=== PATIENT | male | born 1965 | race African-American/Black ===

== ENCOUNTER 2025-05-09 13:13 | Emergency (ER) | payer OTHER, SELFPAY ==
[2025-05-09 13:16] VITALS: BP 158/92; PULSE 58; RESP 17; TEMP 36.7; O2SAT 97
[2025-05-09 13:49] VITALS: BP 146/89; PULSE 60; RESP 17; O2SAT 96
[2025-05-09 13:52] LABS: Hematocrit 37.0 % (42.0-52.0); Hemoglobin 12.2 g/dL (14.0-18.0); Immature Granulocyte Percent A 0.4 % (0-0.5); Lymphocytes Absolute Auto 1.80 K/mm3 (0.9-3.2); Mean Corpuscular HGB Conc 33.0 g/dl (32-36); Mean Corpuscular Hemoglobin 31.8 pg (26-34); Mean Corpuscular Volume 96.4 fl (80-100); Nucleated Red Blood Cells Absolute Auto 0.000 K/mm3 (0.0-0.012); Nucleated Red Blood Cells Perc 0.0 % (0.0-0.2); Platelet Count Result 309 k/mm3 (150-375); Red Blood Count 3.84 M/mm3 (4.6-6.20); White Blood Count 5.0 K/mm3 (4.5-10.0)
[2025-05-09 14:04] LABS: Alanine Aminotransferase 20 U/L (6-50); Albumin Level 3.9 g/dL (3.5-5.1); Alkaline Phosphatase 78 U/L (38-126); Anion Gap 6 mmol/L (4-12); Aspartate Amino Transferase 28 U/L (17-59); Bilirubin,Total 0.2 mg/dL (0.2-1.3); Blood Urea Nitrogen 7 mg/dL (9-20); Calcium 9.0 mg/dL (8.4-10.2); Carbon Dioxide 27 mmol/L (22-30); Chloride 103 mmol/L (98-107); Estimated CRCL calculation 63 ml/min; Estimated Glomerular Filt Rate > 60; Glucose 101 mg/dL (65-110); Potassium 3.9 mmol/L (3.4-5.0); Sodium 136 mmol/L (137-145); Total Protein 6.8 g/dL (6.3-8.2)
--- OUTSIDE RECORDS SUMMARY | 2025-05-09 14:05 | XMS_ITS | Encounter Summary ---
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 Role Phone No, Physician Primary Care Provider [phone] Encounter Details Date Type Department Care Team (Late st Contact Info) Description 05/09/2025 [facility] Post Discharge Follow up phone call [facility] [address] [place] [phone] In[address] Reed Social History Tobacco Use Types Packs/Day Years Used Date Smoking Tobacco: Every Day Cigarettes 1.5 43 Smokeless Tobacco: Never Alcohol Use Standard Drinks/Week Comments Yes 0 (1 standard drink = 0.6 oz pur e alcohol) daily [facility] Utilities Answer Date Recorded In the past 12 months has [employer] electric, gas, oil, or water company threatened to shut off services in your home? No 04/27/2025 Social Connection and Isolat ion Panel [NHANES] Answer Date Recorded In a typical week, how many times do you talk on the phone with family, friends, or neighbors? More than three times a week 04/27/2025 How often do you get togethe r with friends or relatives? More than three times a week 04/27/2025 How often do you attend chur ch or mormonism services? 1 to 4 times per year 04/27/2025 Do you belong to any clubs o r organizations such as anabaptist groups, unions, fraternal or athletic groups, or school groups? No 04/27/2025 How often do you attend meet ings of the clubs or organizations you belong to? Never 04/27/2025 Are you , , di vorced, , never , or living with a partner? 04/27/2025 AUDIT-C Answer Date Recorded Q1: How often do you have a drink containing alcohol? 4 or more times a week 04/26/2025 Q2: How many drinks containi ng alcohol do you have on a typical day when you are drinking? 5 or 6 Q3: How often do you have si x or more drinks on one occasion? Weekly 04/26/2025 Overall Financial Resource Strain (CARDIA) Answe r Date Recorded How hard is it for you to pa y for the very basics like food, housing, medical care, and heating? Somewhat hard 04/27/2025 Hunger Vital Sign Answer Date Recorded Within the past 12 months, y ou worried that your food would run out before you got the money to buy more. Sometimes true Within the past 12 months, t he food you bought just didn't last and you didn't have money to get more. Never true PRAPARE - Transportation Answer Date Re corded In the past 12 months, has l ack of transportation kept you from medical appointments or from getting medications? No 04/10 In the past 12 months, has l ack of transportation kept you from meetings, work, or from getting things needed for daily living? No 04/27/2025 Housing Stability Vital Sign Answer Jean Claude e Recorded In the last 12 months, was t here a time when you were not able to pay the mortgage or rent on time? No 04/27/2025 In the past 12 months, how m any times have you moved where you were living? 0 04/27/2025 At any time in the past 12 m [facility], were you homeless or living in a fdc (including now)? No 04/27/2025 Personal Safety Answer Date Recorded Have you ever been in or are you currently in a harmful physical or emotional relationship or is someone making you feel afraid or unsafe? Denies 04/26/2025 Sex and Gender Information Value Date Recorded Sex Assigned at Not on file Legal Sex Male 10:44 AM WORK STUDY STUDENT Gender Identity Not on file Sexual Orientation Not on file documented as of this encounter Plan of Treatment Not on file documented as of this encounter Visit Diagnoses Not on filedocumented in this encounter Care Teams Aircraft Powerplant Repairer Relationship Specialty Start Date End Date No, Physician PCP - General 03/11/25 documented as of this encounter
--- OUTSIDE RECORDS SUMMARY | 2025-05-09 14:06 | XMS_ITS | Clinical Summary ---
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 Name Role Phone No, Physician Primary Care Provider [phone] Allergies Active Allergy Reactions Criticality Noted Date Comments Shrimp Other (See comments) Low 11/09/2017 sick Medications aspirin 81 mg enteric coated tabletIndication s:cerebral ischemia Take 1 tablet (81 mg total) by mouth daily 30 tablet 1 03/30/2025 05/29/20 25 Active atorvastatin (LIPITOR) 80 mg tablet Take 1 tablet (80 mg total) by mouth nightly 30 tablet 1 03/29/2025 05/28/20 25 Active dilTIAZem XR (CARDIZEM CD,DILACOR XR) 240 mg 24 hr capsule Take 1 capsule (240 mg total) by mouth daily 30 capsule 03/30/2025 05/29/20 25 Active lisinopriL (PRINIVIL,ZESTRI L) 40 mg tablet Take 1 tablet (40 mg total) by mouth daily 30 tablet 03/30/2025 03/30/[address] (PROTONIX) 40 mg EC tabletIndication s:Stress Ulcer Prophylaxis Take 1 tablet (40 mg total) by mouth daily 30 tablet 03/29/2025 Active Active Problems Problem Noted Date Diagnosed Date Alcohol withdrawal syndrome without complication 04/28/2025 Lightheadedness 04/27/2025 PAC (premature atrial contraction) 04/27/2025 Epigastric pain 04/18/2025 Substance use disorder 04/18/2025 Uncontrolled hypertension 04/18/2025 PAF (paroxysmal atrial fibrillation) 03/26/2025 Alcohol use disorder 03/24/2025 Hypertensive urgency 03/23/2025 Polysubstance abuse 03/23/2025 Abdominal pain 03/22/2025 Cerebrovascular accident (CVA) 03/22/2025 Quadriceps strain, left, initial encounter 11/18 Sprain of left knee 11/18/2024 Nausea and vomiting in adult 11/18/2024 Encounters Date Type Department Care Team Description 05/09/2025 [facility] Post Discharge Follow up phone call [address] [address] Ines Reed 05/01/2025 Results Follow-Up [facility] at [address] [phone] Ely Babin MD [facility] Mobile Cardiac Telemetry Event Monitor 04/27/2025 Documentation [facility] Warm Hand Off Program [address] [place], [place] [phone] Rahul Blanca Syeda 04/26/2025 1:10 PM CDT - 04/29/2025 11:41 AM CDT Hospital Encounter [address] [address] Torie Batista MD Kheirkhahan, Nazanin, MD Hypertensive urgency (Primary Dx); Alcohol withdrawal syndrome without complication (HCC); Cocaine abuse (HCC) Discharge Disposition: Discharge to home or self care 04/23/2025 [facility] Warm Hand Off Program [address] [place], [place] [phone] Sharmila Vargas 04/21/2025 Documentation [facility] Warm Hand Off Program [address] [place] [address] Rahul Blancashaheen Lanad 04/20/2025 Documentation [facility] Warm Hand Off Program [address] [place], [place] [phone] Sharmila Vargas 04/18/2025 2:58 PM CDT - 04/23/2025 3:27 PM CDT Hospital Encounter [address] [address] Mirella Rodríguez MD Kheirkhahan, Nazanin, MD Sargsyan, Narine, MD Epigastric pain (Primary Dx); Nausea and vomiting in adult; Alcohol use disorder; Substance use disorder; Uncontrolled hypertension Discharge Disposition: Left Against Medical Advice 04/09/2025 Telephone [facility] at [facility] [address] [facility] [address] [place] [address] Daniela Linares MA 04/02/2025 Telephone [facility] Medical Group Cardiology [address] [facility] [address] [place] [address] Daniela Linares MA 03/29/2025 11:48 AM CDT - 03/29/2025 11:59 PM CDT Hospital Encounter [facility] Cardiology 1 [place] [address] PAF (paroxysmal atrial fibrillation) (HCC) Discharge Disposition: Discharge to home or self care 03/26/2025 Documentation [facility] Warm Hand Off Program [address] [place] [phone] Butch Leggett 03/24/2025 Documentation [facility] Warm Hand Off Program [address] [place] [phone] Butch Leggett 03/22/2025 5:15 AM CDT - 03/29/2025 11:36 AM CDT Hospital Encounter [facility] Acute Medicine [address] [place] [id number] Akbar Bhagat MD Richards, Carlos Harper Jr., Jia Manley, Juliana Ch MD PAF (paroxysmal atrial fibrillation) (HCC) (Primary Dx); Abdominal pain; Cerebrovascular accident (CVA), unspecified mechanism (HCC); Alcohol use disorder Discharge Disposition: Discharge to home or self care from Last 3 Months Surgical History Surgery Date Site/Laterality Comments HERNIA REPAIR Medical History Medical History Date Comments Hypertension Social History Tobacco Use Types Packs/Day Years Used Date Smoking Tobacco: Every Day Cigarettes 1.5 43 Smokeless Tobacco: Never Tobacco Cessation:Ready to Q uit: Not Asked; Counseling Given: Not Answered Alcohol Use Standard Drinks/Week Comments Yes 0 (1 standard drink = 0.6 oz pur e alcohol) daily [facility] Utilities Answer Date Recorded In the past 12 months has th e electric, gas, oil, or water company threatened [...] often do you attend chur ch or mormon services? 1 to 4 times per year 04/27/2025 Do you belong to any clubs o r organizations such as worship groups, unions, fraternal or athletic groups, or [...] any time in the past 12 m [facility], were you homeless or living in a usp (including now)? No 04/27/2025 Personal Safety Answer Date Recorded Have you ever been in or are you currently in a harmful physical or emotional relationship or is someone making you feel afraid or unsafe? Denies 04/26/2025 Sex and Gender Information Value Date Recorded Sex Assigned at Not on file Legal Sex Male 10:44 AM [employer]PONDENCE [employer]PER[employer] Gender Identity Not on file Sexual Orientation Not on file Obstetrics History Last Filed Vital Signs Vital Sign Reading Time Taken Comments Blood Pressure 134/89 04/29/2025 10:52 AM CDT Pulse 69 04/29/2025 10:52 AM CDT Temperature 36.6 C (97.9 F) 04/29/2025 10:52 AM CDT Respiratory Rate 20 04/29/2025 10:5 2 AM CDT Oxygen Saturation 99% 04/29/2025 10: 52 AM CDT Inhaled Oxygen Concentration - - Weight 58.5 kg (128 lb 15.5 oz) 04/26/2025 8:28 PM CDT Height 167.6 cm (5' 6) 04/26/2025 8:28 PM CDT Body Mass Index 20.82 04/26/2025 8:28 PM CDT Plan of Treatment Health Maintenance Due Date Last Done Comments Colon Cancer Screening-Colonoscopy 1966 Depression Screening 1966 Hepatitis C Screening 1966 Prostate Cancer Screening-PSA 1966 Hepatitis B Screening 1984 Regular Well Visit/Exam 18-64 1984 Pneumococcal vaccine <65 (1 of 2 - PCV) 1985 Lung Cancer Screening 2016 Zoster Vaccine (1 of 2) 2016 Influenza Vaccine (#1) 2025 08/17/2018, 2017 DTaP/Tdap/Td Vaccine (3 - Td or Tdap) 06/14/203201/2022, 11/16/2017 Procedures Procedure Name Priority Date/Time Associated Diagnosis Comments EGFR Routine 04/29/2025 7:17 AM CDT DIFFERENTIAL AUTO Routine 04/29/2025 7:1 7 AM CDT PHOSPHORUS Routine 04/29/2025 7:17 AM CDT COMPREHENSIVE METABOLIC PANEL Routine 04/29/2025 7:17 AM CDT CBC WITH AUTO DIFFERENTIAL Routine 04/29/2025 7:17 AM CDT EGFR Routine 04/28/2025 4:59 AM CDT DIFFERENTIAL AUTO Routine 04/28/2025 4:5 9 AM CDT PHOSPHORUS Routine 04/28/2025 4:59 AM CDT MAGNESIUM Routine 04/28/2025 4:59 AM CDT COMPREHENSIVE METABOLIC PANEL Routine 04/28/2025 4:59 AM CDT CBC WITH AUTO DIFFERENTIAL Routine 04/28/2025 4:59 AM CDT EGFR Routine 04/27/2025 5:50 AM CDT DIFFERENTIAL AUTO Routine 04/27/2025 5:5 0 AM CDT MAGNESIUM Routine 04/27/2025 5:50 AM CDT COMPREHENSIVE METABOLIC PANEL Routine 04/27/2025 5:50 AM CDT CBC WITH AUTO DIFFERENTIAL Routine 04/27/2025 5:50 AM CDT TROPONIN T HIGH-SENSITIVITY 6-HOUR Timed 04/26/2025 7:34 PM CDT ETHANOL Add-On 04/26/2025 5:19 PM CDT TROPONIN T HIGH-SENSITIVITY 4-HR Timed 04/26/2025 5:19 PM CDT SEPSIS LACTATE WITH REFLEX Timed 04/26/2025 4:47 PM CDT TROPONIN T HIGH-SENSITIVITY 2-HOUR Timed 04/26/2025 4:[address] HEAD WO CONTRAST ED 04/26/2025 3 :42 PM CDT XR CHEST 1 VIEW ED 04/26/2025 1:41 PM CDT TROPONIN T HIGH-SENSITIVITY SERIES (BASELINE, 2HR, 4HR, 6HR) STAT 04/26/2025 1:41 PM CDT SEPSIS LACTATE WITH REFLEX STAT 04/26/2025 1:41 PM CDT URINALYSIS AND REFLEX TO MICROSCOPIC AND CULTURE STAT 04/26/2025 1:00 PM CDT PROTIME-INR STAT 04/26/2025 12:14 PM CDT LIPASE STAT 04/26/2025 12:14 PM CDT EGFR STAT 04/26/2025 12:14 PM CDT DIFFERENTIAL AUTO STAT 04/26/2025 12: 14 PM CDT COMPREHENSIVE METABOLIC PANEL STAT 04/26/2025 12:14 PM CDT CBC WITH AUTO DIFFERENTIAL STAT 04/26/2025 12:14 PM CDT ECG 12-LEAD STAT 04/26/2025 12:08 PM CDT CBC WITHOUT DIFFERENTIAL Routine 04/22/2025 11:11 AM CDT EGFR Routine 04/21/2025 9:00 AM CDT COMPREHENSIVE METABOLIC PANEL Routine 04/21/2025 9:00 AM CDT HEMOGLOBIN AND HEMATOCRIT Timed 04/20/2025 5:49 AM CDT EGFR Routine 04/20/2025 12:15 AM CDT MAGNESIUM Routine 04/20/2025 12:15 AM CDT COMPREHENSIVE METABOLIC PANEL Routine 04/20/2025 12:15 AM CDT HEMOGLOBIN AND HEMATOCRIT Timed 04/20/2025 12:15 AM CDT HEMOGLOBIN AND HEMATOCRIT Timed 04/19/2025 5:38 PM CDT HEMOGLOBIN AND HEMATOCRIT Timed 04/19/2025 11:35 AM CDT EGFR Routine 04/19/2025 6:43 AM CDT DIFFERENTIAL AUTO Routine 04/19/2025 6:4 3 AM CDT MAGNESIUM Routine 04/19/2025 6:43 AM CDT COMPREHENSIVE METABOLIC PANEL Routine 04/19/2025 6:43 AM CDT CBC WITH AUTO DIFFERENTIAL Routine 04/19/2025 6:43 AM CDT DRUGS OF ABUSE SCREEN, URINE WITHOUT CONFIRMATION STAT 04/18/2025 8:51 PM CDT URINALYSIS AND REFLEX TO MICROSCOPIC AND CULTURE STAT 04/18/2025 8:[address] ABDOMEN PELVIS W CONTRAST ED 04/18/2025 7:20 PM CDT ETHANOL STAT 04/18/2025 7:03 PM CDT TROPONIN T HIGH-SENSITIVITY 6-HOUR Timed 04/18/2025 7:03 PM CDT TROPONIN T HIGH-SENSITIVITY 4-HR Timed 04/18/2025 4:11 PM CDT XR CHEST 1 VIEW ED 04/18/2025 12:31 PM CDT LIPASE STAT 04/18/2025 12:17 PM CDT EGFR STAT 04/18/2025 12:17 PM CDT DIFFERENTIAL AUTO STAT 04/18/2025 12: 17 PM CDT TROPONIN T HIGH-SENSITIVITY SERIES (BASELINE, 2HR, 4HR, 6HR) STAT 04/18/2025 12:17 PM CDT COMPREHENSIVE METABOLIC PANEL STAT 04/18/2025 12:17 PM CDT CBC WITH AUTO DIFFERENTIAL STAT 04/18/2025 12:17 PM CDT ECG 12-LEAD STAT 04/18/2025 12:11 PM CDT MCT - MOBILE CARDIAC TELEMETRY EVENT MONITOR Routine 03/29/2025 11:56 AM CDT PAF (paroxysmal atrial fibrillation) (HCC) EGFR Routine 03/29/2025 4:03 AM CDT CBC WITHOUT DIFFERENTIAL Routine 03/29/2025 4:03 AM CDT BASIC METABOLIC PANEL Routine 03/29/2025 4:03 AM CDT MRI ABDOMEN KIDNEY W WO CONTRAST IP Routine 03/28/2025 3:25 PM CDT EGFR Routine 03/28/2025 6:42 AM CDT CBC WITHOUT DIFFERENTIAL Routine 03/28/2025 6:42 AM CDT BASIC METABOLIC PANEL Routine 03/28/2025 6:42 AM CDT US KIDNEY COMPLETE IP Routine 03/27/2025 3: 41 PM CDT EGFR Routine 03/27/2025 10:52 AM CDT CBC WITHOUT DIFFERENTIAL Routine 03/27/2025 10:52 AM CDT BASIC METABOLIC PANEL Routine 03/27/2025 10:52 AM CDT URINALYSIS AND REFLEX TO MICROSCOPIC Routine 03/27/2025 6:[address] ABDOMEN PELVIS WO CONTRAST IP Routine 03/26/2025 3:27 PM CDT XR KUB IP Routine 03/26/2025 12:15 PM CDT ECG 12-LEAD Routine 03/26/2025 11:02 AM CDT MAGNESIUM STAT 03/26/2025 6:40 AM CDT EGFR Routine 03/26/2025 6:40 AM CDT BASIC METABOLIC PANEL Routine 03/26/2025 6:40 AM CDT EGFR Routine 03/24/2025 5:56 AM CDT DIFFERENTIAL AUTO Routine 03/24/2025 5:5 6 AM CDT PHOSPHORUS Routine 03/24/2025 5:56 AM CDT MAGNESIUM Routine 03/24/2025 5:56 AM CDT COMPREHENSIVE METABOLIC PANEL Routine 03/24/2025 5:56 AM CDT CBC WITH AUTO DIFFERENTIAL Routine 03/24/2025 5:56 AM CDT EGFR Routine 03/23/2025 3:34 AM CDT DIFFERENTIAL AUTO Routine 03/23/2025 3:3 4 AM CDT COMPREHENSIVE METABOLIC PANEL Routine 03/23/2025 3:34 AM CDT CBC WITH AUTO DIFFERENTIAL Routine 03/23/2025 3:34 AM CDT LIPID PANEL Routine 03/23/2025 3:34 AM CDT HEMOGLOBIN A1C Routine 03/23/2025 3:34 AM CDT DRUGS OF ABUSE SCREEN, URINE WITHOUT CONFIRMATION STAT 03/22/2025 6:16 PM CDT URINALYSIS AND REFLEX TO MICROSCOPIC AND CULTURE STAT 03/22/2025 6:16 PM CDT US CAROTIDS DUPLEX BILATERAL IP Routine 03/22/2025 5:31 PM CDT MRI BRAIN WO CONTRAST ED 03/22/2025 1:56 PM CDT TRANSTHORACIC ECHO (TTE) COMPLETE W DOPPLER/CF WO CONTRAST W BUBBLE Routine 03/22/2025 10:53 AM CDT B ABO / RH CONFIRMATION TESTING STAT 03/22/2025 10:10 AM CDT ETHANOL Add-On 03/22/2025 10:[address] ABDOMEN PELVIS W CONTRAST ED 03/22/2025 7:09 AM CDT XR CHEST 1 VIEW ED 03/22/2025 6:28 AM CDT LIPASE Add-On 03/22/2025 5:59 AM CDT ANTIBODY SCREEN STAT 03/22/2025 5:59 AM CDT ABO/RH STAT 03/22/2025 5:59 AM CDT TYPE AND SCREEN STAT 03/22/2025 5:59 AM CDT APTT STAT 03/22/2025 5:59 AM CDT PROTIME-INR STAT 03/22/2025 5:59 AM CDT TROPONIN T HIGH-SENSITIVITY STAT 03/22/2025 5:59 AM CDT ECG 12-LEAD Routine 03/22/2025 5:[address] HEAD WO CONTRAST ED 03/22/2025 4 :45 AM CDT EGFR STAT 03/22/2025 2:24 AM CDT DIFFERENTIAL AUTO STAT 03/22/2025 2:2 4 AM CDT COMPREHENSIVE METABOLIC PANEL STAT 03/22/2025 2:24 AM CDT CBC WITH AUTO DIFFERENTIAL STAT 03/22/2025 2:24 AM CDT from Last 3 Months Results * eGFR (04/29/2025 7:17 AM CDT) [facility] eGFR 80 >=60 mL/min/1. 73 m2 Comment: Interpretive Data Reference Interval Normal >/= 90 mL/min/1.73m2 Mildly decreased* 60 - 89 mL/min/1.73m2 Mildly to moderately decreased 45 - 59 mL/min/1.73m2 Moderately to severely decreased 30 - 44 mL/min/1.73m2 Severely decreased 15 - 29 mL/min/1.73m2 Kidney Failure < 15 mL/min/1.73m2 *Relative to young adult level Estimated glomerular filtration rate is determined by the 2021 CKD-EPI equation recommended by the National Kidney Foundation (A Unifying Approach to GFR Estimation: Recommendations of the NKF-ASK Task Force on Reassessing the Inclusion of Race in Diagnosing Kidney Disease, JASN 2020). The CKD-EPI equation should not be used for patients with unstable renal function and has not been validated in children and those over 70. Current interpretive data was last reviewed 2021. Blood 04/29/2025 7:17 AM CDT 04/29/2025 7:23 AM CDT us Simon Pham MD LAB BLOOD ORDERABLES Final Resu lt [facility] ([place]) [address] [facility] [place] [address] * Differential, auto (04/29/2025 7:17 AM CDT) Neutrophil abs 2.34 1.50 - 6.50 K/cumm Imm gran abs 0.02 0.00 - 0.10 K/cumm [facility] ([facility]) Lymphocyte abs 1.62 0.80 - 3.30 K/cumm [facility] ([facility]) Monocyte abs 0.78 0.20 - 0.80 K/cumm [facility] ([facility]) Eosinophil abs 0.41 0.00 - 0.50 K/cumm [facility] ([facility]) Basophil abs 0.05 0.00 - 0.10 K/cumm [facility] ([facility]) Neutrophil pct 44.8 % [facility] ([facility]) Comment: Interpretive Data Percent cell count reference ranges are not reported, since discordance with absolute values may lead to misinterpretation of CBC data. Current Interpretive Data was last revised on 2018. Imm gran pct 0.4 % [facility] ([facility]) Comment: Interpretive Data Percent cell count reference ranges are not reported, since discordance with absolute values may lead to misinterpretation of CBC data. Current Interpretive Data was last revised on 2018. Lymphocyte pct 31.0 % [facility] ([facility]) Comment: Interpretive Data Percent cell count reference ranges are not reported, since discordance with absolute values may lead to misinterpretation of CBC data. Current Interpretive Data was last revised on 2018. Monocyte pct 14.9 % [facility] ([facility]) Comment: Interpretive Data Percent cell count reference ranges are not reported, since discordance with absolute values may lead to misinterpretation of CBC data. Current Interpretive Data was last revised on 2018. Eosinophil pct 7.9 % [facility] ([facility] Comment: Interpretive Data Percent cell count reference ranges are not reported, since discordance with absolute values may lead to misinterpretation of CBC data. Current Interpretive Data was last revised on 2018. Basophil pct 1.0 % [facility] ([facility]) Comment: Interpretive Data Percent cell count reference ranges are not reported, since discordance with absolute values may lead to misinterpretation of CBC data. Current Interpretive Data was last revised on 2018. Blood 04/29/2025 7:17 AM CDT 04/29/2025 7:23 AM CDT us Simon Pham MD LAB BLOOD ORDERABLES Final Resu lt [facility] ([facility]) [address] [facility] Department [place] [address] * (ABNORMAL) CBC with auto differential (04/29/2025 7:17 AM CDT) WBC 5.22 3.80 - 9.90 K/cumm Hgb 12.3(L) 13.0 - 17.5 g/dL [facility] ([facility]) Hct 36.8(L) 38.9 - 50.3 % [facility] ([facility]) Plt 277 150 - 400 K/cumm [facility] ([facility]) MPV 9.4 9.1 - 12.3 fL [facility]) RBC 3.82(L) 4.30 - 5.80 M/cumm [facility] ([facility]) MCV 96.3 81.3 - 96.4 fL [facility]) MCH 32.2 27.1 - 33.3 pg [facility]) MCHC 33.4 32.3 - 35.7 g/dL [facility]) RDW CV 12.3 11.1 - 14.9 % [facility]) RDW SD 43.5 35.7 - 48.1 fL [facility]) NRBC abs 0.00 0.00 - 0.01 K/cumm [facility] ([facility]) Blood 04/29/2025 7:17 AM CDT 04/29/2025 7:23 AM CDT Simon Pham MD LAB BLOOD ORDERABLES Final Resu lt [facility] ([facility]) 1 [facility] [employer] [place] [address] * Phosphorus (04/29/2025 7:17 AM CDT) Pathologist [facility] Phosphorus, pl 3.1 2.3 - 4.5 mg/dL [facility] Blood 04/29/2025 7:17 AM CDT 04/29/2025 7:23 AM CDT us Simon Pham MD LAB BLOOD ORDERABLES Final Resu lt [facility] ([facility]) [facility] [place] [employer] [place] [address] * (ABNORMAL) Comprehensive metabolic panel (04/29/2025 7:17 AM CDT) Sodium 141 135 - 145 mmol/L [facility] Potassium, pl 4.5 3.3 - 4.9 mmol/L [facility]) Chloride 107 97 - 110 mmol/L [facility]) CO2 28 22 - 32 mmol/L [facility]) Anion gap 6 2 - 15 mmol/L [facility] BUN 7 6 - 25 mg/dL [facility] Creatinine 1.07 0.80 - 1.30 mg/dL [facility]) Glucose 97 70 - 199 mg/dL [facility] Comment: Interpretive Data Fasting glucose >/= 126 mg/dl is diagnostic for diabetes. Fasting is defined as no caloric intake for at least 8 hours. Fasting glucose between 100 mg/dl to 125 mg/dl is diagnostic of prediabetes. In a patient with classic symptoms of hyperglycemia or hyperglycemic crisis, a random glucose >/= 200 mg/dl is diagnostic for diabetes. In the absence of unequivocal hyperglycemia, results should be confirmed by repeat testing. The classification and Diagnosis of Diabetes Diabetes Care 2021; 46: S19-S40. Current interpretive data was last revised 2022. Calcium 9.0 8.5 - 10.3 mg/dL [facility] ([facility]) Bilirubin, total 0.2 0.1 - 1.2 mg/dL [facility] ([facility]) Protein, pl 6.2(L) 6.5 - 8.5 g/dL [facility]) Albumin 3.7 3.5 - 5.0 g/dL [facility]) Alk phos 74 40 - 130 Units/L [facility] ALT 13 7 - 55 Units/L [facility] AST 13 10 - 50 Units/L [facility]) Blood 04/29/2025 7:17 AM CDT 04/29/2025 7:23 AM CDT us Simon Pham MD LAB BLOOD ORDERABLES Final Resu lt [facility] ([facility]) [address] [facility] Department [place] [address] * eGFR (04/28/2025 4:59 AM CDT) eGFR >90 >=60 mL/min/1. 73 m2 Comment: Interpretive Data Reference Interval Normal >/= 90 mL/min/1.73m2 Mildly decreased* 60 - 89 mL/min/1.73m2 Mildly to moderately decreased 45 - 59 mL/min/1.73m2 Moderately to severely decreased 30 - 44 mL/min/1.73m2 Severely decreased 15 - 29 mL/min/1.73m2 Kidney Failure < 15 mL/min/1.73m2 *Relative to young adult level Estimated glomerular filtration rate is determined by the 2020 CKD-EPI equation recommended by the National Kidney Foundation (A Unifying Approach to GFR Estimation: Recommendations of the NKF-ASK Task Force on Reassessing the Inclusion of Race in Diagnosing Kidney Disease, JASN 2020). The CKD-EPI equation should not be used for patients with unstable renal function and has not been validated in children and those over 70. Current interpretive data was last reviewed 2021. Blood 04/28/2025 4:59 AM CDT 04/28/2025 6:11 AM CDT us Simon Pham MD LAB BLOOD ORDERABLES Final Resu lt [facility] ([place] [address] [facility] Department [place] [address] * (ABNORMAL) Differential, auto (04/28/2025 4:59 AM CDT) Neutrophil abs 1.93 1.50 - 6.50 K/cumm Imm gran abs 0.02 0.00 - 0.10 K/cumm [facility] ([facility]) Lymphocyte abs 1.76 0.80 - 3.30 K/cumm [facility] ([facility]) Monocyte abs 0.81(H) 0.20 - 0.80 K/cumm [facility] ([facility]) Eosinophil abs 0.46 0.00 - 0.50 K/cumm [facility] ([facility]) Basophil abs 0.05 0.00 - 0.10 K/cumm [facility]) Neutrophil pct 38.4 % [facility]) Comment: Interpretive Data Percent cell count reference ranges are not reported, since discordance with absolute values may lead to misinterpretation of CBC data. Current Interpretive Data was last revised on 2018. Imm gran pct 0.4 % [facility] ([facility]) Comment: Interpretive Data Percent cell count reference ranges are not reported, since discordance with absolute values may lead to misinterpretation of CBC data. Current Interpretive Data was last revised on 2018. Lymphocyte pct 35.0 % [facility] ([facility] Comment: Interpretive Data Percent cell count reference ranges are not reported, since discordance with absolute values may lead to misinterpretation of CBC data. Current Interpretive Data was last revised on 2018. Monocyte pct 16.1 % [facility] Comment: Interpretive Data Percent cell count reference ranges are not reported, since discordance with absolute values may lead to misinterpretation of CBC data. Current Interpretive Data was last revised on 2018. Eosinophil pct 9.1 % [facility] ([facility]) Comment: Interpretive Data Percent cell count reference ranges are not reported, since discordance with absolute values may lead to misinterpretation of CBC data. Current Interpretive Data was last revised on 2018. Basophil pct 1.0 % [facility] ([facility]) Comment: Interpretive Data Percent cell count reference ranges are not reported, since discordance with absolute values may lead to misinterpretation of CBC data. Current Interpretive Data was last revised on 2018. Blood 04/28/2025 4:59 AM CDT 04/28/2025 6:11 AM CDT us Simon Pham MD LAB BLOOD ORDERABLES Final Resu lt [facility] ([facility]) [address] [facility] Department [place] [address] * (ABNORMAL) CBC with auto differential (04/28/2025 4:59 AM CDT) WBC 5.03 3.80 - 9.90 K/cumm Hgb 11.3(L) 13.0 - 17.5 g/dL [facility] ([facility]) Hct 34.0(L) 38.9 - 50.3 % [facility] Plt 257 150 - 400 K/cumm [facility]) MPV 10.2 9.1 - 12.3 fL [facility] RBC 3.54(L) 4.30 - 5.80 M/cumm [facility] ([facility]) MCV 96.0 81.3 - 96.4 fL [facility]) MCH 31.9 27.1 - 33.3 pg [facility]) MCHC 33.2 32.3 - 35.7 g/dL [facility]) RDW CV 12.3 11.1 - 14.9 % [facility]) RDW SD 43.8 35.7 - 48.1 fL [facility] ([facility]) NRBC abs 0.00 0.00 - 0.01 K/cumm [facility]) Blood 04/28/2025 4:59 AM CDT 04/28/2025 6:11 AM CDT Simon Pham MD LAB BLOOD ORDERABLES Final Resu lt Performing Organization Address [facility] Co de Phone Number [facility] ([facility] [address] [facility] [place] [address] * Phosphorus (04/28/2025 4:59 AM CDT) Phosphorus, pl 3.0 2.3 - 4.5 mg/dL [facility] ([facility] Blood 04/28/2025 4:59 AM CDT 04/28/2025 6:11 AM CDT Simon Pham MD LAB BLOOD ORDERABLES Final Resu lt Performing Organization Address City/[facility] Co de Phone Number [facility] ([facility] [address] [facility] [place] [address] * Magnesium (04/28/2025 4:59 AM CDT) Magnesium 2.0 1.4 - 2.5 mg/dL [facility] ([facility] Blood 04/28/2025 4:59 AM CDT 04/28/2025 6:11 AM CDT Simon Pham MD LAB BLOOD ORDERABLES Final Resu lt Performing Organization Address City/[facility]/ZIP Co de Phone Number [facility] ([facility]) [address] [facility] Department [place] [address] * (ABNORMAL) Comprehensive metabolic panel (04/28/2025 4:59 AM CDT) Sodium 140 135 - 145 mmol/L [facility] ([facility]) Potassium, pl 3.5 3.3 - 4.9 mmol/L [facility]) Chloride 108 97 - 110 mmol/L [facility]) CO2 21(L) 22 - 32 mmol/L [facility]) Anion gap 11 2 - 15 mmol/L [facility]) BUN 7 6 - 25 mg/dL [facility]) Creatinine 0.96 0.80 - 1.30 mg/dL [facility]) Glucose 157 70 - 199 mg/dL [facility] ([facility]) Comment: Interpretive Data Fasting glucose >/= 126 mg/dl is diagnostic for diabetes. Fasting is defined as no caloric intake for at least 8 hours. Fasting glucose between 100 mg/dl to 125 mg/dl is diagnostic of prediabetes. In a patient with classic symptoms of hyperglycemia or hyperglycemic crisis, a random glucose >/= 200 mg/dl is diagnostic for diabetes. In the absence of unequivocal hyperglycemia, results should be confirmed by repeat testing. The classification and Diagnosis of Diabetes Diabetes Care 2021; 46: S19-S40. Current interpretive data was last revised 2022. Calcium 8.6 8.5 - 10.3 mg/dL [facility] ([place]) Bilirubin, total 0.2 0.1 - 1.2 mg/dL [facility] ([place]) Protein, pl 5.7(L) 6.5 - 8.5 g/dL [facility] ([place]) Albumin 3.5 3.5 - 5.0 g/dL [facility] ([place]) Alk phos 66 40 - 130 Units/L [facility] ([place]) ALT 16 7 - 55 Units/L [facility] ([place]) AST 15 10 - 50 Units/L [facility] ([place]) Blood 04/28/2025 4:59 AM CDT 04/28/2025 6:11 AM CDT Simon Pham MD LAB BLOOD ORDERABLES Final Resu lt Performing Organization Address City/[facility]/ZIP Co de Phone Number [place] ([place]) 1 [facility] [employer] [place] [address] * eGFR (04/27/2025 5:50 AM CDT) eGFR 82 >=60 mL/min/1. 73 m2 Comment: Interpretive Data Reference Interval Normal >/= 90 mL/min/1.73m2 Mildly decreased* 60 - 89 mL/min/1.73m2 Mildly to moderately decreased 45 - 59 mL/min/1.73m2 Moderately to severely decreased 30 - 44 mL/min/1.73m2 Severely decreased 15 - 29 mL/min/1.73m2 Kidney Failure < 15 mL/min/1.73m2 *Relative to young adult level Estimated glomerular filtration rate is determined by the 2020 CKD-EPI equation recommended by the National Kidney Foundation (A Unifying Approach to GFR Estimation: Recommendations of the NKF-ASK Task Force on Reassessing the Inclusion of Race in Diagnosing Kidney Disease, JASN 2020). The CKD-EPI equation should not be used for patients with unstable renal function and has not been validated in children and those over 70. Current interpretive data was last reviewed 2021. Blood 04/27/2025 5:50 AM CDT 04/27/2025 6:13 AM CDT Simon Pham MD LAB BLOOD ORDERABLES Final Resu lt [place] ([place]) 1 [facility] [place] [address] * (ABNORMAL) Differential, auto (04/27/2025 5:50 AM CDT) Neutrophil abs 1.88 1.50 - 6.50 K/cumm Imm gran abs 0.02 0.00 - 0.10 K/cumm [place] ([place]) Lymphocyte abs 1.65 0.80 - 3.30 K/cumm [facility] ([place]) Monocyte abs 0.81(H) 0.20 - 0.80 K/cumm [facility] ([place]) Eosinophil abs 0.40 0.00 - 0.50 K/cumm [facility] ([place]) Basophil abs 0.04 0.00 - 0.10 K/cumm [facility] ([place]) Neutrophil pct 39.2 % [facility] ([place]) Comment: Interpretive Data Percent cell count reference ranges are not reported, since discordance with absolute values may lead to misinterpretation of CBC data. Current Interpretive Data was last revised on 2018. Imm gran pct 0.4 % [facility] ([place]) Comment: Interpretive Data Percent cell count reference ranges are not reported, since discordance with absolute values may lead to misinterpretation of CBC data. Current Interpretive Data was last revised on 2018. Lymphocyte pct 34.4 % [facility] ([place]) Comment: Interpretive Data Percent cell count reference ranges are not reported, since discordance with absolute values may lead to misinterpretation of CBC data. Current Interpretive Data was last revised on 2018. Monocyte pct 16.9 % [facility] ([place]) Comment: Interpretive Data Percent cell count reference ranges are not reported, since discordance with absolute values may lead to misinterpretation of CBC data. Current Interpretive Data was last revised on 2018. Eosinophil pct 8.3 % [facility] ([place]) Comment: Interpretive Data Percent cell count reference ranges are not reported, since discordance with absolute values may lead to misinterpretation of CBC data. Current Interpretive Data was last revised on 2018. Basophil pct 0.8 % [facility] ([place]) Comment: Interpretive Data Percent cell count reference ranges are not reported, since discordance with absolute values may lead to misinterpretation of CBC data. Current Interpretive Data was last revised on 2018. Blood 04/27/2025 5:50 AM CDT 04/27/2025 6:13 AM CDT us Simon Pham MD LAB BLOOD ORDERABLES Final Resu lt [facility] ([place]) 1 [facility] [place] [address] * (ABNORMAL) CBC with auto differential (04/27/2025 5:50 AM CDT) WBC 4.80 3.80 - 9.90 K/cumm Hgb 11.6(L) 13.0 - 17.5 g/dL [facility] ([place]) Hct 34.8(L) 38.9 - 50.3 % [facility] ([place]) Plt 254 150 - 400 K/cumm [facility] ([place]) MPV 10.1 9.1 - 12.3 fL [facility] ([place]) RBC 3.61(L) 4.30 - 5.80 M/cumm [facility] ([place]) MCV 96.4 81.3 - 96.4 fL [facility] ([place]) MCH 32.1 27.1 - 33.3 pg [facility] ([place]) MCHC 33.3 32.3 - 35.7 g/dL [facility] ([place]) RDW CV 12.6 11.1 - 14.9 % [facility] ([place]) RDW SD 44.7 35.7 - 48.1 fL [facility] ([place]) NRBC abs 0.00 0.00 - 0.01 K/cumm [facility] ([place]) Blood 04/27/2025 5:50 AM CDT 04/27/2025 6:13 AM CDT us Simon Pham MD LAB BLOOD ORDERABLES Final Resu lt [place] ([place]) 1 [facility] [place] [address] * Magnesium (04/27/2025 5:50 AM CDT) Pathologist [facility] Magnesium 1.8 1.4 - 2.5 mg/dL [facility] ([place]) Blood 04/27/2025 5:50 AM CDT 04/27/2025 6:13 AM CDT us Simon Pham MD LAB BLOOD ORDERABLES Final Resu lt [facility] ([place]) 1 [facility] [place] [address] * (ABNORMAL) Comprehensive metabolic panel (04/27/2025 5:50 AM CDT) Sodium 140 135 - 145 mmol/L [facility] ([place]) Potassium, pl 4.0 3.3 - 4.9 mmol/L [facility] ([place]) Chloride 108 97 - 110 mmol/L [facility] ([place]) CO2 23 22 - 32 mmol/L [facility] ([place]) Anion gap 9 2 - 15 mmol/L [facility] ([place]) BUN 10 6 - 25 mg/dL [facility] ([place]) Creatinine 1.05 0.80 - 1.30 mg/dL [facility] ([place]) Glucose 92 70 - 199 mg/dL [facility] ([place]) Comment: Interpretive Data Fasting glucose >/= 126 mg/dl is diagnostic for diabetes. Fasting is defined as no caloric intake for at least 8 hours. Fasting glucose between 100 mg/dl to 125 mg/dl is diagnostic of prediabetes. In a patient with classic symptoms of hyperglycemia or hyperglycemic crisis, a random glucose >/= 200 mg/dl is diagnostic for diabetes. In the absence of unequivocal hyperglycemia, results should be confirmed by repeat testing. The classification and Diagnosis of Diabetes Diabetes Care 2021; 46: S19-S40. Current interpretive data was last revised 2022. Calcium 8.7 8.5 - 10.3 mg/dL [facility] ([place]) Bilirubin, total 0.2 0.1 - 1.2 mg/dL [facility] ([place]) Protein, pl 5.6(L) 6.5 - 8.5 g/dL [facility] ([place]) Albumin 3.3(L) 3.5 - 5.0 g/dL [facility] ([place]) Alk phos 69 40 - 130 Units/L [facility] ([place]) ALT 15 7 - 55 Units/L [facility] ([place]) AST 25 10 - 50 Units/L [facility] ([place]) Blood 04/27/2025 5:50 AM CDT 04/27/2025 6:13 AM CDT us Simon Pham MD LAB BLOOD ORDERABLES Final Resu lt Performing Organization Address [facility] Co de Phone Number [place] ([place]) 1 [facility] [employer] [place] [place] [address] * Troponin T high-sensitivity 6-hour (04/26/2025 7:34 PM CDT) Trop T hs 15 <=22 ng/L [facility] ([place]) Comment: Interpretive Data For further hscTnT resources including the diagnostic algorithm and an aid in interpretation, copy and paste this link: [email or web address].H.[email or web address]/show/hsTrop Current Interpretive Data last revised 2020. Trop T hs delta 1 ng/L [facility] ([place]) Trop T hs interp Insignificant [facility] ([place]) Blood 04/26/2025 7:34 PM CDT 04/26/2025 7:39 PM CDT us Torie Batista MD LAB BLOOD ORDERABLES Ellen l Result Performing Organization Address City/[facility] Co de Phone Number [place] ([place]) 1 [facility] [employer] [place] [place] [address] * Troponin T high-sensitivity 4-hour (04/26/2025 5:19 PM CDT) Trop T hs 15 <=22 ng/L [facility] ([place]) Comment: Interpretive Data For further hscTnT resources including the diagnostic algorithm and an aid in interpretation, copy and paste this link: [email or web address].H.[email or web address]/show/hsTrop Current Interpretive Data last revised 2020. Trop T hs delta 1 ng/L [facility] ([place]) Trop T hs interp Insignificant [facility] ([place]) Blood 04/26/2025 5:19 PM CDT 04/26/2025 5:51 PM CDT Torie Batista MD LAB BLOOD ORDERABLES Ellen l Result Performing Organization Address [facility]/ZIP Co de Phone Number [place] ([place]) 1 [facility] [place] [address] * Ethanol (04/26/2025 5:19 PM CDT) Ethanol <10 <=10 mg/dL [facility] ([place]) Comment: Interpretive Data Legal limit of intoxication > or = 80 mg/dL Levels > or = 400 mg/dL are potentially TOXIC. Current interpretive data was last revised on 2018. Blood 04/26/2025 5:19 PM CDT 04/26/2025 5:21 PM CDT Torie Batista MD LAB BLOOD ORDERABLES Ellen l Result Performing Organization Address [facility] Co de Phone Number [place] ([place]) 1 [place] [address] * Troponin T high-sensitivity 2-hour (04/26/2025 4:47 PM CDT) Trop T hs 13 <=22 ng/L [place] [facility] ([place]) Comment: Interpretive Data For further hscTnT resources including the diagnostic algorithm and an aid in interpretation, copy and paste this link: https://nrl.testcatalog.org/show/hsTrop Current Interpretive Data last revised 2020. Trop T hs delta See Comment ng/L CE [facility] ([place]) Comment: Inappropriate collection time to report a delta. Testing performed by: [place], [address] Trop T hs pct delta See Comment % [place] ([place]) Comment: Inappropriate collection time to report a delta. Testing performed by: [place], [address] Trop T hs interp See Comment C [place] ([place]) Comment: Inappropriate collection time to report a delta. Testing performed by: [facility], [facility], [place], [address] Blood 04/26/2025 4:47 PM CDT 04/26/2025 4:49 PM CDT Torie Batista MD LAB BLOOD ORDERABLES Ellen l Result [place] ([place]) 1 [facility] Department [place] [address] * Sepsis Lactate w/ Reflex (04/26/2025 4:47 PM CDT) Sepsis Lactate 1.4 0.7 - 2.0 mmol/L Blood 04/26/2025 4:47 PM CDT 04/26/2025 4:49 PM CDT Torie Batista MD LAB BLOOD ORDERABLES Ellen l Result Performing Organization Address [facility] Co de Phone Number [place] ([place]) 1 [place] [address] * CT Head WO Contrast (04/26/2025 3:42 PM CDT) Anatomical Region Laterality Modality Head and Neck N/A Computed Tomogra phy 04/26/2025 4:13 PM CDT Narrative 04/26/2025 4:25 PM CDT EXAM DESCRIPTION: CT HEAD WO CONTRAST REASON FOR STUDY: Dizziness Weakness and feeling faint x 2 hours. Hx of hypertension. TECHNIQUE: Axial images acquired through the brain without intravenous contrast. Images stored on PACS. Automated exposure control was used as a dose optimization technique for this examination. COMPARISON: Comparison head CT 03/22/2025. FINDINGS: BRAIN: Exam compromised by significant patient motion artifact. Within limitation, no acute hemorrhage, edema or mass effect. No recent infarct. 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 No cortical infarct. No mass effect or midline shift. Patchy low density of white matter in periventricular and subcortical regions in keeping with microvascular change.. EXTRA-AXIAL SPACES: No fluid collections. No masses. CALVARIUM: No fracture. SINUSES/MASTOIDS: No fluid or mucosal thickening. ORBITS: No significant abnormality. OTHER: No other significant abnormality. IMPRESSION: Exam compromised by significant patient motion artifact. Within limitation, no acute intracranial findings. MRI may be beneficial for further evaluation. THIS IS AN ELECTRONICALLY VERIFIED FINAL REPORT 04/26/2025 4:25 PM - Electronically signed by Scott TIDWELL: DIANN Report ID: [id number] Reading Location: [id number] Procedure Note Viridiana Arce MD - 04/26/2025 EXAM DESCRIPTION: CT HEAD WO CONTRAST REASON FOR STUDY: Dizziness Weakness and feeling faint x 2 hours. Hx of hypertension. TECHNIQUE: Axial images acquired through the brain without intravenous contrast. Images stored on PACS. Automated exposure control was used asa dose optimization technique for this examination. COMPARISON: Comparison head CT 03/22/2025. FINDINGS: BRAIN: Exam compromised by significant patient motion artifact. Within limitation, no acute hemorrhage, edema or mass effect. No recent infarct. 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 Nocortical infarct. No mass effect or midline shift. Patchy low density of whitematter in periventricular and subcortical regions in keeping with microvascular change.. EXTRA-AXIAL SPACES: No fluid collections. No masses. CALVARIUM: No fracture. SINUSES/MASTOIDS: No fluid or mucosal thickening. ORBITS: No significant abnormality. OTHER: No other significant abnormality. IMPRESSION: Exam compromised by significant patient motion artifact. Withinlimitation, no acute intracranial findings. MRI may be beneficial for furtherevaluation. THIS IS AN ELECTRONICALLY VERIFIED FINAL REPORT 04/26/2025 4:25 PM - Electronically signed by Scott Arce M.D. LC: DIANN Report ID: [id number] Reading Location: [id number] Torie Batista MD IMG CT PROCEDURES Final R esult * XR Chest 1 Vw Portable (04/26/2025 1:41 PM CDT) Anatomical Region Laterality Modality Body, Chest N/A Computed Radiogr aphy 04/26/2025 1:50 PM CDT Narrative 04/26/2025 1:51 PM CDT EXAM DESCRIPTION: XR CHEST 1 VIEW REASON FOR STUDY: weakness Pt arrives with c/o weakness and feeling faint x 2 hours. Hx HTN TECHNIQUE: Single frontal radiographic view(s) of the chest. COMPARISON: 04/18/2025 FINDINGS: The heart, mediastinum, and pulmonary vasculature are grossly stable. There is no definite evidence of a pneumothorax. There is no definite evidence effusion. There are mild patchy right basilar airspace opacities. The osseous structures are acutely grossly stable. IMPRESSION: 1. Mild patchy right basilar airspace opacities, which is likely related to subsegmental atelectasis/scarring and less likely developing airspace disease. THIS IS AN ELECTRONICALLY VERIFIED FINAL REPORT 04/26/2025 1:51 PM - Electronically signed by Jewels Becerra D.O. PS: PS Report ID: [id number] Reading Location: [id number] Procedure Note Jewels Becerra, DO - 04/26/2025 EXAM DESCRIPTION: XR CHEST 1 VIEW REASON FOR STUDY: weakness Pt arrives with c/o weakness and feeling faint x 2 hours. Hx HTN TECHNIQUE: Single frontal radiographic view(s) of the chest. COMPARISON: 04/18/2025 FINDINGS: The heart, mediastinum, and pulmonary vasculature are grossly stable.There is no definite evidence of a pneumothorax. There is no definite evidence effusion. There are mild patchy right basilar airspace opacities. The osseous structures are acutely grossly stable. IMPRESSION: 1. Mild patchy right basilar airspace opacities, which is likely relatedto subsegmental atelectasis/scarring and less likely developing airspacedisease. THIS IS AN ELECTRONICALLY VERIFIED FINAL REPORT 04/26/2025 1:51 PM - Electronically signed by Jewels Becerra D.O. PS: PS Report ID: [id number] Reading Location: [place] [id number] us Torie Batista MD IMG XR PROCEDURES Final R esult * Troponin T high-sensitivity series (baseline, 2hr, 4hr, 6hr) (04/26/2025 1:41 PM CDT) Pathologist [facility] Trop T hs 14 <=22 ng/L [place] ([place]) Comment: Interpretive Data For further hscTnT resources including the diagnostic algorithm and an aid in interpretation, copy and paste this link: https://nrl.testcatalog.org/show/hsTrop Current Interpretive Data last revised 2020. Blood 04/26/2025 1:41 PM CDT 04/26/2025 1:43 PM CDT Torie Batista MD LAB BLOOD ORDERABLES Ellen l Result [place] ([place]) 1 [facility] [place] [address] * (ABNORMAL) Sepsis Lactate w/ Reflex (04/26/2025 1:41 PM CDT) [facility] Sepsis Lactate 2.5(H) 0.7 - 2.0 mmol/L Blood 04/26/2025 1:41 PM CDT 04/26/2025 1:43 PM CDT Torie Batista MD LAB BLOOD ORDERABLES Ellen l Result [place] ([place]) 1 [facility] [employer] [place] [address] * Urinalysis reflex to microscopic and culture Urine (04/26/2025 1:00 PM CDT) Color, ur Straw Yellow Clarity, ur Clear Clear [facility] ([place]) Specific gravity, ur 1.009 1.003 - 1.030 [facility] ([place]) pH, urine 5.5 [facility] ([place]) Comment: Interpretive Data U rine pH is affected by diet, medications, systemic acid-base disturbances, and renal tubular function. pH may affect urinary stone formation. For example, urine pH below 6.0 may help reduce the tendency for calcium phosphate stones and pH greater than 6.0 may reduce the tendency for uric acid stone formation. Source: [facility] [employer] Current Interpretive Data was last revised on 2017 Protein, ur ql Negative Negative [facility] ([place]) Glucose, ur ql Negative Negative [facility] ([place]) Ketones, ur Negative Negative [facility] ([place]) Bilirubin, ur Negative Negative [facility] ([place]) Blood, ur Negative Negative [facility] ([place]) Urobilinogen, ur <2.0 <2.0 mg/dL [facility] ([place]) Nitrite, ur Negative Negative [facility] ([place]) Leukocyte esterase, ur Negative Negative [facility] ([place]) UA reflex comment Reflex conditions for microscopic UA and culture not met. [facility] Urine 04/26/2025 1:00 PM CDT 04/26/2025 1:06 PM CDT us Torie Batista MD LAB MICROBIOLOGY - GENERA L ORDERABLES Final Result [facility] ([place]) 1 [facility] Department [place] [address] * eGFR (04/26/2025 12:14 PM CDT) eGFR 83 >=60 mL/min/1. 73 m2 Comment: Interpretive Data Reference Interval Normal >/= 90 mL/min/1.73m2 Mildly decreased* 60 - 89 mL/min/1.73m2 Mildly to moderately decreased 45 - 59 mL/min/1.73m2 Moderately to severely decreased 30 - 44 mL/min/1.73m2 Severely decreased 15 - 29 mL/min/1.73m2 Kidney Failure < 15 mL/min/1.73m2 *Relative to young adult level Estimated glomerular filtration rate is determined by the 2020 CKD-EPI equation recommended by the National Kidney Foundation (A Unifying Approach to GFR Estimation: Recommendations of the NKF-ASK Task Force on Reassessing the Inclusion of Race in Diagnosing Kidney Disease, JASN 2020). The CKD-EPI equation should not be used for patients with unstable renal function and has not been validated in children and those over 70. Current interpretive data was last reviewed 2021. Blood 04/26/2025 12:1 4 PM CDT 04/26/2025 12:27 PM CDT us Torie Batista MD LAB BLOOD ORDERABLES Ellen lane Result [facility] ([place]) 1 [facility] Department [place] [address] * Differential, auto (04/26/2025 12:14 PM CDT) Neutrophil abs 2.16 1.50 - 6.50 K/cumm Imm gran abs 0.01 0.00 - 0.10 K/cumm [facility] ([place]) Lymphocyte abs 1.46 0.80 - 3.30 K/cumm [facility] ([place]) Monocyte abs 0.57 0.20 - 0.80 K/cumm [facility] ([place]) Eosinophil abs 0.38 0.00 - 0.50 K/cumm [facility] ([place]) Basophil abs 0.05 0.00 - 0.10 K/cumm [facility] ([place]) Neutrophil pct 46.7 % [facility] ([place]) Comment: Interpretive Data Percent cell count reference ranges are not reported, since discordance with absolute values may lead to misinterpretation of CBC data. Current Interpretive Data was last revised on 2018. Imm gran pct 0.2 % [facility] ([place]) Comment: Interpretive Data Percent cell count reference ranges are not reported, since discordance with absolute values may lead to misinterpretation of CBC data. Current Interpretive Data was last revised on 2018. Lymphocyte pct 31.5 % [facility] ([place]) Comment: Interpretive Data Percent cell count reference ranges are not reported, since discordance with absolute values may lead to misinterpretation of CBC data. Current Interpretive Data was last revised on 2018. Monocyte pct 12.3 % [facility] ([place]) Comment: Interpretive Data Percent cell count reference ranges are not reported, since discordance with absolute values may lead to misinterpretation of CBC data. Current Interpretive Data was last revised on 2018. Eosinophil pct 8.2 % [facility] ([place]) Comment: Interpretive Data Percent cell count reference ranges are not reported, since discordance with absolute values may lead to misinterpretation of CBC data. Current Interpretive Data was last revised on 2018. Basophil pct 1.1 % [facility] ([place]) Comment: Interpretive Data Percent cell count reference ranges are not reported, since discordance with absolute values may lead to misinterpretation of CBC data. Current Interpretive Data was last revised on 2018. Blood 04/26/2025 12:1 4 PM CDT 04/26/2025 12:27 PM CDT us Torie Batista MD LAB BLOOD ORDERABLES [place] [address] Result [facility] ([place]) 1 [facility] Department [place] [address] * (ABNORMAL) CBC with auto differential (04/26/2025 12:14 PM CDT) WBC 4.63 3.80 - 9.90 K/cumm Hgb 12.2(L) 13.0 - 17.5 g/dL [facility] ([place]) Hct 36.2(L) 38.9 - 50.3 % [facility] ([place]) Plt 263 150 - 400 K/cumm [facility] ([place]) MPV 9.9 9.1 - 12.3 fL [facility] ([place]) RBC 3.79(L) 4.30 - 5.80 M/cumm [facility] ([place]) MCV 95.5 81.3 - 96.4 fL [facility] ([place]) MCH 32.2 27.1 - 33.3 pg [facility] [facility] ([place]) MCHC 33.7 32.3 - 35.7 g/dL [facility] [facility] ([place]) RDW CV 12.5 11.1 - 14.9 % [facility] [facility] ([place]) RDW SD 43.5 35.7 - 48.1 fL [place] ([place]) NRBC abs 0.00 0.00 - 0.01 K/cumm [facility] [facility] ([place]) Blood 04/26/2025 12:1 4 PM CDT 04/26/2025 12:27 PM CDT Torie Batista MD LAB BLOOD ORDERABLES Ellen l Result Performing Organization Address [facility] Co de Phone Number [place] ([place]) [address] [place] [address] [place] [address] * Protime-INR (04/26/2025 12:14 PM CDT) PT 11.3 9.7 - 13.0 sec [facility] [facility] ([place]) INR 1.05 0.90 - 1.20 [facility] ([place]) Comment: Interpretive data Oral anticoagulant therapeutic ranges: Venous thromboembolism prophylaxis or treatment: 2.0-3.0 CARDIOLOGY Standard range: 2.0-3.0 High-intensity range: 2.5-3.5 Refer to indication-specific guidelines for appropriate target ranges for prosthetic heart valve replacement. Current interpretive data was last revised on 2019. Blood 04/26/2025 12:1 4 PM CDT 04/26/2025 1:17 PM CDT Torie Batista MD LAB BLOOD ORDERABLES Ellen l Result Performing Organization Address City/[facility] Co de Phone Number [place] ([place]) 1 [facility] [place] [employer] [address] * Lipase (04/26/2025 12:14 PM CDT) Lipase 91 10 - 99 Units/L [facility] ([place]) Blood 04/26/2025 12:1 4 PM CDT 04/26/2025 1:18 PM CDT us Torei Batsita MD LAB BLOOD ORDERABLES [address] Result [facility] ([place]) 1 [facility] [place] [address] * Comprehensive metabolic panel (04/26/2025 12:14 PM CDT) Sodium 141 135 - 145 mmol/L [facility] ([place]) Potassium, pl 3.7 3.3 - 4.9 mmol/L [facility] ([place]) Chloride 106 97 - 110 mmol/L [facility] ([place]) CO2 22 22 - 32 mmol/L [facility] ([place]) Anion gap 13 2 - 15 mmol/L [facility] ([place]) BUN 14 6 - 25 mg/dL [facility] ([place]) Creatinine 1.04 0.80 - 1.30 mg/dL [facility] ([place]) Glucose 138 70 - 199 mg/dL [facility] ([place]) Comment: Interpretive Data Fasting glucose >/= 126 mg/dl is diagnostic for diabetes. Fasting is defined as no caloric intake for at least 8 hours. Fasting glucose between 100 mg/dl to 125 mg/dl is diagnostic of prediabetes. In a patient with classic symptoms of hyperglycemia or hyperglycemic crisis, a random glucose >/= 200 mg/dl is diagnostic for diabetes. In the absence of unequivocal hyperglycemia, results should be confirmed by repeat testing. The classification and Diagnosis of Diabetes Diabetes Care 202; 46: S19-S40. Current interpretive data was last revised 2022. Calcium 9.0 8.5 - 10.3 mg/dL [facility] ([place]) Bilirubin, total <0.2 0.1 - 1.2 mg/dL [facility] ([place]) Protein, pl 6.5 6.5 - 8.5 g/dL [facility] ([facility]) Albumin 3.8 3.5 - 5.0 g/dL [facility] ([place]) Alk phos 82 40 - 130 Units/L [facility] ([place]) ALT 20 7 - 55 Units/L [facility] ([place]) AST 24 10 - 50 Units/L [facility] ([place]) Blood 04/26/2025 12:1 4 PM CDT 04/26/2025 12:27 PM CDT Torie Batista MD LAB BLOOD ORDERABLES Ellen l Result Performing Organization Address City/[facility] Co de Phone Number [facility] ([place]) 1 [facility] [place] [address] * ECG 12 lead (04/26/2025 12:08 PM CDT) 04/26/2025 12:0 8 PM CDT Narrative [facility] - 04/26/2025 1:32 PM CDT Vent Rate: 79 bpm RR Interval: 759 msec AL Interval: 125 msec QRS Duration: 102 msec QT Interval: 362 msec QTC Interval: 396 msec P-R-T Ucon: 69 - 16 - 36 degrees IMPRESSION: SINUS RHYTHM WITH OCCASIONAL SUPRAVENTRICULAR PREMATURE COMPLEXES ANTEROSEPTAL MYOCARDIAL INFARCTION , OF INDETERMINATE AGE [40+ ms Q WAVE IN V1- V4] ABNORMAL ECG Prior EKG, heart rate has increased T-wave abnormality is new PACs are new Electronically Signed By: Nicholas Mott MD Torie Batista MD ECG ORDERABLES Final Res ult Performing Organization Address [facility] Co de Phone Number [facility] * (ABNORMAL) CBC without differential (04/22/2025 11:11 AM CDT) WBC 5.78 3.80 - 9.90 K/cumm Hgb 12.9(L) 13.0 - 17.5 g/dL [facility] ([place]) Hct 38.7(L) 38.9 - 50.3 % [facility] ([place]) Plt 267 150 - 400 K/cumm [facility] ([place]) MPV 9.6 9.1 - 12.3 fL [facility] ([place]) RBC 4.01(L) 4.30 - 5.80 M/cumm [facility] ([place]) MCV 96.5(H) 81.3 - 96.4 fL [facility] ([place]) MCH 32.2 27.1 - 33.3 pg [facility] ([place]) MCHC 33.3 32.3 - 35.7 g/dL [facility] ([place]) RDW CV 12.2 11.1 - 14.9 % [facility] ([place]) RDW SD 43.4 35.7 - 48.1 fL [facility] ([place]) NRBC abs 0.00 0.00 - 0.01 K/cumm [facility] ([place]) Blood 04/22/2025 11:1 1 AM CDT 04/22/2025 11:19 AM CDT us Lore Guadarrama MD LAB BLOOD ORDERABLES Final Re sult [facility] ([place]) 1 [facility] Department [place] [address] * eGFR (04/21/2025 9:00 AM CDT) eGFR >90 >=60 mL/min/1. 73 m2 Comment: Interpretive Data Reference Interval Normal >/= 90 mL/min/1.73m2 Mildly decreased* 60 - 89 mL/min/1.73m2 Mildly to moderately decreased 45 - 59 mL/min/1.73m2 Moderately to severely decreased 30 - 44 mL/min/1.73m2 Severely decreased 15 - 29 mL/min/1.73m2 Kidney Failure < 15 mL/min/1.73m2 *Relative to young adult level Estimated glomerular filtration rate is determined by the 2020 CKD-EPI equation recommended by the National Kidney Foundation (A Unifying Approach to GFR Estimation: Recommendations of the NKF-ASK Task Force on Reassessing the Inclusion of Race in Diagnosing Kidney Disease, JASN 2020). The CKD-EPI equation should not be used for patients with unstable renal function and has not been validated in children and those over 70. Current interpretive data was last reviewed 2021. Blood 04/21/2025 9:00 AM CDT 04/21/2025 9:22 AM CDT us Mirella Rodríguez MD LAB BLOOD ORDERABLES nal Result [facility] 1 [facility] Department [place] [address] * (ABNORMAL) Comprehensive metabolic panel (04/21/2025 9:00 AM CDT) Sodium 139 135 - 145 mmol/L Potassium, pl 4.2 3.3 - 4.9 mmol/L [facility] ([place]) Chloride 102 97 - 110 mmol/L [facility] ([place]) CO2 24 22 - 32 mmol/L [facility] ([place]) Anion gap 13 2 - 15 mmol/L [facility] ([place]) BUN 8 6 - 25 mg/dL [facility] ([place]) Creatinine 0.90 0.80 - 1.30 mg/dL [facility] ([place]) Glucose 136 70 - 199 mg/dL [facility] ([place]) Comment: Interpretive Data Fasting glucose >/= 126 mg/dl is diagnostic for diabetes. Fasting is defined as no caloric intake for at least 8 hours. Fasting glucose between 100 mg/dl to 125 mg/dl is diagnostic of prediabetes. In a patient with classic symptoms of hyperglycemia or hyperglycemic crisis, a random glucose >/= 200 mg/dl is diagnostic for diabetes. In the absence of unequivocal hyperglycemia, results should be confirmed by repeat testing. The classification and Diagnosis of Diabetes Diabetes Care 2021; 46: S19-S40. Current interpretive data was last revised 2022. Calcium 8.9 8.5 - 10.3 mg/dL [facility] ([place]) Bilirubin, total 0.3 0.1 - 1.2 mg/dL [facility] ([place]) Protein, pl 6.0(L) 6.5 - 8.5 g/dL [facility] ([place]) Albumin 3.7 3.5 - 5.0 g/dL [facility] ([place]) Alk phos 71 40 - 130 Units/L [facility] ([place]) ALT 13 7 - 55 Units/L [facility] ([place]) AST 18 10 - 50 Units/L [facility] ([place]) Comment: Hemolysis present. Results may be affected. Slightly Hemolyzed Specimen Blood 04/21/2025 9:00 AM CDT 04/21/2025 9:22 AM CDT Narrative [facility] ([place]) - 04/21/2025 9:48 AM CDT patient has a sign on door to draw blood [id number]. RN asked phleb to draw blood at 0700, and not to wake patient at this time. Mirella Rodríguez MD LAB BLOOD ORDERABLES Fi nal Result [facility] ([place]) 1 [facility] [place] [address] * (ABNORMAL) Hemoglobin and hematocrit (04/20/2025 5:49 AM CDT) Hgb 12.9(L) 13.0 - 17.5 g/dL Hct 38.1(L) 38.9 - 50.3 % [facility] ([place]) Blood 04/20/2025 5:49 AM CDT 04/20/2025 5:51 AM CDT Mirella Rodríguez MD LAB BLOOD ORDERABLES Fi nal Result [facility] ([place]) 1 [facility] [place] [address] * eGFR (04/20/2025 12:15 AM CDT) eGFR >90 >=60 mL/min/1. 73 m2 Comment: Interpretive Data Reference Interval Normal >/= 90 mL/min/1.73m2 Mildly decreased* 60 - 89 mL/min/1.73m2 Mildly to moderately decreased 45 - 59 mL/min/1.73m2 Moderately to severely decreased 30 - 44 mL/min/1.73m2 Severely decreased 15 - 29 mL/min/1.73m2 Kidney Failure < 15 mL/min/1.73m2 *Relative to young adult level Estimated glomerular filtration rate is determined by the 2020 CKD-EPI equation recommended by the National Kidney Foundation (A Unifying Approach to GFR Estimation: Recommendations of the NKF-ASK Task Force on Reassessing the Inclusion of Race in Diagnosing Kidney Disease, JASN 2020). The CKD-EPI equation should not be used for patients with unstable renal function and has not been validated in children and those over 70. Current interpretive data was last reviewed 2021. Blood 04/20/2025 12:1 5 AM CDT 04/20/2025 12:57 AM CDT Mirella Rodríguez MD LAB BLOOD ORDERABLES Fi nal Result Performing Organization Address City/[facility] Co de Phone Number [facility] ([place]) [address] [place] [address] [place] [address] * (ABNORMAL) Hemoglobin and hematocrit (04/20/2025 12:15 AM CDT) Hgb 12.6(L) 13.0 - 17.5 g/dL Hct 37.7(L) 38.9 - 50.3 % [facility] ([place]) Blood 04/20/2025 12:1 5 AM CDT 04/20/2025 12:57 AM CDT Mirella Rodríguez MD LAB BLOOD ORDERABLES Fi nal Result [facility] ([place]) [address] [place] [address] [place] [address] * Magnesium (04/20/2025 12:15 AM CDT) Magnesium 2.1 1.4 - 2.5 mg/dL Blood 04/20/2025 12:1 5 AM CDT 04/20/2025 12:57 AM CDT Mirella Rodríguez MD LAB BLOOD ORDERABLES Fi nal Result [facility] ([place]) 1 [facility] Department [place] [address] * (ABNORMAL) Comprehensive metabolic panel (04/20/2025 12:15 AM CDT) Sodium 139 135 - 145 mmol/L Potassium, pl 3.6 3.3 - 4.9 mmol/L [facility] ([place]) Chloride 101 97 - 110 mmol/L [facility] ([place]) CO2 22 22 - 32 mmol/L [facility] ([place]) Anion gap 16(H) 2 - 15 mmol/L [facility] ([place]) BUN 8 6 - 25 mg/dL [facility] ([place]) Creatinine 0.91 0.80 - 1.30 mg/dL [facility] ([place]) Glucose 119 70 - 199 mg/dL [facility] ([place]) Comment: Interpretive Data Fasting glucose >/= 126 mg/dl is diagnostic for diabetes. Fasting is defined as no caloric intake for at least 8 hours. Fasting glucose between 100 mg/dl to 125 mg/dl is diagnostic of prediabetes. In a patient with classic symptoms of hyperglycemia or hyperglycemic crisis, a random glucose >/= 200 mg/dl is diagnostic for diabetes. In the absence of unequivocal hyperglycemia, results should be confirmed by repeat testing. The classification and Diagnosis of Diabetes Diabetes Care 2021; 46: S19-S40. Current interpretive data was last revised 2022. Calcium 8.9 8.5 - 10.3 mg/dL [facility] ([place]) Bilirubin, total 0.4 0.1 - 1.2 mg/dL [facility] ([place]) Protein, pl 5.7(L) 6.5 - 8.5 g/dL [facility] ([place]) Albumin 3.7 3.5 - 5.0 g/dL [facility] ([place]) Alk phos 69 40 - 130 Units/L [facility] ([place]) ALT 11 7 - 55 Units/L [facility] ([place]) AST 14 10 - 50 Units/L [facility] ([place]) Blood 04/20/2025 12:1 5 AM CDT 04/20/2025 12:57 AM CDT Mirella Rodríguez MD LAB BLOOD ORDERABLES Fi nal Result [facility]) 1 [facility] [employer] [place] [address] * Hemoglobin and hematocrit (04/19/2025 5:38 PM CDT) Hgb 13.8 13.0 - 17.5 g/dL Hct 41.4 38.9 - 50.3 % [facility] ([place]) Blood 04/19/2025 5:38 PM CDT 04/19/2025 6:00 PM CDT Mirella Rodríguez MD LAB BLOOD ORDERABLES Fi nal Result Performing Organization Address [facility] Co de Phone Number [facility] ([place]) 1 [facility] [employer] [place] [address] * Hemoglobin and hematocrit (04/19/2025 11:35 AM CDT) Pathologist [facility] Hgb 13.1 13.0 - 17.5 g/dL Hct 39.9 38.9 - 50.3 % [facility] ([place]) Blood 04/19/2025 11:3 5 AM CDT 04/19/2025 12:01 PM CDT Mirella Rodríguez MD LAB BLOOD ORDERABLES Fi nal Result [facility] ([place]) 1 [facility] [employer] [place] [place] [address] * eGFR (04/19/2025 6:43 AM CDT) Pathologist [facility] eGFR >90 >=60 mL/min/1. 73 m2 Comment: Interpretive Data Reference Interval Normal >/= 90 mL/min/1.73m2 Mildly decreased* 60 - 89 mL/min/1.73m2 Mildly to moderately decreased 45 - 59 mL/min/1.73m2 Moderately to severely decreased 30 - 44 mL/min/1.73m2 Severely decreased 15 - 29 mL/min/1.73m2 Kidney Failure < 15 mL/min/1.73m2 *Relative to young adult level Estimated glomerular filtration rate is determined by the 2020 CKD-EPI equation recommended by the National Kidney Foundation (A Unifying Approach to GFR Estimation: Recommendations of the NKF-ASK Task Force on Reassessing the Inclusion of Race in Diagnosing Kidney Disease, JASN 2020). The CKD-EPI equation should not be used for patients with unstable renal function and has not been validated in children and those over 70. Current interpretive data was last reviewed 2021. Blood 04/19/2025 6:43 AM CDT 04/19/2025 9:18 AM CDT us Mirella Rodríguez MD LAB BLOOD ORDERABLES Fi nal Result [facility] ([place]) 1 [facility] Department [place] [address] * (ABNORMAL) Differential, auto (04/19/2025 6:43 AM CDT) Neutrophil abs 5.81 1.50 - 6.50 K/cumm Imm gran abs 0.02 0.00 - 0.10 K/cumm [facility] ([place]) Lymphocyte abs 0.45(L) 0.80 - 3.30 K/cumm [facility] ([place]) Monocyte abs 0.22 0.20 - 0.80 K/cumm [facility] ([place]) Eosinophil abs 0.00 0.00 - 0.50 K/cumm [facility] ([place]) Basophil abs 0.01 0.00 - 0.10 K/cumm [facility] ([place]) Neutrophil pct 89.2 % [facility] ([place]) Comment: Interpretive Data Percent cell count reference ranges are not reported, since discordance with absolute values may lead to misinterpretation of CBC data. Current Interpretive Data was last revised on 2018. Imm gran pct 0.3 % [facility] ([place]) Comment: Interpretive Data Percent cell count reference ranges are not reported, since discordance with absolute values may lead to misinterpretation of CBC data. Current Interpretive Data was last revised on 2018. Lymphocyte pct 6.9 % [facility] ([place]) Comment: Interpretive Data Percent cell count reference ranges are not reported, since discordance with absolute values may lead to misinterpretation of CBC data. Current Interpretive Data was last revised on 2018. Monocyte pct 3.4 % [facility] ([place]) Comment: Interpretive Data Percent cell count reference ranges are not reported, since discordance with absolute values may lead to misinterpretation of CBC data. Current Interpretive Data was last revised on 2018. Eosinophil pct 0.0 % [facility] ([place]) Comment: Interpretive Data Percent cell count reference ranges are not reported, since discordance with absolute values may lead to misinterpretation of CBC data. Current Interpretive Data was last revised on 2018. Basophil pct 0.2 % [facility] ([place]) Comment: Interpretive Data Percent cell count reference ranges are not reported, since discordance with absolute values may lead to misinterpretation of CBC data. Current Interpretive Data was last revised on 2018. Blood 04/19/2025 6:43 AM CDT 04/19/2025 9:18 AM CDT us Herman WHEATLEY LAB BLOOD ORDERABLES Final R esult [facility] ([place]) 1 [facility] Department [place] [address] * (ABNORMAL) CBC with auto differential (04/19/2025 6:43 AM CDT) WBC 6.51 3.80 - 9.90 K/cumm Hgb 12.7(L) 13.0 - 17.5 g/dL [facility] ([place]) Hct 38.1(L) 38.9 - 50.3 % [facility] ([place]) Plt 299 150 - 400 K/cumm [facility] ([place]) MPV 9.9 9.1 - 12.3 fL [facility] ([place]) RBC 3.97(L) 4.30 - 5.80 M/cumm [facility] ([place]) MCV 96.0 81.3 - 96.4 fL [facility] ([place]) MCH 32.0 27.1 - 33.3 pg [facility] ([place]) MCHC 33.3 32.3 - 35.7 g/dL [facility] ([place]) RDW CV 12.8 11.1 - 14.9 % [facility] ([place]) RDW SD 45.2 35.7 - 48.1 fL [facility] ([place]) NRBC abs 0.00 0.00 - 0.01 K/cumm [facility] ([place]) Blood 04/19/2025 6:43 AM CDT 04/19/2025 9:18 AM CDT Herman WHEATLEY LAB BLOOD ORDERABLES Final R esult Performing Organization Address City/[facility]/ZIP Co de Phone Number [facility] ([place]) 1 [facility] [employer] [place] [address] * Magnesium (04/19/2025 6:43 AM CDT) Pathologist [facility] Magnesium 1.8 1.4 - 2.5 mg/dL Blood 04/19/2025 6:43 AM CDT 04/19/2025 9:18 AM CDT Mirella Rodríguez MD LAB BLOOD ORDERABLES Fi nal Result Performing Organization Address City/[facility] Co de Phone Number [facility] ([place]) 1 [facility] [employer] [place] [address] * (ABNORMAL) Comprehensive metabolic panel (04/19/2025 6:43 AM CDT) Sodium 139 135 - 145 mmol/L Potassium, pl 3.9 3.3 - 4.9 mmol/L [facility] ([place]) Chloride 102 97 - 110 mmol/L [facility] ([place]) CO2 24 22 - 32 mmol/L [facility] ([place]) Anion gap 13 2 - 15 mmol/L [facility] ([place]) BUN 5(L) 6 - 25 mg/dL [facility] ([place]) Creatinine 0.86 0.80 - 1.30 mg/dL [facility] ([place]) Glucose 120 70 - 199 mg/dL [facility] ([place]) Comment: Interpretive Data Fasting glucose >/= 126 mg/dl is diagnostic for diabetes. Fasting is defined as no caloric intake for at least 8 hours. Fasting glucose between 100 mg/dl to 125 mg/dl is diagnostic of prediabetes. In a patient with classic symptoms of hyperglycemia or hyperglycemic crisis, a random glucose >/= 200 mg/dl is diagnostic for diabetes. In the absence of unequivocal hyperglycemia, results should be confirmed by repeat testing. The classification and Diagnosis of Diabetes Diabetes Care 202; 46: S19-S40. Current interpretive data was last revised 2022. Calcium 9.0 8.5 - 10.3 mg/dL [facility] ([place]) Bilirubin, total 0.3 0.1 - 1.2 mg/dL [facility] ([place]) Protein, pl 6.8 6.5 - 8.5 g/dL [facility] ([place]) Albumin 4.2 3.5 - 5.0 g/dL [facility] ([place]) Alk phos 84 40 - 130 Units/L [facility] ([place]) ALT 13 7 - 55 Units/L [facility] ([place]) AST 17 10 - 50 Units/L [facility] ([place]) Blood 04/19/2025 6:43 AM CDT 04/19/2025 9:18 AM CDT us Mirella Rodríguez MD LAB BLOOD ORDERABLES Fi nal Result [facility] ([place]) 1 [facility] Department of Laboratories [place], [place] [id number] * (ABNORMAL) Urinalysis reflex to microscopic and culture Urine (04/18/2025 8:51 PM CDT) Color, ur Straw Yellow Clarity, ur Clear Clear [facility] ([place]) Specific gravity, ur 1.036(H) 1.003 - 1.030 [facility] ([place]) pH, urine 7.0 [facility] ([place]) Comment: Interpretive Data U rine pH is affected by diet, medications, systemic acid-base disturbances, and renal tubular function. pH may affect urinary stone formation. For example, urine pH below 6.0 may help reduce the tendency for calcium phosphate stones and pH greater than 6.0 may reduce the tendency for uric acid stone formation. Source: [facility] Current Interpretive Data was last revised on 2017 Protein, ur ql Negative Negative [facility] ([place]) Glucose, ur ql Negative Negative [facility] ([place]) Ketones, ur Negative Negative [facility] ([place]) Bilirubin, ur Negative Negative [facility] ([place]) Blood, ur Negative Negative [facility] ([place]) Urobilinogen, ur <2.0 <2.0 mg/dL [facility] ([place]) Nitrite, ur Negative Negative [facility] ([place]) Leukocyte esterase, ur Negative Negative [facility] ([place]) UA reflex comment Reflex conditions for microscopic UA and culture not met. [facility] ([place]) Urine 04/18/2025 8:51 PM CDT 04/18/2025 8:55 PM CDT Herman WHEATLEY LAB MICROBIOLOGY - GENERAL O RDERABLES Final Result [facility] ([place]) 1 [facility] Department [place] [address] * (ABNORMAL) Drugs of Abuse Screen, Urine without Confirmation (04/18/2025 8:51 PM CDT) Amphetamine, ur Not Detected CutOff 500ng/mL Comment: Interpretive Data - Amphetamines: Samples containing greater than 500 ng/mL d-methamphetamine or other cross-reacting amphetamine compounds are reported as positive. Amphetamine immunoassays are subject to significant false positive rates due to cross-reactivity of non-amphetamine drugs. Confirmatory testing required for definitive results. Current Interpretive Data was last reviewed 2023. Barbiturates, ur Not Detected CutOff 200ng/mL [facility] ([place]) Comment: Interpretive Data - Barbiturates: Samples containing greater than 200 ng/mL secobarbital or other cross-reacting barbiturate compounds are reported as positive. False positive and false negative results are possible. Confirmatory testing required for definitive results. Current Interpretive Data was last reviewed 2023. Benzodiazepines, ur Not Detected CutOff 100ng/mL [facility] ([place]) Comment: Interpretive Data - Benzodiazepines: Samples containing greater than 100 ng/mL nordiazepam or other cross-reacting compounds are reported as positive. False positive and false negative results are possible. Confirmatory testing required for definitive results. Current Interpretive Data was last reviewed 2023. Cannabinoids, ur Screen Positive, presumptive (A) CutOff 50 ng/mL [facility] ([place]) Comment: Interpretive Data - Cannabinoids: Samples containing greater than 50 ng/mL delta-9 THC -COOH or other cross- reacting compounds are reported as positive. False positive and false negative results are possible. Confirmatory testing required for definitive results. Current Interpretive Data was last reviewed 2023. Cocaine, ur Screen Positive, presumptive (A) CutOff 150ng/mL [facility] ([place]) Comment: Interpretive Data - Cocaine: Samples containing greater than 150 ng/mL benzoylecgonine or other cross- reacting compounds are reported as positive. False positive and false negative results are possible. Confirmatory testing required for definitive results. Current Interpretive Data was last reviewed 2023. Fentanyl, Ur Not Detected CutOff 5 ng/mL [facility] ([place]) Comment: Interpretive Data - Fentanyl: Samples containing greater than 5 ng/mL norfentanyl, fentanyl, or other cross-reacting fentanyl compounds are reported as positive. False positive and false negative results are possible. Confirmatory testing required for definitive results. Current Interpretive Data was last reviewed 2023. Methadone, ur Not Detected CutOff 300ng/mL [facility] ([place]) Comment: Interpretive Data - Methadone: Samples containing greater than 300 ng/mL d,l-methadone or other cross-reacting compounds are reported as positive. False positive and false negative results are possible. Confirmatory testing required for definitive results. Current Interpretive Data was last reviewed 2023. Opiates, ur Not Detected CutOff 300ng/mL [facility] ([place]) Comment: Interpretive Data - Opiates: Samples containing greater than 300 ng/mL morphine or other cross-reacting compounds are reported as positive. False positive and false negative results are possible. Confirmatory testing required for definitive results. Current Interpretive Data was last reviewed 2023. Oxycodone, ur Not Detected CutOff 100ng/mL [facility] ([place]) Comment: Interpretive Data - Oxycodone: Samples containing greater than 100 ng/mL oxycodone or other cross-reacting compounds are reported as positive. False positive and false negative results are possible. Confirmatory testing required for definitive results. Current Interpretive Data was last reviewed 2023. Phencyclidine, ur Not Detected CutOff 25 ng/mL [facility] ([place]) Comment: Interpretive Data - Phencyclidine: Samples containing greater than 25 ng/mL phencyclidine or other cross-reacting compounds are reported as positive. False positive and false negative results are possible. Confirmatory testing required for definitive results. Current Interpretive Data was last reviewed 2023. Urine Creatinine 57 mg/dL [facility] ([place]) Comment: Interpretive Data Urine Creatinine: < 10 mg/dL is extremely dilute = or > 10 but < 20 mg/dL is dilute = or > 20 mg/dL is normal Current Interpretive Data was last revised on 2017. Urine 04/18/2025 8:51 PM CDT 04/18/2025 8:55 PM CDT Narrative [facility] ([place]) - 04/18/2025 9:24 PM CDT Drug of Abuse screening is performed by immunoassay for medical purposes only. This is not to be used for Pain Management purposes. Herman WHEATLEY LAB URINE ORDERABLES Final R esult [facility] ([place]) 1 [facility] Department of Laboratories [place], [place] [id number] * CT Abdomen Pelvis W Contrast (04/18/2025 7:20 PM CDT) Anatomical Region Laterality Modality Body N/A Computed Tomogra phy 04/18/2025 7:38 PM CDT Narrative 04/18/2025 7:42 PM CDT EXAM DESCRIPTION: CT ABDOMEN PELVIS W CONTRAST REASON FOR STUDY: Epigastric pain. Intractable nausea and vomiting Patient complains of abdominal discomfort and nausea onset this morning. TECHNIQUE: CT scan of the abdomen and pelvis performed with intravenous and without oral contrast using helical scanning technique with dynamic intravenous contrast injection. Reconstructed coronal and sagittal MPR images reviewed. All images stored on PACS. Automated exposure control was used as a dose optimization technique for this examination. CONTRAST TYPE/DOSE: 75mL of IOVERSOL 350 MG IODINE/ML INTRAVENOUS SYRINGE injected via intravenous COMPARISON: 03/26/2025 FINDINGS: LOWER CHEST: No significant pulmonary abnormalities. No effusion. There are fibrotic and/or atelectatic changes along the medial aspect of the lower lobes bilaterally. LIVER: Normal size. No identified cystic or solid masses. GALLBLADDER: No stones identified. No wall thickening or inflammatory changes. BILE DUCTS: No intrahepatic or extrahepatic ductal dilatation. SPLEEN: Normal size. No focal lesions. PANCREAS: No identified cystic or solid masses. No significant calcifications. No adjacent inflammation or peripancreatic fluid collections. Pancreatic duct not dilated. ADRENALS: Normal. KIDNEYS/URINARY TRACT: No identified significant cystic or solid masses. No visualized stones. No hydronephrosis or hydroureter. Symmetric enhancement. Urinary bladder is unremarkable. GI: No dilated bowel loops. No obvious wall thickening. Normal appendix. No significant diverticular disease. PERITONEUM: Trace free fluid within the pelvis. No evidence of free air. RETROPERITONEUM: No mass or adenopathy. REPRODUCTIVE: No significant abnormality. VASCULATURE: No abdominal aortic aneurysm. MUSCULOSKELETAL: No significant abnormality. OTHER: No other abnormality. IMPRESSION: No acute finding. THIS IS AN ELECTRONICALLY VERIFIED FINAL REPORT 04/18/2025 7:42 PM - Electronically signed by Adam Wong M.D. KT: ЮЛИЯ Report ID: [id number] Reading Location: [id number] Procedure Note Adam Wong MD - 04/18/2025 EXAM DESCRIPTION: CT ABDOMEN PELVIS W CONTRAST REASON FOR STUDY: Epigastric pain. Intractable nausea and vomiting Patient complains of abdominal discomfort and nausea onset this morning. TECHNIQUE: CT scan of the abdomen and pelvis performed with intravenousand without oral contrast using helical scanning technique with dynamic intravenous contrast injection. Reconstructed coronal and sagittal MPRimages reviewed. All images stored on PACS. Automated exposure control was usedas a dose optimization technique for this examination. CONTRAST TYPE/DOSE: 75mL of IOVERSOL 350 MG IODINE/ML INTRAVENOUSSYRINGE injected via intravenous COMPARISON: 03/26/2025 FINDINGS: LOWER CHEST: No significant pulmonary abnormalities. No effusion.There are fibrotic and/or atelectatic changes along the medial aspect of thelower lobes bilaterally. LIVER: Normal size. No identified cystic or solid masses. GALLBLADDER: No stones identified. No wall thickening or inflammatory changes. BILE DUCTS: No intrahepatic or extrahepatic ductal dilatation. SPLEEN: Normal size. No focal lesions. PANCREAS: No identified cystic or solid masses. No significant calcifications. No adjacent inflammation or peripancreatic fluidcollections. Pancreatic duct not dilated. ADRENALS: Normal. KIDNEYS/URINARY TRACT: No identified significant cystic or solid masses.No visualized stones. No hydronephrosis or hydroureter. Symmetricenhancement. Urinary bladder is unremarkable. GI: No dilated bowel loops. No obvious wall thickening. Normalappendix. No significant diverticular disease. PERITONEUM: Trace free fluid within the pelvis. No evidence of freeair. RETROPERITONEUM: No mass or adenopathy. REPRODUCTIVE: No significant abnormality. VASCULATURE: No abdominal aortic aneurysm. MUSCULOSKELETAL: No significant abnormality. OTHER: No other abnormality. IMPRESSION: No acute finding. THIS IS AN ELECTRONICALLY VERIFIED FINAL REPORT 04/18/2025 7:42 PM - Electronically signed by Adam Wong M.D. KT: KT Report ID: [id number] Reading Location: [place] [address] PROCEDURES Final Resu lt * Troponin T high-sensitivity 6-hour (04/18/2025 7:03 PM CDT) Trop T hs 9 <=22 ng/L Comment: Interpretive Data For further hscTnT resources including the diagnostic algorithm and an aid in interpretation, copy and paste this link: https://nrl.testcatalog.org/show/hsTrop Current Interpretive Data last revised 2020. Trop T hs delta -1 ng/L [facility] ([facility]) Trop T hs interp Insignificant [facility] ([place]) Blood 04/18/2025 7:03 PM CDT 04/18/2025 7:05 PM CDT Marvin Laws MD LAB BLOOD ORDERABLES Final R esult [facility] ([place]) 1 [facility] [place] [employer] [place] [address] * Ethanol (04/18/2025 7:03 PM CDT) Ethanol <10 <=10 mg/dL Comment: Interpretive Data Legal limit of intoxication > or = 80 mg/dL Levels > or = 400 mg/dL are potentially TOXIC. Current interpretive data was last revised on 2018. Blood 04/18/2025 7:03 PM CDT 04/18/2025 7:05 PM CDT Herman WHEATLEY LAB BLOOD ORDERABLES Final R esult [facility] ([place]) [address] [place] [address] of [employer] [place] [place] [address] * Troponin T high-sensitivity 4-hour (04/18/2025 4:11 PM CDT) Trop T hs 12 <=22 ng/L Comment: Interpretive Data For further hscTnT resources including the diagnostic algorithm and an aid in interpretation, copy and paste this link: https://nrl.testcatalog.org/show/hsTrop Current Interpretive Data last revised 2020. Trop T hs delta 2 ng/L [facility]) Trop T hs interp Insignificant [facility] ([place]) Blood 04/18/2025 4:11 PM CDT 04/18/2025 4:14 PM CDT Marvin Laws MD LAB BLOOD ORDERABLES Final R esult [facility] 1 [facility] Department [place] [address] * XR Chest 1 Vw Portable (If patient hemodynamically UNstable or UNable to ambulate) (04/18/2025 12:31 PM CDT) Anatomical Region Laterality Modality Body, Chest N/A Computed Radiogr aphy 04/18/2025 12:4 7 PM CDT Narrative 04/18/2025 12:53 PM CDT EXAM DESCRIPTION: XR CHEST 1 VIEW REASON FOR STUDY: chest pain Cp for over 1 hr TECHNIQUE: Single frontal radiographic view(s) of the chest. COMPARISON: 03/22/2025 FINDINGS: The heart, mediastinum, and pulmonary vasculature are grossly unremarkable. There is no definite evidence of a pneumothorax. There is no definite evidence of focal consolidation or pleural effusion. There are degenerative changes of the spine. IMPRESSION: 1. No acute cardiopulmonary abnormality. THIS IS AN ELECTRONICALLY VERIFIED FINAL REPORT 04/18/2025 12:53 PM - Electronically signed by Jewels Becerra D.O. PS: PS Report ID: [id number] Reading Location: [place] [address] Procedure Note Jewels Becerra, - 04/18/2025 EXAM DESCRIPTION: XR CHEST 1 VIEW REASON FOR STUDY: chest pain Cp for over 1 hr TECHNIQUE: Single frontal radiographic view(s) of the chest. COMPARISON: 03/22/2025 FINDINGS: The heart, mediastinum, and pulmonary vasculature are grosslyunremarkable. There is no definite evidence of a pneumothorax. There is no definite evidence of focal consolidation or pleural effusion. There are degenerative changes of the spine. IMPRESSION: 1. No acute cardiopulmonary abnormality. THIS IS AN ELECTRONICALLY VERIFIED FINAL REPORT 04/18/2025 12:53 PM - Electronically signed by Jewels Becerra D.O. PS: PS Report ID: [id number] Reading Location: [id number] Mirella Rodríguez MD IMG XR PROCEDURES Final Result * Troponin T high-sensitivity series (baseline, 2hr, 4hr, 6hr) (04/18/2025 12:17 PM CDT) Trop T hs 10 <=22 ng/L Comment: Interpretive Data For further hscTnT resources including the diagnostic algorithm and an aid in interpretation, copy and paste this link: https://nrl.testcatalog.org/show/hsTrop Current Interpretive Data last revised 2020. Blood 04/18/2025 12:1 7 PM CDT 04/18/2025 12:20 PM CDT us Mirella Rodríguez MD LAB BLOOD ORDERABLES Fi nal Result [facility] [address] Department [place] [address] * eGFR (04/18/2025 12:17 PM CDT) eGFR 85 >=60 mL/min/1. 73 m2 Comment: Interpretive Data Reference Interval Normal >/= 90 mL/min/1.73m2 Mildly decreased* 60 - 89 mL/min/1.73m2 Mildly to moderately decreased 45 - 59 mL/min/1.73m2 Moderately to severely decreased 30 - 44 mL/min/1.73m2 Severely decreased 15 - 29 mL/min/1.73m2 Kidney Failure < 15 mL/min/1.73m2 *Relative to young adult level Estimated glomerular filtration rate is determined by the 2020 CKD-EPI equation recommended by the National Kidney Foundation (A Unifying Approach to GFR Estimation: Recommendations of the NKF-ASK Task Force on Reassessing the Inclusion of Race in Diagnosing Kidney Disease, JASN 2020). The CKD-EPI equation should not be used for patients with unstable renal function and has not been validated in children and those over 70. Current interpretive data was last reviewed 2021. Blood 04/18/2025 12:1 7 PM CDT 04/18/2025 12:20 PM CDT us Mirella Rodríguez MD LAB BLOOD ORDERABLES Fi nal Result [facility] ([place]) 1 [facility] Department [place] [address] * Differential, auto (04/18/2025 12:17 PM CDT) Neutrophil abs 1.62 1.50 - 6.50 K/cumm Imm gran abs 0.01 0.00 - 0.10 K/cumm [facility] ([place]) Lymphocyte abs 1.40 0.80 - 3.30 K/cumm [facility] ([place]) Monocyte abs 0.44 0.20 - 0.80 K/cumm [facility] ([place]) Eosinophil abs 0.31 0.00 - 0.50 K/cumm [facility] ([place]) Basophil abs 0.03 0.00 - 0.10 K/cumm [facility] ([place]) Neutrophil pct 42.6 % [facility] ([place]) Comment: Interpretive Data Percent cell count reference ranges are not reported, since discordance with absolute values may lead to misinterpretation of CBC data. Current Interpretive Data was last revised on 2018. Imm gran pct 0.3 % [facility] ([place]) Comment: Interpretive Data Percent cell count reference ranges are not reported, since discordance with absolute values may lead to misinterpretation of CBC data. Current Interpretive Data was last revised on 2018. Lymphocyte pct 36.7 % [facility] ([place]) Comment: Interpretive Data Percent cell count reference ranges are not reported, since discordance with absolute values may lead to misinterpretation of CBC data. Current Interpretive Data was last revised on 2018. Monocyte pct 11.5 % [facility] ([place]) Comment: Interpretive Data Percent cell count reference ranges are not reported, since discordance with absolute values may lead to misinterpretation of CBC data. Current Interpretive Data was last revised on 2018. Eosinophil pct 8.1 % [facility] ([place]) Comment: Interpretive Data Percent cell count reference ranges are not reported, since discordance with absolute values may lead to misinterpretation of CBC data. Current Interpretive Data was last revised on 2018. Basophil pct 0.8 % [facility] ([place]) Comment: Interpretive Data Percent cell count reference ranges are not reported, since discordance with absolute values may lead to misinterpretation of CBC data. Current Interpretive Data was last revised on 2018. Blood 04/18/2025 12:1 7 PM CDT 04/18/2025 12:20 PM CDT us Mirella Rodríguez MD LAB BLOOD ORDERABLES Fi nal Result [facility] ([place]) 1 [facility] Department [place] [address] * (ABNORMAL) CBC with auto differential (04/18/2025 12:17 PM CDT) WBC 3.81 3.80 - 9.90 K/cumm Hgb 12.8(L) 13.0 - 17.5 g/dL [facility] ([place]) Hct 38.6(L) 38.9 - 50.3 % [facility] ([place]) Plt 303 150 - 400 K/cumm [facility] ([place]) MPV 9.3 9.1 - 12.3 fL [facility] ([place]) RBC 3.97(L) 4.30 - 5.80 M/cumm [facility] ([place]) MCV 97.2(H) 81.3 - 96.4 fL [facility] ([place]) MCH 32.2 27.1 - 33.3 pg [facility] ([place]) MCHC 33.2 32.3 - 35.7 g/dL [facility] ([place]) RDW CV 12.9 11.1 - 14.9 % [facility]) RDW SD 45.9 35.7 - 48.1 fL [facility] ([place]) NRBC abs 0.00 0.00 - 0.01 K/cumm [facility] ([place]) Blood Venous blood specimen / Unknown 04/18/2025 12:17 PM CDT 04/18/2025 12:20 PM CDT Mirella Rodríguez MD LAB BLOOD ORDERABLES Fi nal Result Performing Organization Address City/[facility]/ZIP Co de Phone Number [facility] ([place]) 1 [facility] [place] [address] * Lipase (04/18/2025 12:17 PM CDT) Lipase 43 10 - 99 Units/L Blood 04/18/2025 12:1 7 PM CDT 04/18/2025 3:40 PM CDT Herman WHEATLEY LAB BLOOD ORDERABLES Final R esult Performing Organization Address City/[facility] Co de Phone Number [facility] ([place]) 1 [facility] [employer] [place] [address] * Comprehensive metabolic panel (04/18/2025 12:17 PM CDT) Sodium 139 135 - 145 mmol/L Potassium, pl 4.2 3.3 - 4.9 mmol/L [facility] ([place]) Chloride 104 97 - 110 mmol/L [facility] ([place]) CO2 22 22 - 32 mmol/L [facility] ([place]) Anion gap 13 2 - 15 mmol/L [facility] ([place]) BUN 9 6 - 25 mg/dL [facility] ([place]) Creatinine 1.02 0.80 - 1.30 mg/dL [facility] ([place]) Glucose 130 70 - 199 mg/dL [facility] ([place]) Comment: Interpretive Data Fasting glucose >/= 126 mg/dl is diagnostic for diabetes. Fasting is defined as no caloric intake for at least 8 hours. Fasting glucose between 100 mg/dl to 125 mg/dl is diagnostic of prediabetes. In a patient with classic symptoms of hyperglycemia or hyperglycemic crisis, a random glucose >/= 200 mg/dl is diagnostic for diabetes. In the absence of unequivocal hyperglycemia, results should be confirmed by repeat testing. The classification and Diagnosis of Diabetes Diabetes Care 2021; 46: S19-S40. Current interpretive data was last revised 2022. Calcium 9.0 8.5 - 10.3 mg/dL [facility] ([place]) Bilirubin, total 0.2 0.1 - 1.2 mg/dL [facility] ([place]) Protein, pl 6.5 6.5 - 8.5 g/dL [facility] ([place]) Albumin 3.9 3.5 - 5.0 g/dL [facility] ([place]) Alk phos 84 40 - 130 Units/L [facility] ([place]) ALT 13 7 - 55 Units/L [facility] ([place]) AST 16 10 - 50 Units/L [facility] ([place]) Blood 04/18/2025 12:1 7 PM CDT 04/18/2025 12:20 PM CDT Mirella Rodríguez MD LAB BLOOD ORDERABLES Fi nal Result Performing Organization Address [facility] de Phone Number [facility] ([place]) 1 [facility] Department of Laboratories [place] [phone] * ECG 12 lead (04/18/2025 12:11 PM CDT) 04/18/2025 12:1 1 PM CDT Narrative [facility] - 04/19/2025 12:29 PM CDT Vent Rate: 52 bpm RR Interval: 1149 msec AL Interval: 120 msec QRS Duration: 97 msec QT Interval: 391 msec QTC Interval: 370 msec P-R-T Ucon: 63 - 34 - 59 degrees IMPRESSION: SINUS BRADYCARDIA POSSIBLE RIGHT VENTRICULAR CONDUCTION DELAY [RSR (QR) IN V1/V2] ANTEROSEPTAL MYOCARDIAL INFARCTION , OF INDETERMINATE AGE [40+ ms Q WAVE IN V1- V4] ABNORMAL ECG Compared to prior EKG, heart rate has decreased Anterolateral T-wave inversions are no longer present Electronically Signed By: Nicholas Mott MD Mirella Rodríguez MD ECG ORDERABLES Final R esult [facility] * MCT Mobile Cardiac Telemetry Event Monitor (03/29/2025 11:56 AM CDT) Anatomical Region Laterality Modality Electrocardiogra phy 04/27/2025 11:5 9 PM CDT Narrative 04/30/2025 10:32 AM CDT [address] [place] [address] EVENT MONITOR Patient Name: AMADOU NIEVES : 1965 Study Date: 04/27/2025 11:59:00 PM Gender: M Tech: Ref Provider: ELY BABIN Height(Cm): BSA: Weight(Kg): Order Provider: ELY BABIN PROCEDURES: Event Report: Event Monitor Report. INDICATIONS: I48.0 Paroxysmal atrial fibrillation. FINDINGS: CONCLUSIONS: 1. Predominant rhythm is normal sinus rhythm with a minimum heart rate of 54 beats per minute in sinus and a maximum heart rate of 153 beats per minute also in sinus. Average heart rate of 100 beats per minute. Heart rate was controlled 57% of the time, slow 3% of the time and fast 40% of the time. Total monitoring time of 1 day 5 hours 42 minutes. 2. Heart rate and rate variability is appropriate. 3. No prolonged pauses. 4. Occasional PACs with 1,659 PACs corresponding to 1% of total beats. 5. Rare PVCs with 206 PVCs amounting to less than 1% of total beats. 6. There was only 1 patient activated event with no symptom and it was in sinus tachycardia at 107 beats per minute with rare isolated PACs. 7. There was only 1 auto triggered event and it was in sinus tachycardia at 106 beats per minute with no significant findings. Electronically Signed By: Dr Ely Babin 04/30/2025 10:32:03 AM CDT Procedure Note Ely Babin MD - 04/30/[address] [place] [address] EVENT MONITOR Patient Name: AMADOU NIEVES : 1965 Study Date: 04/27/2025 11:59:00 PM Gender: M Tech: Ref Provider: ELY BABIN Height(Cm): BSA: Weight(Kg): Order Provider: ELY BABIN PROCEDURES: Event Report: Event Monitor Report. INDICATIONS: I48.0 Paroxysmal atrial fibrillation. FINDINGS: CONCLUSIONS: 1. Predominant rhythm is normal sinus rhythm with a minimum heart rate of54 beats per minute in sinus and a maximum heart rate of 153 beats per minute also insinus. Average heart rate of 100 beats per minute. Heart rate was controlled 57% of the time, slow 3% of the time and fast40% of the time. Total monitoring time of 1 day 5 hours 42 minutes. 2. Heart rate and rate variability is appropriate. 3. No prolonged pauses. 4. Occasional PACs with 1,659 PACs corresponding to 1% of total beats. 5. Rare PVCs with 206 PVCs amounting to less than 1% of total beats. 6. There was only 1 patient activated event with no symptom and it was insinus tachycardia at 107 beats per minute with rare isolated PACs. 7. There was only 1 auto triggered event and it was in sinus tachycardiaat 106 beats per minute with no significant findings. Electronically Signed By: Dr Ely Babin 04/30/2025 10:32:03 AM CDT Ely Babin MD [facility] PROCEDURE S Final Result * eGFR (03/29/2025 4:03 AM CDT) eGFR >90 >=60 mL/min/1. 73 m2 Comment: Interpretive Data Reference Interval Normal >/= 90 mL/min/1.73m2 Mildly decreased* 60 - 89 mL/min/1.73m2 Mildly to moderately decreased 45 - 59 mL/min/1.73m2 Moderately to severely decreased 30 - 44 mL/min/1.73m2 Severely decreased 15 - 29 mL/min/1.73m2 Kidney Failure < 15 mL/min/1.73m2 *Relative to young adult level Estimated glomerular filtration rate is determined by the 2020 CKD-EPI equation recommended by the National Kidney Foundation (A Unifying Approach to GFR Estimation: Recommendations of the NKF-ASK Task Force on Reassessing the Inclusion of Race in Diagnosing Kidney Disease, JASN 2020). The CKD-EPI equation should not be used for patients with unstable renal function and has not been validated in children and those over 70. Current interpretive data was last reviewed 2021. Blood 03/29/2025 4:03 AM CDT 03/29/2025 5:11 AM CDT us Juliana Peterson MD LAB BLOOD ORDERABLES [address] Result [facility] ([place] 1 [facility] Department [place] [address] * (ABNORMAL) CBC without differential (03/29/2025 4:03 AM CDT) WBC 4.77 3.80 - 9.90 K/cumm Hgb 13.0 13.0 - 17.5 g/dL [facility] ([place]) Hct 39.1 38.9 - 50.3 % [facility] ([place]) Plt 260 150 - 400 K/cumm [facility] MPV 10.3 9.1 - 12.3 fL [facility] ([place]) RBC 4.09(L) 4.30 - 5.80 M/cumm [facility]) MCV 95.6 81.3 - 96.4 fL [facility] ([place]) MCH 31.8 27.1 - 33.3 pg [facility] ([place]) MCHC 33.2 32.3 - 35.7 g/dL [facility] ([place]) RDW CV 11.9 11.1 - 14.9 % [facility]) RDW SD 41.7 35.7 - 48.1 fL [facility] ([place]) NRBC abs 0.00 0.00 - 0.01 K/cumm [facility] ([place]) Blood 03/29/2025 4:03 AM CDT 03/29/2025 5:11 AM CDT Juliana Peterson MD LAB BLOOD ORDERABLES [address] Result [facility] ([place]) 1 [facility] Department [place] [address] * (ABNORMAL) Basic metabolic panel (03/29/2025 4:03 AM CDT) Sodium 137 135 - 145 mmol/L Potassium, pl 3.7 3.3 - 4.9 mmol/L [facility] Chloride 100 97 - 110 mmol/L [facility]) CO2 25 22 - 32 mmol/L [facility]) Anion gap 12 2 - 15 mmol/L [facility] BUN 13 6 - 25 mg/dL [facility] ([place]) Creatinine 0.91 0.80 - 1.30 mg/dL [facility]) Glucose 127 70 - 199 mg/dL [facility] Comment: Interpretive Data Fasting glucose >/= 126 mg/dl is diagnostic for diabetes. Fasting is defined as no caloric intake for at least 8 hours. Fasting glucose between 100 mg/dl to 125 mg/dl is diagnostic of prediabetes. In a patient with classic symptoms of hyperglycemia or hyperglycemic crisis, a random glucose >/= 200 mg/dl is diagnostic for diabetes. In the absence of unequivocal hyperglycemia, results should be confirmed by repeat testing. The classification and Diagnosis of Diabetes Diabetes Care 2021; 46: S19-S40. Current interpretive data was last revised 2022. Calcium 8.3(L) 8.5 - 10.3 mg/dL [facility] ([place]) Blood 03/29/2025 4:03 AM CDT 03/29/2025 5:11 AM CDT us Juliana Peterson MD LAB BLOOD ORDERABLES Ellen l Result [facility] ([place]) 1 [facility] Department [place] [address] * MRI Abdomen Kidney W WO Contrast (03/28/2025 3:25 PM CDT) Anatomical Region Laterality Modality Body N/A Magnetic Resonan ce 03/28/2025 5:06 PM CDT Narrative 03/28/2025 5:19 PM CDT EXAM DESCRIPTION: MRI ABDOMEN KIDNEY W WO CONTRAST REASON FOR STUDY: Renal cyst left lower abdominal pain / nausea/vomiting. Left kidney lesion seen on US TECHNIQUE: MR images of the abdomen were acquired without and with intravenous contrast according to the renal mass abdominal protocol. All images stored on PACS. CONTRAST TYPE/DOSE: 11mL of GADOTERATE MEGLUMINE 0.5 MMOL/ML INTRAVENOUS SOLUTION (SO) injected via intravenous COMPARISON: CT abdomen and pelvis 03/22/2025; renal ultrasound 03/27/2025 FINDINGS: KIDNEYS: No suspicious renal lesion identified, specifically, no left renal interpolar lesion is seen to correspond to findings on prior ultrasound and CT. Symmetric renal enhancement. No hydronephrosis. LOWER CHEST: No effusion. LIVER: Partially visualized. No suspicious liver lesion. No evidence of steatosis. GALLBLADDER: No stones, wall thickening or pericholecystic fluid BILE DUCTS: No intrahepatic or extrahepatic ductal dilatation. SPLEEN: Normal size. No focal lesions. PANCREAS: No masses. No significant calcifications. No adjacent inflammation or peripancreatic fluid collections. Pancreatic duct not dilated. ADRENALS: Normal. GI: No visualized abnormality. PERITONEUM: No ascites. RETROPERITONEUM: No mass or adenopathy. VASCULATURE: No abdominal aortic aneurysm. MUSCULOSKELETAL: No acute findings. OTHER: No other abnormality. IMPRESSION: No suspicious renal lesion. Specifically, no left renal interpolar lesion to correspond to findings on prior imaging. THIS IS AN ELECTRONICALLY VERIFIED FINAL REPORT 03/28/2025 5:19 PM - Electronically signed by Adam CORREA: MADELINE Report ID: [id number] Reading Location: [place] [address] Procedure Note Adam Pitts MD - 03/28/2025 EXAM DESCRIPTION: MRI ABDOMEN KIDNEY W WO CONTRAST REASON FOR STUDY: Renal cyst left lower abdominal pain / nausea/vomiting. Left kidney lesion seen on US TECHNIQUE: MR images of the abdomen were acquired without and with intravenous contrast according to the renal mass abdominal protocol. All images stored on PACS. CONTRAST TYPE/DOSE: 11mL of GADOTERATE MEGLUMINE 0.5 MMOL/ML INTRAVENOUS SOLUTION (SO) injected via intravenous COMPARISON: CT abdomen and pelvis 03/22/2025; renal pkmbqpnzua02/17/2025 FINDINGS: KIDNEYS: No suspicious renal lesion identified, specifically, no leftrenal interpolar lesion is seen to correspond to findings on prior ultrasoundand CT. Symmetric renal enhancement. No hydronephrosis. LOWER CHEST: No effusion. LIVER: Partially visualized. No suspicious liver lesion. No evidenceof steatosis. GALLBLADDER: No stones, wall thickening or pericholecystic fluid BILE DUCTS: No intrahepatic or extrahepatic ductal dilatation. SPLEEN: Normal size. No focal lesions. PANCREAS: No masses. No significant calcifications. No adjacentinflammation or peripancreatic fluid collections. Pancreatic duct not dilated. ADRENALS: Normal. GI: No visualized abnormality. PERITONEUM: No ascites. RETROPERITONEUM: No mass or adenopathy. VASCULATURE: No abdominal aortic aneurysm. MUSCULOSKELETAL: No acute findings. OTHER: No other abnormality. IMPRESSION: No suspicious renal lesion. Specifically, no left renal interpolar lesionto correspond to findings on prior imaging. THIS IS AN ELECTRONICALLY VERIFIED FINAL REPORT 03/28/2025 5:19 PM - Electronically signed by Adam Pitts M.D. KR: MADELINE Report ID: [id number] Reading Location: [id number] us Juliana Peterson MD IMG MRI PROCEDURES Final Result * eGFR (03/28/2025 6:42 AM CDT) eGFR 88 >=60 mL/min/1. 73 m2 Comment: Interpretive Data Reference Interval Normal >/= 90 mL/min/1.73m2 Mildly decreased* 60 - 89 mL/min/1.73m2 Mildly to moderately decreased 45 - 59 mL/min/1.73m2 Moderately to severely decreased 30 - 44 mL/min/1.73m2 Severely decreased 15 - 29 mL/min/1.73m2 Kidney Failure < 15 mL/min/1.73m2 *Relative to young adult level Estimated glomerular filtration rate is determined by the 2020 CKD-EPI equation recommended by the National Kidney Foundation (A Unifying Approach to GFR Estimation: Recommendations of the NKF-ASK Task Force on Reassessing the Inclusion of Race in Diagnosing Kidney Disease, JASN 2020). The CKD-EPI equation should not be used for patients with unstable renal function and has not been validated in children and those over 70. Current interpretive data was last reviewed 2021. Blood 03/28/2025 6:42 AM CDT 03/28/2025 7:15 AM CDT Juliana Peterson MD LAB BLOOD ORDERABLES Ellen l Result [id number] [facility] 1 [facility] [place] [address] * (ABNORMAL) CBC without differential (03/28/2025 6:42 AM CDT) WBC 5.33 3.80 - 9.90 K/cumm Hgb 13.6 13.0 - 17.5 g/dL [facility] ([place]) Hct 41.3 38.9 - 50.3 % [facility] ([place]) Plt 248 150 - 400 K/cumm [facility] ([place]) MPV 9.7 9.1 - 12.3 fL [facility] ([place]) RBC 4.21(L) 4.30 - 5.80 M/cumm [facility] ([place] MCV 98.1(H) 81.3 - 96.4 fL [facility] ([place] MCH 32.3 27.1 - 33.3 pg [facility] ([place] MCHC 32.9 32.3 - 35.7 g/dL [facility] ([place] RDW CV 12.0 11.1 - 14.9 % [facility] RDW SD 43.3 35.7 - 48.1 fL [facility] NRBC abs 0.00 0.00 - 0.01 K/cumm [facility] Blood 03/28/2025 6:42 AM CDT 03/28/2025 7:15 AM CDT us Juliana Peterson MD LAB BLOOD ORDERABLES Ellen l Result [facility] ([place]) 1 [facility] Department [place] [address] * Basic metabolic panel (03/28/2025 6:42 AM CDT) Sodium 139 135 - 145 mmol/L Potassium, pl 4.2 3.3 - 4.9 mmol/L [facility] ([place] Chloride 102 97 - 110 mmol/L [facility] ([place] CO2 27 22 - 32 mmol/L [facility] ([place]) Anion gap 10 2 - 15 mmol/L [facility] ([place]) BUN 15 6 - 25 mg/dL [facility] ([place]) Creatinine 0.99 0.80 - 1.30 mg/dL [facility] Glucose 95 70 - 199 mg/dL [facility] ([place] Comment: Interpretive Data Fasting glucose >/= 126 mg/dl is diagnostic for diabetes. Fasting is defined as no caloric intake for at least 8 hours. Fasting glucose between 100 mg/dl to 125 mg/dl is diagnostic of prediabetes. In a patient with classic symptoms of hyperglycemia or hyperglycemic crisis, a random glucose >/= 200 mg/dl is diagnostic for diabetes. In the absence of unequivocal hyperglycemia, results should be confirmed by repeat testing. The classification and Diagnosis of Diabetes Diabetes Care 2021; 46: S19-S40. Current interpretive data was last revised 2022. Calcium 8.6 8.5 - 10.3 mg/dL [facility] ([place]) Blood 03/28/2025 6:42 AM CDT 03/28/2025 7:15 AM CDT us Juliana Peterson MD LAB BLOOD ORDERABLES Ellen ariana Result [facility] ([place]) 1 [facility] Department [place] [address] * US Kidney Complete (03/27/2025 3:41 PM CDT) Anatomical Region Laterality Modality Kidney N/A Ultrasound 03/27/2025 7:55 PM CDT Narrative 03/27/2025 8:01 PM CDT EXAM DESCRIPTION: US KIDNEY COMPLETE REASON FOR STUDY: on ct there is equivocal low density lesion of the left kidney TECHNIQUE: Ultrasound of the kidneys and urinary bladder was performed with grayscale imaging. COMPARISON: 03/26/2025 FINDINGS: RIGHT KIDNEY: The right kidney measures 10.0 cm in length. No hydronephrosis. Uniform color Doppler flow. Subtle cortical lobulation upper pole right kidney demonstrates no suspicious abnormality on recent CT of 03/30/2025. LEFT KIDNEY: The left kidney measures 10.2 cm in length. No hydronephrosis. Uniform color Doppler flow. 1.2 cm subtle focus midpole left kidney may indicate poorly demonstrated cyst though exact nature uncertain. This appears to correlate with CT abnormality from 03/30/2025 and remains nonspecific. URINARY BLADDER: Urinary bladder normally distended. Right-sided ureteral jet is visualized, left-sided jet is not visualized during the course of this exam. OTHER: No other additional findings. IMPRESSION: 1. No hydronephrosis. 2. 1.2 cm subtle focus midpole left kidney may indicate poorly demonstrated cyst though exact nature uncertain. This appears to correlate with CT abnormality from 03/30/2025 and remains nonspecific. 3. Consider MR imaging to better characterize if concerns are high THIS IS AN ELECTRONICALLY VERIFIED FINAL REPORT 03/27/2025 8:01 PM - Electronically signed by Ely Lieberman M.D. RB: AMANDA Report ID: [id number] Reading Location: [id number] Procedure Note Ely Lieberman MD - 03/27/2025 EXAM DESCRIPTION: US KIDNEY COMPLETE REASON FOR STUDY: on ct there is equivocal low density lesion of the left kidney TECHNIQUE: Ultrasound of the kidneys and urinary bladder was performedwith grayscale imaging. COMPARISON: 03/26/2025 FINDINGS: RIGHT KIDNEY: The right kidney measures 10.0 cm in length. No hydronephrosis. Uniform color Doppler flow. Subtle cortical lobulation upper pole right kidney demonstrates nosuspicious abnormality on recent CT of 03/30/2025. LEFT KIDNEY: The left kidney measures 10.2 cm in length. Nohydronephrosis. Uniform color Doppler flow. 1.2 cm subtle focus midpole left kidney may indicate poorly demonstratedcyst though exact nature uncertain. This appears to correlate with CTabnormality from 03/30/2025 and remains nonspecific. URINARY BLADDER: Urinary bladder normally distended. Right-sidedureteral jet is visualized, left-sided jet is not visualized during the course ofthis exam. OTHER: No other additional findings. IMPRESSION: 1. No hydronephrosis. 2. 1.2 cm subtle focus midpole left kidney may indicate poorlydemonstrated cyst though exact nature uncertain. This appears to correlate with CT abnormality from 03/30/2025 and remains nonspecific. 3. Consider MR imaging to better characterize if concerns are high THIS IS AN ELECTRONICALLY VERIFIED FINAL REPORT 03/27/2025 8:01 PM - Electronically signed by Ely Lieberman M.D. RB: AMANDA Report ID: [id number] Reading Location: [id number] Juliana Peterson MD IM US PROCEDURES Final R esult * eGFR (03/27/2025 10:52 AM CDT) eGFR 87 >=60 mL/min/1. 73 m2 Comment: Interpretive Data Reference Interval Normal >/= 90 mL/min/1.73m2 Mildly decreased* 60 - 89 mL/min/1.73m2 Mildly to moderately decreased 45 - 59 mL/min/1.73m2 Moderately to severely decreased 30 - 44 mL/min/1.73m2 Severely decreased 15 - 29 mL/min/1.73m2 Kidney Failure < 15 mL/min/1.73m2 *Relative to young adult level Estimated glomerular filtration rate is determined by the 2020 CKD-EPI equation recommended by the National Kidney Foundation (A Unifying Approach to GFR Estimation: Recommendations of the NKF-ASK Task Force on Reassessing the Inclusion of Race in Diagnosing Kidney Disease, JASN 2020). The CKD-EPI equation should not be used for patients with unstable renal function and has not been validated in children and those over 70. Current interpretive data was last reviewed 2021. Blood 03/27/2025 10:5 2 AM CDT 03/27/2025 10:58 AM CDT us Juliana Peterson MD LAB BLOOD ORDERABLES Ellen lane Result [facility] ([place]) 1 [facility] Department of Laboratories [place], [place] [id number] * (ABNORMAL) CBC without differential (03/27/2025 10:52 AM CDT) WBC 5.86 3.80 - 9.90 K/cumm Hgb 14.1 13.0 - 17.5 g/dL [facility] Hct 42.0 38.9 - 50.3 % [facility] ([place]) Plt 242 150 - 400 K/cumm [facility] ([place] MPV 9.3 9.1 - 12.3 fL [facility] RBC 4.31 4.30 - 5.80 M/cumm [facility] ([place] MCV 97.4(H) 81.3 - 96.4 fL [facility] ([place]) MCH 32.7 27.1 - 33.3 pg [facility] ([place]) MCHC 33.6 32.3 - 35.7 g/dL [facility] ([place]) RDW CV 12.2 11.1 - 14.9 % [facility] ([place]) RDW SD 44.1 35.7 - 48.1 fL [facility] ([place]) NRBC abs 0.00 0.00 - 0.01 K/cumm [facility] ([place]) Blood 03/27/2025 10:5 2 AM CDT 03/27/2025 10:58 AM CDT us Juliana Peterson MD LAB BLOOD ORDERABLES Ellen lane Result [facility] ([place]) 1 [facility] Department [place] [address] * Basic metabolic panel (03/27/2025 10:52 AM CDT) Sodium 137 135 - 145 mmol/L Potassium, pl 3.8 3.3 - 4.9 mmol/L [facility] ([place] Chloride 99 97 - 110 mmol/L [facility]) CO2 25 22 - 32 mmol/L [facility] ([place] Anion gap 12 2 - 15 mmol/L [facility] ([place]) BUN 18 6 - 25 mg/dL [facility] ([place]) Creatinine 1.00 0.80 - 1.30 mg/dL [facility] Glucose 115 70 - 199 mg/dL [facility] ([place] Comment: Interpretive Data Fasting glucose >/= 126 mg/dl is diagnostic for diabetes. Fasting is defined as no caloric intake for at least 8 hours. Fasting glucose between 100 mg/dl to 125 mg/dl is diagnostic of prediabetes. In a patient with classic symptoms of hyperglycemia or hyperglycemic crisis, a random glucose >/= 200 mg/dl is diagnostic for diabetes. In the absence of unequivocal hyperglycemia, results should be confirmed by repeat testing. The classification and Diagnosis of Diabetes Diabetes Care 2021; 46: S19-S40. Current interpretive data was last revised 2022. Calcium 8.5 8.5 - 10.3 mg/dL [facility] ([place]) Blood 03/27/2025 10:5 2 AM CDT 03/27/2025 10:58 AM CDT Juliana Peterson MD LAB BLOOD ORDERABLES Ellen l Result [facility] ([place]) 1 [facility] Department [place] [address] * Urinalysis reflex to microscopic (03/27/2025 6:05 AM CDT) Color, ur Yellow Yellow Clarity, ur Clear Clear [facility] ([place]) Specific gravity, ur 1.029 1.003 - 1.030 [facility] ([place]) pH, urine 6.0 [facility] ([place]) Comment: Interpretive Data U rine pH is affected by diet, medications, systemic acid-base disturbances, and renal tubular function. pH may affect urinary stone formation. For example, urine pH below 6.0 may help reduce the tendency for calcium phosphate stones and pH greater than 6.0 may reduce the tendency for uric acid stone formation. Source: [facility] Current Interpretive Data was last revised on 2017 Protein, ur ql Trace Negative [facility] ([place]) Glucose, ur ql Negative Negative [facility] ([place]) Ketones, ur Negative Negative [facility] ([place]) Bilirubin, ur Negative Negative [facility] ([place]) Blood, ur Negative Negative [facility] ([place]) Urobilinogen, ur <2.0 <2.0 mg/dL [facility] ([place]) Nitrite, ur Negative Negative [facility] ([place]) Leukocyte esterase, ur Negative Negative [facility] ([place]) UA reflex comment Reflex conditions for microscopic UA not met. [facility] ([place]) Urine 03/27/2025 6:05 AM CDT 03/27/2025 6:10 AM CDT us Juliana Peterson MD LAB URINE ORDERABLES Ellen lane Result [facility] [place]) 1 [facility] Department of Laboratories [place], [place] [id number] * CT Abdomen Pelvis WO Contrast (03/26/2025 3:27 PM CDT) Anatomical Region Laterality Modality Body N/A Computed Tomogra phy 03/26/2025 3:48 PM CDT Narrative 03/26/2025 3:56 PM CDT EXAM DESCRIPTION: CT ABDOMEN PELVIS WO CONTRAST REASON FOR STUDY: Abdominal pain, acute, nonlocalized Patient points to left lower abdominal pain / nausea/vomiting Hx of hernia repair TECHNIQUE: CT scan of the abdomen and pelvis performed without intravenous and without oral contrast using helical scanning technique. Reconstructed coronal and sagittal MPR images reviewed. All images stored on PACS. Automated exposure control was used as a dose optimization technique for this examination. COMPARISON: Prior KUB earlier today and prior CT abdomen pelvis 03/22/2025. FINDINGS: The sensitivity for detection of visceral lesions is diminished without the use of intravenous contrast. LOWER CHEST: Limited views through the lung base demonstrates linear opacities favoring atelectasis. No confluent infiltrate or effusion. LIVER: The liver demonstrates a normal appearance given limitations without IV contrast. GALLBLADDER: No stones or inflammatory change. BILE DUCTS: No intrahepatic or extrahepatic ductal dilatation. SPLEEN: Normal size. No focal lesions. PANCREAS: No identified cystic or solid masses. No significant calcifications. No adjacent inflammation or peripancreatic fluid collections. Pancreatic duct not dilated. ADRENALS: Normal. KIDNEYS/URINARY TRACT: No identified significant cystic or solid masses. No stones. No hydronephrosis or hydroureter. Urinary bladder is unremarkable. No evidence of abnormality given limitations without IV contrast. There was a an equivocal low-density lesion of the left kidney on the prior CT with contrast. This is not well seen on this current exam. Routine follow-up ultrasound can be obtained non emergently. No definite abnormality on this noncontrast exam. GI: There is moderate stool of the ascending, transverse and descending colon tapering distally. No acute inflammatory change or obstruction. Appendix appears normal. Stomach and loops of small bowel demonstrate no obstruction or inflammatory change. PERITONEUM: No ascites or free air. RETROPERITONEUM: No mass or adenopathy. REPRODUCTIVE: No significant abnormality. VASCULATURE: Mild atherosclerotic change abdominal aorta. No aneurysmal dilatation. MUSCULOSKELETAL: No suspicious lytic or blastic lesion. 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 Moderate spondylosis lower thoracic spine and mild of the lumbar spine. IMPRESSION: 1. No acute inflammatory change of the abdomen or pelvis. No bowel obstruction or inflammatory change of bowel. 2. Moderate stool of the ascending, transverse and descending colon tapering distally. No obstruction. 3. No evidence of nephrolithiasis or hydronephrosis. 4. There was a equivocal low-density lesion of the left kidney on the prior CT with contrast. This is not well seen on this current exam. Routine follow-up ultrasound can be obtained non emergently. THIS IS AN ELECTRONICALLY VERIFIED FINAL REPORT 03/26/2025 3:56 PM - Electronically signed by Peter Monterroso M.D. MJ: JARVIS Report ID: [id number] Reading Location: [id number] Procedure Note Peter Monterroso MD - 03/26/2025 EXAM DESCRIPTION: CT ABDOMEN PELVIS WO CONTRAST REASON FOR STUDY: Abdominal pain, acute, nonlocalized Patient points to left lower abdominal pain / nausea/vomiting Hx ofhernia repair TECHNIQUE: CT scan of the abdomen and pelvis performed without intravenousand without oral contrast using helical scanning technique. Reconstructed coronal and sagittal MPR images reviewed. All images stored on PACS.Automated exposure control was used as a dose optimization technique for this examination. COMPARISON: Prior KUB earlier today and prior CT abdomen [id number]/22/2025. FINDINGS: The sensitivity for detection of visceral lesions is diminished withoutthe use of intravenous contrast. LOWER CHEST: Limited views through the lung base demonstrates linear opacities favoring atelectasis. No confluent infiltrate or effusion. LIVER: The liver demonstrates a normal appearance given limitationswithout IV contrast. GALLBLADDER: No stones or inflammatory change. BILE DUCTS: No intrahepatic or extrahepatic ductal dilatation. SPLEEN: Normal size. No focal lesions. PANCREAS: No identified cystic or solid masses. No significant calcifications. No adjacent inflammation or peripancreatic fluidcollections. Pancreatic duct not dilated. ADRENALS: Normal. KIDNEYS/URINARY TRACT: No identified significant cystic or solid masses.No stones. No hydronephrosis or hydroureter. Urinary bladder isunremarkable. No evidence of abnormality given limitations without IV contrast. Therewas a an equivocal low-density lesion of the left kidney on the prior CT with contrast. This is not well seen on this current exam. Routine follow-up ultrasound can be obtained non emergently. No definite abnormality onthis noncontrast exam. GI: There is moderate stool of the ascending, transverse and descending colon tapering distally. No acute inflammatory change or obstruction. Appendix appears normal. Stomach and loops of small bowel demonstrate no obstruction or inflammatory change. PERITONEUM: No ascites or free air. RETROPERITONEUM: No mass or adenopathy. REPRODUCTIVE: No significant abnormality. VASCULATURE: Mild atherosclerotic change abdominal aorta. No aneurysmal dilatation. MUSCULOSKELETAL: No suspicious lytic or blastic lesion. Ankylosis ofthe right sacroiliac joint with smaller focus of ankylosis on the left.Moderate spondylosis lower thoracic spine and mild of the lumbar spine. IMPRESSION: 1. No acute inflammatory change of the abdomen or pelvis. No bowel obstruction or inflammatory change of bowel. 2. Moderate stool of the ascending, transverse and descending colontapering distally. No obstruction. 3. No evidence of nephrolithiasis or hydronephrosis. 4. There was a equivocal low-density lesion of the left kidney on theprior CT with contrast. This is not well seen on this current exam. Routine follow-up ultrasound can be obtained non emergently. THIS IS AN ELECTRONICALLY VERIFIED FINAL REPORT 03/26/2025 3:56 PM - Electronically signed by Peter CONLEY: JARVIS Report ID: [id number] Reading Location: [id number] us Juliana Peterson MD IMG CT PROCEDURES Final R esult * XR Kub (03/26/2025 12:15 PM CDT) Anatomical Region Laterality Modality Body, Abdomen N/A Computed Radiogr aphy 03/26/2025 3:46 PM CDT Narrative 03/26/2025 3:48 PM CDT EXAM DESCRIPTION: XR KUB REASON FOR STUDY: abd pain Abdominal pain TECHNIQUE: Single radiographic view of the abdomen. COMPARISON: Prior CT 03/22/2025 FINDINGS: Lung base demonstrates no infiltrate. Nonobstructive bowel gas pattern with moderate stool of the colon. No definite nephrolithiasis. No acute osseous findings. Moderate spondylosis of the visualized lower thoracic spine with mild change of the lumbar spine. IMPRESSION: Nonobstructive bowel gas pattern with moderate stool of the colon. THIS IS AN ELECTRONICALLY VERIFIED FINAL REPORT 03/26/2025 3:48 PM - Electronically signed by Peter CONLEY Report ID: [id number] Reading Location: [id number] Procedure Note Peter Monterroso MD - 03/26/2025 EXAM DESCRIPTION: XR KUB REASON FOR STUDY: abd pain Abdominal pain TECHNIQUE: Single radiographic view of the abdomen. COMPARISON: Prior CT 03/22/2025 FINDINGS: Lung base demonstrates no infiltrate. Nonobstructive bowel gas patternwith moderate stool of the colon. No definite nephrolithiasis. No acuteosseous findings. Moderate spondylosis of the visualized lower thoracic spinewith mild change of the lumbar spine. IMPRESSION: Nonobstructive bowel gas pattern with moderate stool of the colon. THIS IS AN ELECTRONICALLY VERIFIED FINAL REPORT 03/26/2025 3:48 PM - Electronically signed by Peter CONLEY: JARVIS Report ID: [id number] Reading Location: [id number] us Juliana Peterson MD IMG XR PROCEDURES Final R esult * ECG 12 lead (03/26/2025 11:02 AM CDT) 03/26/2025 11:0 2 AM CDT Narrative [facility] - 03/26/2025 12:30 PM CDT Vent Rate: 87 bpm RR Interval: 685 msec AL Interval: 116 msec QRS Duration: 98 msec QT Interval: 338 msec QTC Interval: 383 msec P-R-T Ucon: 85 - -22 - 60 degrees IMPRESSION: SINUS RHYTHM WITH SHORT AL INTERVAL WITH OCCASIONAL SUPRAVENTRICULAR PREMATURE COMPLEXES POSSIBLE LEFT ATRIAL ENLARGEMENT [-0.1mV P-WAVE IN V1/V2] SEPTAL MYOCARDIAL INFARCTION , OF INDETERMINATE AGE [40+ ms Q WAVE IN V1/V2] MODERATE T-WAVE ABNORMALITY, CONSIDER LATERAL ISCHEMIA [-0.1+ mV T-WAVE IN I/aVL/V5/V6] ABNORMAL ECG Compared to prior EKG, PACs are new Electronically Signed By: Nicholas Mott MD us Juliana Peterson MD ECG ORDERABLES Final Res ult [facility] * eGFR (03/26/2025 6:40 AM CDT) eGFR >90 >=60 mL/min/1. 73 m2 Comment: Interpretive Data Reference Interval Normal >/= 90 mL/min/1.73m2 Mildly decreased* 60 - 89 mL/min/1.73m2 Mildly to moderately decreased 45 - 59 mL/min/1.73m2 Moderately to severely decreased 30 - 44 mL/min/1.73m2 Severely decreased 15 - 29 mL/min/1.73m2 Kidney Failure < 15 mL/min/1.73m2 *Relative to young adult level Estimated glomerular filtration rate is determined by the 2020 CKD-EPI equation recommended by the National Kidney Foundation (A Unifying Approach to GFR Estimation: Recommendations of the NKF-ASK Task Force on Reassessing the Inclusion of Race in Diagnosing Kidney Disease, JASN 202). The CKD-EPI equation should not be used for patients with unstable renal function and has not been validated in children and those over 70. Current interpretive data was last reviewed 2021. Blood 03/26/2025 6:40 AM CDT 03/26/2025 6:56 AM CDT us Juliana Peterson MD LAB BLOOD ORDERABLES Ellen l Result [facility] ([place]) 1 [facility] [employer] [place] [place] [address] * Magnesium (03/26/2025 6:40 AM CDT) Pathologist [facility] Magnesium 2.2 1.4 - 2.5 mg/dL Blood 03/26/2025 6:40 AM CDT 03/26/2025 11:22 AM CDT Juliana Peterson MD LAB BLOOD ORDERABLES Ellen l Result Performing Organization Address City/[facility]/ZIP Co de Phone Number [facility] ([place]) 1 [facility] [place] [employer] [place] [place] [address] * Basic metabolic panel (03/26/2025 6:40 AM CDT) Sodium 135 135 - 145 mmol/L Potassium, pl 4.0 3.3 - 4.9 mmol/L [facility] Chloride 98 97 - 110 mmol/L [facility]) CO2 23 22 - 32 mmol/L [facility]) Anion gap 15 2 - 15 mmol/L [facility] ([place]) BUN 17 6 - 25 mg/dL [facility] ([place]) Creatinine 0.92 0.80 - 1.30 mg/dL [facility] Glucose 118 70 - 199 mg/dL [facility] ([place]) Comment: Interpretive Data Fasting glucose >/= 126 mg/dl is diagnostic for diabetes. Fasting is defined as no caloric intake for at least 8 hours. Fasting glucose between 100 mg/dl to 125 mg/dl is diagnostic of prediabetes. In a patient with classic symptoms of hyperglycemia or hyperglycemic crisis, a random glucose >/= 200 mg/dl is diagnostic for diabetes. In the absence of unequivocal hyperglycemia, results should be confirmed by repeat testing. The classification and Diagnosis of Diabetes Diabetes Care 2021; 46: S19-S40. Current interpretive data was last revised 2022. Calcium 9.2 8.5 - 10.3 mg/dL [facility] ([place]) Blood 03/26/2025 6:40 AM CDT 03/26/2025 6:56 AM CDT us Juliana Peterson MD LAB BLOOD ORDERABLES Ellen l Result Performing Organization Address City/[facility]/ZIP Co de Phone Number [facility] ([place]) 1 [facility] [employer] [place] [place] [address] * eGFR (03/24/2025 5:56 AM CDT) eGFR >90 >=60 mL/min/1. 73 m2 Comment: Interpretive Data Reference Interval Normal >/= 90 mL/min/1.73m2 Mildly decreased* 60 - 89 mL/min/1.73m2 Mildly to moderately decreased 45 - 59 mL/min/1.73m2 Moderately to severely decreased 30 - 44 mL/min/1.73m2 Severely decreased 15 - 29 mL/min/1.73m2 Kidney Failure < 15 mL/min/1.73m2 *Relative to young adult level Estimated glomerular filtration rate is determined by the 2020 CKD-EPI equation recommended by the National Kidney Foundation (A Unifying Approach to GFR Estimation: Recommendations of the NKF-ASK Task Force on Reassessing the Inclusion of Race in Diagnosing Kidney Disease, JASN 2020). The CKD-EPI equation should not be used for patients with unstable renal function and has not been validated in children and those over 70. Current interpretive data was last reviewed 2021. Blood 03/24/2025 5:56 AM CDT 03/24/2025 6:25 AM CDT us Jia Paul DO LAB BLOOD ORDERABLES Fin al Result [facility] ([place]) 1 [facility] Department [place] [employer] [place] [place] [address] * Differential, auto (03/24/2025 5:56 AM CDT) Neutrophil abs 6.00 1.50 - 6.50 K/cumm Imm gran abs 0.02 0.00 - 0.10 K/cumm [facility] ([place]) Lymphocyte abs 0.90 0.80 - 3.30 K/cumm [facility] ([place]) Monocyte abs 0.75 0.20 - 0.80 K/cumm [facility] ([place]) Eosinophil abs 0.00 0.00 - 0.50 K/cumm [facility] ([place]) Basophil abs 0.03 0.00 - 0.10 K/cumm [facility] ([place]) Neutrophil pct 77.9 % [facility] ([place]) Comment: Interpretive Data Percent cell count reference ranges are not reported, since discordance with absolute values may lead to misinterpretation of CBC data. Current Interpretive Data was last revised on 2018. Imm gran pct 0.3 % [facility] (ASHA) Comment: Interpretive Data Percent cell count reference ranges are not reported, since discordance with absolute values may lead to misinterpretation of CBC data. Current Interpretive Data was last revised on 2018. Lymphocyte pct 11.7 % [facility] (ASHA) Comment: Interpretive Data Percent cell count reference ranges are not reported, since discordance with absolute values may lead to misinterpretation of CBC data. Current Interpretive Data was last revised on 2018. Monocyte pct 9.7 % [facility] (ASHA) Comment: Interpretive Data Percent cell count reference ranges are not reported, since discordance with absolute values may lead to misinterpretation of CBC data. Current Interpretive Data was last revised on 2018. Eosinophil pct 0.0 % [facility] (ASHA) Comment: Interpretive Data Percent cell count reference ranges are not reported, since discordance with absolute values may lead to misinterpretation of CBC data. Current Interpretive Data was last revised on 2018. Basophil pct 0.4 % [facility] (ASHA) Comment: Interpretive Data Percent cell count reference ranges are not reported, since discordance with absolute values may lead to misinterpretation of CBC data. Current Interpretive Data was last revised on 2018. Blood 03/24/2025 5:56 AM CDT 03/24/2025 6:25 AM CDT Jia Paul DO LAB BLOOD ORDERABLES Fin al Result [facility] (ASHA) 1 [facility] [place] [address] * CBC with auto differential (03/24/2025 5:56 AM CDT) WBC 7.70 3.80 - 9.90 K/cumm Hgb 15.8 13.0 - 17.5 g/dL [facility] (ASHA) Hct 46.2 38.9 - 50.3 % [facility] (ASHA) Plt 271 150 - 400 K/cumm [facility] (ASHA) MPV 9.9 9.1 - 12.3 fL [facility] (ASHA) RBC 4.92 4.30 - 5.80 M/cumm [facility] (ASHA) MCV 93.9 81.3 - 96.4 fL [facility] (ASHA) MCH 32.1 27.1 - 33.3 pg [facility] (ASHA) MCHC 34.2 32.3 - 35.7 g/dL [facility] (ASHA) RDW CV 12.4 11.1 - 14.9 % [facility] (ASHA) RDW SD 42.8 35.7 - 48.1 fL [facility] (ASHA) NRBC abs 0.00 0.00 - 0.01 K/cumm [facility] (ASHA) Blood 03/24/2025 5:56 AM CDT 03/24/2025 6:25 AM CDT Jia Paul DO LAB BLOOD ORDERABLES Fin al Result [facility] (ASHA) 1 [facility] [place] [address] * Phosphorus (03/24/2025 5:56 AM CDT) Phosphorus, pl 2.8 2.3 - 4.5 mg/dL Blood 03/24/2025 5:56 AM CDT 03/24/2025 6:25 AM CDT Jia Paul DO LAB BLOOD ORDERABLES Fin al Result [facility] (ASHA) 1 [facility] [place] [address] * Magnesium (03/24/2025 5:56 AM CDT) Pathologist [facility] Magnesium 2.0 1.4 - 2.5 mg/dL Blood 03/24/2025 5:56 AM CDT 03/24/2025 6:25 AM CDT Jia Paul DO LAB BLOOD ORDERABLES Fin al Result Performing Organization Address [facility] de Phone Number [facility] (ASHA) 1 [place] [address] * (ABNORMAL) Comprehensive metabolic panel (03/24/2025 5:56 AM CDT) Sodium 137 135 - 145 mmol/L Potassium, pl 3.5 3.3 - 4.9 mmol/L [facility] (ASHA) Chloride 99 97 - 110 mmol/L [facility] (ASHA) CO2 22 22 - 32 mmol/L [facility] (ASHA) Anion gap 16(H) 2 - 15 mmol/L [facility] ([facility] BUN 8 6 - 25 mg/dL [facility] ([facility]) Creatinine 0.87 0.80 - 1.30 mg/dL [facility] (ASHA) Glucose 139 70 - 199 mg/dL [facility] (ASHA) Comment: Interpretive Data Fasting glucose >/= 126 mg/dl is diagnostic for diabetes. Fasting is defined as no caloric intake for at least 8 hours. Fasting glucose between 100 mg/dl to 125 mg/dl is diagnostic of prediabetes. In a patient with classic symptoms of hyperglycemia or hyperglycemic crisis, a random glucose >/= 200 mg/dl is diagnostic for diabetes. In the absence of unequivocal hyperglycemia, results should be confirmed by repeat testing. The classification and Diagnosis of Diabetes Diabetes Care 2021; 46: S19-S40. Current interpretive data was last revised 2022. Calcium 9.4 8.5 - 10.3 mg/dL [facility] (ASHA) Bilirubin, total 0.3 0.1 - 1.2 mg/dL [facility] (ASHA) Protein, pl 7.9 6.5 - 8.5 g/dL [facility] (ASHA) Albumin 4.3 3.5 - 5.0 g/dL [facility] (ASHA) Alk phos 93 40 - 130 Units/L [facility] (ASHA) ALT 18 7 - 55 Units/L [facility] (ASHA) AST 20 10 - 50 Units/L [facility] (ASHA) Blood 03/24/2025 5:56 AM CDT 03/24/2025 6:25 AM CDT Jia Paul DO LAB BLOOD ORDERABLES Fin al Result [facility] 1 [facility] Department [place] [address] * eGFR (03/23/2025 3:34 AM CDT) eGFR 80 >=60 mL/min/1. 73 m2 Comment: Interpretive Data Reference Interval Normal >/= 90 mL/min/1.73m2 Mildly decreased* 60 - 89 mL/min/1.73m2 Mildly to moderately decreased 45 - 59 mL/min/1.73m2 Moderately to severely decreased 30 - 44 mL/min/1.73m2 Severely decreased 15 - 29 mL/min/1.73m2 Kidney Failure < 15 mL/min/1.73m2 *Relative to young adult level Estimated glomerular filtration rate is determined by the 2020 CKD-EPI equation recommended by the National Kidney Foundation (A Unifying Approach to GFR Estimation: Recommendations of the NKF-ASK Task Force on Reassessing the Inclusion of Race in Diagnosing Kidney Disease, JASN 2020). The CKD-EPI equation should not be used for patients with unstable renal function and has not been validated in children and those over 70. Current interpretive data was last reviewed 2021. Blood 03/23/2025 3:34 AM CDT 03/23/2025 5:17 AM CDT us Simon Pham MD LAB BLOOD ORDERABLES Final Resu lt [facility] ([place]) 1 [facility] Department [place] [address] * Differential, auto (03/23/2025 3:34 AM CDT) Neutrophil abs 4.35 1.50 - 6.50 K/cumm Imm gran abs 0.02 0.00 - 0.10 K/cumm [facility] ([place]) Lymphocyte abs 2.33 0.80 - 3.30 K/cumm [facility] ([place]) Monocyte abs 0.79 0.20 - 0.80 K/cumm [facility] ([place]) Eosinophil abs 0.05 0.00 - 0.50 K/cumm [facility] ([place]) Basophil abs 0.05 0.00 - 0.10 K/cumm [facility] ([place]) Neutrophil pct 57.2 % [facility] ([place]) Comment: Interpretive Data Percent cell count reference ranges are not reported, since discordance with absolute values may lead to misinterpretation of CBC data. Current Interpretive Data was last revised on 2018. Imm gran pct 0.3 % [facility] ([place]) Comment: Interpretive Data Percent cell count reference ranges are not reported, since discordance with absolute values may lead to misinterpretation of CBC data. Current Interpretive Data was last revised on 2018. Lymphocyte pct 30.7 % [facility] (ASHA) Comment: Interpretive Data Percent cell count reference ranges are not reported, since discordance with absolute values may lead to misinterpretation of CBC data. Current Interpretive Data was last revised on 2018. Monocyte pct 10.4 % [facility] ([place]) Comment: Interpretive Data Percent cell count reference ranges are not reported, since discordance with absolute values may lead to misinterpretation of CBC data. Current Interpretive Data was last revised on 2018. Eosinophil pct 0.7 % [facility] ([place]) Comment: Interpretive Data Percent cell count reference ranges are not reported, since discordance with absolute values may lead to misinterpretation of CBC data. Current Interpretive Data was last revised on 2018. Basophil pct 0.7 % [facility] (ASHA) Comment: Interpretive Data Percent cell count reference ranges are not reported, since discordance with absolute values may lead to misinterpretation of CBC data. Current Interpretive Data was last revised on 2018. Blood 03/23/2025 3:34 AM CDT 03/23/2025 5:17 AM CDT us Simon Pham MD LAB BLOOD ORDERABLES Final Resu lt [facility] (ASHA) 1 [facility] Department [place] [address] * (ABNORMAL) CBC with auto differential (03/23/2025 3:34 AM CDT) WBC 7.59 3.80 - 9.90 K/cumm Hgb 14.2 13.0 - 17.5 g/dL [facility] (ASHA) Hct 42.8 38.9 - 50.3 % [facility] (ASHA) Plt 275 150 - 400 K/cumm [facility] (ASHA) MPV 10.3 9.1 - 12.3 fL [facility] (ASHA) RBC 4.41 4.30 - 5.80 M/cumm [facility] (ASHA) MCV 97.1(H) 81.3 - 96.4 fL [facility] (ASHA) MCH 32.2 27.1 - 33.3 pg [facility] (ASHA) MCHC 33.2 32.3 - 35.7 g/dL [facility] (ASHA) RDW CV 12.7 11.1 - 14.9 % [facility] (ASHA) RDW SD 45.9 35.7 - 48.1 fL [facility] (ASHA) NRBC abs 0.00 0.00 - 0.01 K/cumm [facility] (ASHA) Blood 03/23/2025 3:34 AM CDT 03/23/2025 5:17 AM CDT Simon Pham MD LAB BLOOD ORDERABLES Final Resu lt Performing Organization Address City/[facility]/ZIP Co de Phone Number [facility]) 1 [facility] [place] [address] * (ABNORMAL) Hemoglobin A1c (03/23/2025 3:34 AM CDT) Hgb A1C 5.7(H) 4.0 - 5.6 % Estimated Average Glucose 117 mg/dL [facility] (ASHA) Comment: The ADA recommends reporting an estimated Average Glucose (eAG) with all Hemoglobin A1c results using the equation derived from a study of 507 normal and diabetic adults. Minority populations were underrepresented and children were not included. (Diabetes Care 31:0535-7198, 2008). The eAG is not equivalent to a fasting glucose. Blood 03/23/2025 3:34 AM CDT 03/23/2025 5:17 AM CDT us Simon Pham MD LAB BLOOD ORDERABLES Final Resu lt Performing Organization Address City/[facility] Co de Phone Number [facility] ([place]) 1 [place] [address] * Lipid panel (03/23/2025 3:34 AM CDT) Cholesterol 163 30 - 199 mg/dL Comment: Interpretive Data Ages < or = 19 years Acceptable: <170 mg/dL Borderline high: 170-199 mg/dL High: >or= 200 mg/dL Ages > or = 20 years Desirable: <200 mg/dL Borderline high: 200-239 mg/dL High: >or= 240 mg/dL Literature References: 1. Expert Panel on Integrated Guidelines for Cardiovascular Health and Risk Reduction in Children and Adolescents. Pediatrics 2011;128:S213 2. NCEP Expert Panel. Circulation 2004;110:227 Current Interpretive Data was last revised on 2018. Triglycerides 49 <=149 mg/dL [facility] (ASHA) Comment: Interpretive Data Ages < or = 9 years Acceptable: <75 mg/dL Borderline high: 75-99 mg/dL High: >or= 100 mg/dL Ages 10 to 20 years Acceptable: <90 mg/dL Borderline high: 90-129 mg/dL High: >or= 130 mg/dL Ages > or = 20 years Desirable: <150 mg/dL Borderline high: 150-199 mg/dL High: 200-499 mg/dL Very high: >or= 499 mg/dL Literature References: 1. Expert Panel on Integrated Guidelines for Cardiovascular Health and Risk Reduction in Children and Adolescents. Pediatrics 2011;128:S213 2. NCEP Expert Panel. Circulation 2004;110:227 Current Interpretive Data was last revised on 2018. HDL 58 >=40 mg/dL [facility]) Comment: Interpretive Data Ages < or = 19 years Acceptable: >45 mg/dL Borderline low: 40-45 mg/dL Low: <40 mg/dL Ages > or = 20 years Desirable: >or= 60 mg/dL Low: <40 mg/dL Literature References: 1. Expert Panel on Integrated Guidelines for Cardiovascular Health and Risk Reduction in Children and Adolescents. Pediatrics 2011;128:S213 2. NCEP Expert Panel. Circulation 2004;110:227 Current Interpretive Data was last revised on 2018. LDL, calculated 95 <=129 mg/dL [facility]) Comment: Interpretive Data Ages < or = 19 years Acceptable: <110 mg/dL Borderline high: 110-129 mg/dL High: >or= 130 mg/dL Ages > or = 20 years Optimal: <100 mg/dL Near optimal: 100-129 mg/dL Borderline high: 130-159 mg/dL High: >160 mg/dL Calculated using the Carlos LDL-C estimating equation. This equation was implemented on 2024. Prior to this date LDL-C was estimated using the Friedewald equation. Literature References: 1. Expert Panel on Integrated Guidelines for Cardiovascular Health and Risk Reduction in Children and Adolescents. Pediatrics 2011;128:S213 2. NCEP Expert Panel. Circulation 2004;110:227 3. Carlos Wei al. LUTHER Cardiol. 2020 February 08;5(5):540-548. doi: 10.1001/[email or web address].2020.0013 Current Interpretive Data was last revised on 2024. Non-HDL Cholesterol 105 mg/dL [facility] (ASHA) Comment: Interpretive Data Ages < or = 19 years Acceptable: <120 mg/dL Borderline high: 120-144 mg/dL High: >145 mg/dL Ages > or = 20 years When triglycerides are >200 mg/dL, Non-HDL cholesterol is a secondary target of therapy with treatment goals that are 30 mg/dL greater than the LDL cholesterol target. Literature References: 1. Expert Panel on Integrated Guidelines for Cardiovascular Health and Risk Reduction in Children and Adolescents. Pediatrics 2011;128:S213 2. NCEP Expert Panel. Circulation 2004;110:227 Current Interpretive Data was last revised on 2018. Chol/HDL ratio 3 [facility] (ASHA) Blood 03/23/2025 3:34 AM CDT 03/23/2025 5:17 AM CDT Simon Pham MD LAB BLOOD ORDERABLES Final Resu lt [facility] (ASHA) 1 [facility] Department [place] [address] * Comprehensive metabolic panel (03/23/2025 3:34 AM CDT) Sodium 138 135 - 145 mmol/L Potassium, pl 3.8 3.3 - 4.9 mmol/L [facility] (ASHA) Chloride 100 97 - 110 mmol/L [facility] (ASHA) CO2 24 22 - 32 mmol/L [facility] (ASHA) Anion gap 14 2 - 15 mmol/L [facility] (ASHA) BUN 10 6 - 25 mg/dL [facility] ([facility]) Creatinine 1.08 0.80 - 1.30 mg/dL [facility] (ASHA) Glucose 73 70 - 199 mg/dL [facility] (ASHA) Comment: Interpretive Data Fasting glucose >/= 126 mg/dl is diagnostic for diabetes. Fasting is defined as no caloric intake for at least 8 hours. Fasting glucose between 100 mg/dl to 125 mg/dl is diagnostic of prediabetes. In a patient with classic symptoms of hyperglycemia or hyperglycemic crisis, a random glucose >/= 200 mg/dl is diagnostic for diabetes. In the absence of unequivocal hyperglycemia, results should be confirmed by repeat testing. The classification and Diagnosis of Diabetes Diabetes Care 2021; 46: S19-S40. Current interpretive data was last revised 2022. Calcium 9.3 8.5 - 10.3 mg/dL [facility] (ASHA) Bilirubin, total 0.4 0.1 - 1.2 mg/dL [facility] (ASHA) Protein, pl 7.0 6.5 - 8.5 g/dL [facility] (ASHA) Albumin 4.0 3.5 - 5.0 g/dL [facility] (ASHA) Alk phos 84 40 - 130 Units/L [facility] (ASHA) ALT 18 7 - 55 Units/L [facility] (ASHA) AST 22 10 - 50 Units/L [facility] (ASHA) Blood 03/23/2025 3:34 AM CDT 03/23/2025 5:17 AM CDT us Simon Pham MD LAB BLOOD ORDERABLES Final Resu lt [facility] (ASHA) 1 [facility] Department of Laboratories [place], [place] [id number] * (ABNORMAL) Urinalysis reflex to microscopic and culture Urine (03/22/2025 6:16 PM CDT) Color, ur Yellow Yellow Clarity, ur Clear Clear [facility] (ASHA) Specific gravity, ur 1.010 1.003 - 1.030 [facility] (ASHA) pH, urine 7.0 [facility] (ASHA) Comment: Interpretive Data U rine pH is affected by diet, medications, systemic acid-base disturbances, and renal tubular function. pH may affect urinary stone formation. For example, urine pH below 6.0 may help reduce the tendency for calcium phosphate stones and pH greater than 6.0 may reduce the tendency for uric acid stone formation. Source: [facility] [employer] Current Interpretive Data was last revised on 2017 Protein, ur ql Trace Negative [facility] (ASHA) Glucose, ur ql Trace(A) Negative [facility] (ASHA) Ketones, ur 1+(A) Negative [facility] A (ASHA) Bilirubin, ur Negative Negative [facility] (ASHA) Blood, ur Negative Negative [facility] (ASHA) Urobilinogen, ur <2.0 <2.0 mg/dL [facility] (ASHA) Nitrite, ur Negative Negative [facility] (ASHA) Leukocyte esterase, ur Negative Negative [facility] (ASHA) UA reflex comment Reflex conditions for microscopic UA and culture not met. [facility] (ASHA) Urine 03/22/2025 6:16 PM CDT 03/22/2025 6:50 PM CDT us Akbar Bhagat MD LAB MICROBIOLOGY - GENERAL ORDERABLES Final Result [facility] (ASHA) 1 [facility] [place] [address] * (ABNORMAL) Drugs of Abuse Screen, Urine without Confirmation (03/22/2025 6:16 PM CDT) Amphetamine, ur Not Detected CutOff 500ng/mL Comment: Interpretive Data - Amphetamines: Samples containing greater than 500 ng/mL d-methamphetamine or other cross-reacting amphetamine compounds are reported as positive. Amphetamine immunoassays are subject to significant false positive rates due to cross-reactivity of non-amphetamine drugs. Confirmatory testing required for definitive results. Current Interpretive Data was last reviewed 2023. Barbiturates, ur Not Detected CutOff 200ng/mL [facility] (ASHA) Comment: Interpretive Data - Barbiturates: Samples containing greater than 200 ng/mL secobarbital or other cross-reacting barbiturate compounds are reported as positive. False positive and false negative results are possible. Confirmatory testing required for definitive results. Current Interpretive Data was last reviewed 2023. Benzodiazepines, ur Screen Positive, presumptive (A) CutOff 100ng/mL [facility] (ASHA) Comment: Interpretive Data - Benzodiazepines: Samples containing greater than 100 ng/mL nordiazepam or other cross-reacting compounds are reported as positive. False positive and false negative results are possible. Confirmatory testing required for definitive results. Current Interpretive Data was last reviewed 2023. Cannabinoids, ur Screen Positive, presumptive (A) CutOff 50 ng/mL [facility] (ASHA) Comment: Interpretive Data - Cannabinoids: Samples containing greater than 50 ng/mL delta-9 THC -COOH or other cross- reacting compounds are reported as positive. False positive and false negative results are possible. Confirmatory testing required for definitive results. Current Interpretive Data was last reviewed 2023. Cocaine, ur Screen Positive, presumptive (A) CutOff 150ng/mL [facility] (ASHA) Comment: Interpretive Data - Cocaine: Samples containing greater than 150 ng/mL benzoylecgonine or other cross- reacting compounds are reported as positive. False positive and false negative results are possible. Confirmatory testing required for definitive results. Current Interpretive Data was last reviewed 2023. Fentanyl, Ur Not Detected CutOff 5 ng/mL [facility] (ASHA) Comment: Interpretive Data - Fentanyl: Samples containing greater than 5 ng/mL norfentanyl, fentanyl, or other cross-reacting fentanyl compounds are reported as positive. False positive and false negative results are possible. Confirmatory testing required for definitive results. Current Interpretive Data was last reviewed 2023. Methadone, ur Not Detected CutOff 300ng/mL [facility] (ASHA) Comment: Interpretive Data - Methadone: Samples containing greater than 300 ng/mL d,l-methadone or other cross-reacting compounds are reported as positive. False positive and false negative results are possible. Confirmatory testing required for definitive results. Current Interpretive Data was last reviewed 2023. Opiates, ur Screen Positive, presumptive (A) CutOff 300ng/mL [facility] (ASHA) Comment: Interpretive Data - Opiates: Samples containing greater than 300 ng/mL morphine or other cross-reacting compounds are reported as positive. False positive and false negative results are possible. Confirmatory testing required for definitive results. Current Interpretive Data was last reviewed 2023. Oxycodone, ur Not Detected CutOff 100ng/mL [facility] (ASHA) Comment: Interpretive Data - Oxycodone: Samples containing greater than 100 ng/mL oxycodone or other cross-reacting compounds are reported as positive. False positive and false negative results are possible. Confirmatory testing required for definitive results. Current Interpretive Data was last reviewed 2023. Phencyclidine, ur Not Detected CutOff 25 ng/mL [facility] ([place]) Comment: Interpretive Data - Phencyclidine: Samples containing greater than 25 ng/mL phencyclidine or other cross-reacting compounds are reported as positive. False positive and false negative results are possible. Confirmatory testing required for definitive results. Current Interpretive Data was last reviewed 2023. Urine Creatinine 162 mg/dL [facility] (ASHA) Comment: Interpretive Data Urine Creatinine: < 10 mg/dL is extremely dilute = or > 10 but < 20 mg/dL is dilute = or > 20 mg/dL is normal Current Interpretive Data was last revised on 2017. Urine 03/22/2025 6:16 PM CDT 03/22/2025 6:50 PM CDT Narrative [facility] ([place]) - 03/22/2025 7:13 PM CDT Drug of Abuse screening is performed by immunoassay for medical purposes only. This is not to be used for Pain Management purposes. Frank Trujillo MD LAB URINE ORDERABLES Final Re sult [facility] ([place]) 1 [facility] Department [place] [address] * US Carotids Duplex Bilateral (03/22/2025 5:31 PM CDT) Anatomical Region Laterality Modality Vascular Bilateral Ultrasound 03/22/2025 7:27 PM CDT Narrative 03/22/2025 7:29 PM CDT EXAM DESCRIPTION: US CAROTIDS DUPLEX BILATERAL REASON FOR STUDY: Personal history of TIA and Cerebral Infarction without Residual Deficits TECHNIQUE: Cronin scale, color Doppler and spectral Doppler imaging were performed. Velocity criteria are extrapolated from diameter as defined by the Society of Radiologists in Ultrasound Consensus Conference. All velocity measurements are in cm/sec. COMPARISON: None FINDINGS: Right: Mild intimal thickening and plaque are seen. Distal CCA Peak Systolic Velocity: 71.4 Distal CCA End Diastolic Velocity: 20 Peak ICA Systolic Velocity: 79 ICA End Diastolic Velocity: 27.4 Peak ICA/CCA Systolic Ratio: 1.1 Right Vertebral Artery: Antegrade direction of flow. Left: Mild intimal thickening and plaque are seen. Distal CCA Peak Systolic Velocity: 58.4 Distal CCA End Diastolic Velocity: 14.7 Peak ICA Systolic Velocity: 93.1 ICA End Diastolic Velocity: 34.8 Peak ICA/CCA Systolic Ratio: 1.6 Left Vertebral Artery: Antegrade direction of flow. IMPRESSION: 1. Velocities correspond to a less than 50 percent diameter stenosis of the right ICA. 2. Velocities correspond to a less than 50 percent diameter stenosis of the left ICA. 3. Antegrade direction of flow of the bilateral vertebral arteries. REFERENCE: Consensus Panel Cronin-Scale and Doppler US Criteria for Diagnosis of ICA Stenosis. No stenosis: ICA PSV <125*, 0 percent plaque, ICA/CCA PSV Ratio <2.0, ICA EDV <40*. <50 percent stenosis: ICA PSV <125*, <50 percent plaque, ICA/CCA PSV Ratio <2.0, ICA EDV <40*. 50-69 percent stenosis: ICA PSV 125-230*, >=50 percent plaque, ICA/CCA PSV Ratio 2.0-4.0, ICA EDV 40-100*. >=70 percent but less than near occlusion >230, >=50 percent plaque, ICA/CAA PSV Ratio >4.0, ICA EDV >100*. *cm/sec Plaque estimate (diameter reduction) with cronin-scale and color Doppler US. RSNA 2002 THIS IS AN ELECTRONICALLY VERIFIED FINAL REPORT 03/22/2025 7:29 PM - Electronically signed by Adam Wong M.D. KT: KT Report ID: [id number] Reading Location: [id number] Procedure Note Adam Wong MD - 03/22/2025 EXAM DESCRIPTION: US CAROTIDS DUPLEX BILATERAL REASON FOR STUDY: Personal history of TIA and Cerebral Infarctionwithout Residual Deficits TECHNIQUE: Cronin scale, color Doppler and spectral Doppler imaging were performed. Velocity criteria are extrapolated from diameter as defined bythe Society of Radiologists in Ultrasound Consensus Conference. All velocity measurements are in cm/sec. COMPARISON: None FINDINGS: Right: Mild intimal thickening and plaque are seen. Distal CCA Peak Systolic Velocity: 71.4 Distal CCA End Diastolic Velocity: 20 Peak ICA Systolic Velocity: 79 ICA End Diastolic Velocity: 27.4 Peak ICA/CCA Systolic Ratio: 1.1 Right Vertebral Artery: Antegrade direction of flow. Left: Mild intimal thickening and plaque are seen. Distal CCA Peak Systolic Velocity: 58.4 Distal CCA End Diastolic Velocity: 14.7 Peak ICA Systolic Velocity: 93.1 ICA End Diastolic Velocity: 34.8 Peak ICA/CCA Systolic Ratio: 1.6 Left Vertebral Artery: Antegrade direction of flow. IMPRESSION: 1. Velocities correspond to a less than 50 percent diameter stenosis ofthe right ICA. 2. Velocities correspond to a less than 50 percent diameter stenosis ofthe left ICA. 3. Antegrade direction of flow of the bilateral vertebral arteries. REFERENCE: Consensus Panel Cronin-Scale and Doppler US Criteria forDiagnosis of ICA Stenosis. No stenosis: ICA PSV <125*, 0 percent plaque, ICA/CCA PSV Ratio <2.0, ICAEDV <40*. <50 percent stenosis: ICA PSV <125*, <50 percent plaque, ICA/CCA PSV Ratio <2.0, ICA EDV <40*. 50-69 percent stenosis: ICA PSV 125-230*, >=50 percent plaque, ICA/CCA PSV Ratio 2.0-4.0, ICA EDV 40-100*. >=70 percent but less than near occlusion >230, >=50 percent plaque,ICA/CAA PSV Ratio >4.0, ICA EDV >100*. *cm/sec Plaque estimate (diameter reduction) with cronin-scale and color DopplerUS. RSNA 2002 THIS IS AN ELECTRONICALLY VERIFIED FINAL REPORT 03/22/2025 7:29 PM - Electronically signed by Adam Wong M.D. KT: KT Report ID: [id number] Reading Location: [id number] us Ramirez Lew NP IMG US PROCEDURES Final Res ult * MRI Brain WO Contrast (03/22/2025 1:56 PM CDT) Anatomical Region Laterality Modality Head and Neck N/A Magnetic Resonan ce 03/22/2025 2:13 PM CDT Narrative 03/22/2025 2:29 PM CDT EXAM DESCRIPTION: MRI BRAIN WO CONTRAST REASON FOR STUDY: Stroke, follow up, Possible stroke Pt came into the ED this morning for nausea and vomiting. Pt is fatigued, having weakness and difficulty directions. TECHNIQUE: Multiplanar imaging includes non-contrasted T1, T2, FLAIR, and diffusion with ADC map sequences. Additional sequence(s) sensitive to blood products. Images stored on PACS. COMPARISON: Same day head CT FINDINGS: No acute infarction. No evidence of acute or chronic hemorrhage identified. No mass effect, mass or midline shift. The ventricles are normal in size. Brain volume appears within normal limits for patient age. Igxn-vd-rgosydoh T2 FLAIR hyperintensity in the periventricular and subcortical white matter is nonspecific but can be seen in the setting of chronic small vessel ischemic disease. There is a chronic lacunar infarct of the right thalamus. Prominent perivascular spaces of the centrum semiovale and basal ganglia. The major flow voids are within normal limits. The pituitary gland is within normal limits for patient age. The calvarium is unremarkable. The orbits are unremarkable. The paranasal sinuses are well aerated. The mastoid air cells are well aerated. IMPRESSION: 1. No acute infarction. 2. Cerebral white matter FLAIR hyperintensity is nonspecific but most likely represents wcrn-zs-cmlevvti chronic small vessel ischemic disease. Chronic lacunar infarct of the right medial thalamus. THIS IS AN ELECTRONICALLY VERIFIED FINAL REPORT 03/22/2025 2:29 PM - Electronically signed by Torres Sarabia M.D. MM: MM Report ID: [id number] Reading Location: [id number] Procedure Note Torres Sarabia MD - 03/22/2025 EXAM DESCRIPTION: MRI BRAIN WO CONTRAST REASON FOR STUDY: Stroke, follow up, Possible stroke Pt came into the ED this morning for nausea and vomiting. Pt is fatigued, having weakness and difficulty directions. TECHNIQUE: Multiplanar imaging includes non-contrasted T1, T2, FLAIR, and diffusion with ADC map sequences. Additional sequence(s) sensitive toblood products. Images stored on PACS. COMPARISON: Same day head CT FINDINGS: No acute infarction. No evidence of acute or chronic hemorrhageidentified. No mass effect, mass or midline shift. The ventricles are normal in size. Brain volume appears within normallimits for patient age. Wjjy-oh-sdtsjput T2 FLAIR hyperintensity in the periventricular and subcortical white matter is nonspecific but can beseen in the setting of chronic small vessel ischemic disease. There is a chronic lacunar infarct of the right thalamus. Prominent perivascular spaces ofthe centrum semiovale and basal ganglia. The major flow voids are withinnormal limits. The pituitary gland is within normal limits for patient age. The calvarium is unremarkable. The orbits are unremarkable. Theparanasal sinuses are well aerated. The mastoid air cells are well aerated. IMPRESSION: 1. No acute infarction. 2. Cerebral white matter FLAIR hyperintensity is nonspecific but mostlikely represents suvo-pa-vfsgfift chronic small vessel ischemic disease.Chronic lacunar infarct of the right medial thalamus. THIS IS AN ELECTRONICALLY VERIFIED FINAL REPORT 03/22/2025 2:29 PM - Electronically signed by Torres Sarabia M.D. MM: MM Report ID: [id number] Reading Location: [id number] Akbar Bhagat MD [facility] MRI PROCEDURES Final Result * TRANSTHORACIC ECHO (TTE) COMPLETE W DOPPLER/CF WO CONTRAST W BUBBLE (03/22/2025 10:53 AM CDT) EF Mod BP 60 % CONS SCIMAGE Anatomical Region Laterality Modality Ultrasound 03/22/2025 10:3 2 AM CDT Narrative 03/22/2025 1:40 PM CDT [address] [place] [address] Echocardiogram Report Patient Name: AMADOU NIEVES : 1965 Study Date: 03/22/2025 10:32:49 AM Gender: M Tech: REFUGIO Location: [id number] Ref Provider: AKBAR BHAGAT Height(Cm): BSA: Weight(Kg): Quality: Adequate Order Provider: AKBAR BHAGAT PROCEDURES: Echocardiographic Report: Transthoracic echocardiogram with 2D, M-Mode, and color Doppler examination with saline contrast study. INDICATIONS: Stroke. MEASUREMENTS: 2D/MM Value Range Doppler Value Range EF Teich MM 60.0 % [ 52.0 - 72.0 ] JANINA Vmax 2.61 cm2 EF Mod BP 60 % [ 52 - 72 ] AV Mean PG 5 mmHg LVIDd MM 6.30 cm [ 4.20 - 5.80 ] AV Peak Taz 1.55 m/s [ 1.00 - 1.70 ] LVIDs MM 4.20 cm [ 2.50 - 4.00 ] AV VTI 27.33 cm LVPWd MM 1.60 cm [ 0.60 - 1.00 ] LVOT Diam 1.94 cm IVSd MM 1.10 cm [ 0.60 - 1.00 ] LVOT Peak Taz 1.37 m/s [ 0.70 - 1.10 ] LVOT VTI 26.66 cm MV E Peak Taz 0.74 m/s [ 0.60 - 1.30 ] MV A Peak Taz 0.81 m/s [ 1.00 - 1.20 ] MV Mean PG 2 mmHg MV PHT 62 msec [ 20 - 100 ] MVA 3.60 MV Decel Time 212 msec [ 104 - 258 ] PV Peak Taz 0.66 m/s [ 0.40 - 0.80 ] RVSP 8.00 mmHg [ 10.00 - 36.00 ] E` 0.07 m/s E/E` 10.27 [ <= 10.00 ] PA Pressure 8.00 mmHg [ 10.00 - 36.00 ] 2D/MM Value Range Doppler Value Range - FINDINGS: Atrial Septum: Normal atrial septum. Saline contrast study performed without evidence of right to left shunt. Left Ventricle: Normal left ventricular systolic function with no focal wall motion abnormalities. Normal left ventricular size. Mild concentric left ventricular hypertrophy. Impaired diastolic relaxation Grade I. Ejection fraction is measured at 60 %. Left Atrium: The left atrium is normal in size. Right Ventricle: Normal right ventricular size. Normal right ventricular systolic function. Right Atrium: The right atrium is normal in size. Aortic Valve: Normal structure of the aortic valve. No evidence of hemodynamically significant aortic stenosis by Doppler. Trace aortic valve regurgitation. Mitral Valve: Normal structure of the mitral valve. Trivial regurgitation of the mitral valve. Pulmonic Valve: Normal structure of the pulmonic valve. No evidence of pulmonic regurgitation. Tricuspid Valve: Normal structure of the tricuspid valve. Normal right ventricular systolic pressure. Trivial regurgitation in the tricuspid valve. Pericardium: Normal pericardium with no significant pericardial effusion. Aorta: Normal aortic root. Ascending aorta is normal. Descending aorta is normal. IVC: Normal size and normal respiratory collapse consistent with normal right atrial pressure (<5 mmHg). Pulmonary Artery: Pulmonary artery not well visualized. CONCLUSIONS: Normal left ventricular systolic function with no focal wall motion abnormalities. Normal left ventricular size. Mild concentric left ventricular hypertrophy. Impaired diastolic relaxation Grade I. Ejection fraction is measured at 60 %. Normal right ventricular size. Normal right ventricular systolic function. Normal atrial septum. Saline contrast study performed without evidence of right to left shunt. Normal structure of the mitral valve. Trivial regurgitation of the mitral valve. Normal structure of the aortic valve. No evidence of hemodynamically significant aortic stenosis by Doppler. Trace aortic valve regurgitation. Normal structure of the tricuspid valve. Normal right ventricular systolic pressure. Trivial regurgitation in the tricuspid valve. Normal pericardium with no significant pericardial effusion. Electronically Signed By: Nathaly Reynolds MD 03/22/2025 1:39:47 PM CDT Procedure Note Nathaly Reynolds MD - 03/22/[address] [place] [address] Echocardiogram Report Patient Name: AMADOU NIEVES : 1965 Study Date: 03/22/2025 10:32:49 AM Gender: M Tech: REFUGIO Location: [place] [id number] Ref Provider: AKBAR BHAGAT Height(Cm): BSA: Weight(Kg): Quality: Adequate Order Provider: AKBAR BHAGAT PROCEDURES: Echocardiographic Report: Transthoracic echocardiogram with 2D, M-Mode, and color Dopplerexamination with saline contrast study. INDICATIONS: Stroke. MEASUREMENTS: 2D/MM Value Range Doppler ValueRange EF Teich MM 60.0 % [ 52.0 - 72.0 ] JANINA Vmax 2.61 cm2 EF Mod BP 60 % [ 52 - 72 ] AV Mean PG 5 mmHg LVIDd MM 6.30 cm [ 4.20 - 5.80 ] AV Peak Taz 1.55 m/s[ 1.00 - 1.70 ] LVIDs MM 4.20 cm [ 2.50 - 4.00 ] AV VTI 27.33 cm LVPWd MM 1.60 cm [ 0.60 - 1.00 ] LVOT Diam 1.94 cm IVSd MM 1.10 cm [ 0.60 - 1.00 ] LVOT Peak Taz 1.37 m/s[ 0.70 - 1.10 ] LVOT VTI 26.66 cm MV E Peak Taz 0.74 m/s [ 0.60 - 1.30 ] MV A Peak Taz 0.81 m/s [ 1.00 - 1.20 ] MV Mean PG 2 mmHg MV PHT 62 msec [ 20 - 100 ] MVA 3.60 MV Decel Time 212 msec [ 104 - 258 ] PV Peak Taz 0.66 m/s [ 0.40 - 0.80 ] RVSP 8.00 mmHg [ 10.00 - 36.00 ] E` 0.07 m/s E/E` 10.27 [ <= 10.00 ] PA Pressure 8.00 mmHg [ 10.00 - 36.00 ] 2D/MM Value Range Doppler ValueRange - FINDINGS: Atrial Septum: Normal atrial septum. Saline contrast study performed without evidence ofright to left shunt. Left Ventricle: Normal left ventricular systolic function with no focal wall motionabnormalities. Normal left ventricular size. Mild concentric left ventricular hypertrophy.Impaired diastolic relaxation Grade I. Ejection fraction is measured at 60 %. Left Atrium: The left atrium is normal in size. Right Ventricle: Normal right ventricular size. Normal right ventricular systolicfunction. Right Atrium: The right atrium is normal in size. Aortic Valve: Normal structure of the aortic valve. No evidence of hemodynamicallysignificant aortic stenosis by Doppler. Trace aortic valve regurgitation. Mitral Valve: Normal structure of the mitral valve. Trivial regurgitation of the mitralvalve. Pulmonic Valve: Normal structure of the pulmonic valve. No evidence of pulmonicregurgitation. Tricuspid Valve: Normal structure of the tricuspid valve. Normal right ventricular systolicpressure. Trivial regurgitation in the tricuspid valve. Pericardium: Normal pericardium with no significant pericardial effusion. Aorta: Normal aortic root. Ascending aorta is normal. Descending aorta isnormal. IVC: Normal size and normal respiratory collapse consistent with normal rightatrial pressure (<5 mmHg). Pulmonary Artery: Pulmonary artery not well visualized. CONCLUSIONS: Normal left ventricular systolic function with no focal wall motionabnormalities. Normal left ventricular size. Mild concentric left ventricular hypertrophy.Impaired diastolic relaxation Grade I. Ejection fraction is measured at 60 %. Normal right ventricular size. Normal right ventricular systolicfunction. Normal atrial septum. Saline contrast study performed without evidence ofright to left shunt. Normal structure of the mitral valve. Trivial regurgitation of the mitralvalve. Normal structure of the aortic valve. No evidence of hemodynamicallysignificant aortic stenosis by Doppler. Trace aortic valve regurgitation. Normal structure of the tricuspid valve. Normal right ventricular systolicpressure. Trivial regurgitation in the tricuspid valve. Normal pericardium with no significant pericardial effusion. Electronically Signed By: Nathaly Reynolds MD 03/22/2025 1:39:47 PM CDT Akbar Bhagat MD CV ECHO PROCEDURES Final Result * ABO / Rh Confirmation Testing (03/22/2025 10:10 AM CDT) ABO/Rh Confirmation O Positive [facility] Blood 03/22/2025 10:1 0 AM CDT 03/22/2025 10:14 AM CDT us Frank Trujillo MD LAB BLOOD ORDERABLES Final Re sult Performing Organization Address City/[facility]/ZIP Co de Phone Number [facility] [place]) 1 [facility] [employer] [place] [place] [address] AM[facility] * Ethanol (03/22/2025 10:10 AM CDT) Ethanol <10 <=10 mg/dL Comment: Interpretive Data Legal limit of intoxication > or = 80 mg/dL Levels > or = 400 mg/dL are potentially TOXIC. Current interpretive data was last revised on 2018. Blood 03/22/2025 10:1 0 AM CDT 03/22/2025 10:14 AM CDT us Akbar Bhagat MD LAB BLOOD ORDERABLE S Final Result Performing Organization Address [facility] Co de Phone Number [facility] ([place]) 1 [facility] [employer] [place] [place] [address] * CT Abdomen Pelvis W Contrast (03/22/2025 7:09 AM CDT) Anatomical Region Laterality Modality Body N/A Computed Tomogra phy 03/22/2025 7:36 AM CDT Narrative 03/22/2025 7:52 AM CDT EXAM DESCRIPTION: CT ABDOMEN PELVIS W CONTRAST REASON FOR STUDY: Abdominal pain, acute, nonlocalized Nausea and vomiting TECHNIQUE: CT scan of the abdomen and pelvis performed with intravenous and without oral contrast using helical scanning technique with dynamic intravenous contrast injection. Reconstructed coronal and sagittal MPR images reviewed. All images stored on PACS. Automated exposure control was used as a dose optimization technique for this examination. CONTRAST TYPE/DOSE: 75mL of IOVERSOL 350 MG IODINE/ML INTRAVENOUS SYRINGE injected via intravenous COMPARISON: None FINDINGS: LOWER CHEST: There is bibasilar subsegmental atelectasis. There are a few opacities in the medial basilar portion of the right lower lobe which could represent atelectasis scarring, however pneumonia can not be excluded. LIVER: Normal size. No identified cystic or solid masses. GALLBLADDER: No stones identified. No wall thickening or inflammatory changes. BILE DUCTS: No intrahepatic or extrahepatic ductal dilatation. SPLEEN: Normal size. No focal lesions. PANCREAS: No identified cystic or solid masses. No significant calcifications. No adjacent inflammation or peripancreatic fluid collections. Pancreatic duct not dilated. ADRENALS: Normal. KIDNEYS/URINARY TRACT: In the interpolar region of the left kidney there is an indeterminate 10 mm low-attenuation lesion. There are multiple hyperdensities in the kidneys bilaterally measuring up to 4 mm which could represent nonobstructing calculi versus early excretion of contrast. There is no hydronephrosis or hydroureter. Urinary bladder is unremarkable. GI: There is a tiny hiatal hernia. No dilated bowel loops. No obvious wall thickening. Normal appendix. No significant diverticular disease. PERITONEUM: No ascites or free air. RETROPERITONEUM: No mass or adenopathy. REPRODUCTIVE: No significant abnormality. VASCULATURE: No abdominal aortic aneurysm. MUSCULOSKELETAL: There is no suspicious osseous lesion. OTHER: No other abnormality. IMPRESSION: No acute findings in the abdomen or pelvis. Indeterminate 10 mm low-attenuation lesion in the interpolar region of the left kidney which could represent a small cyst with artifactually elevated density. Recommend follow-up renal ultrasound. Multiple hyperdensities in the kidneys bilaterally measuring up to 4 mm which could represent nonobstructing calculi versus early excretion of contrast. There are a few opacities in the medial basilar portion of the right lower lobe which could represent atelectasis scarring, however pneumonia can not be excluded. THIS IS AN ELECTRONICALLY VERIFIED FINAL REPORT 03/22/2025 7:52 AM - Electronically signed by Kb Garrido M.D. AM: AM Report ID: [id number] Reading Location: [id number] Procedure Note Kb Garrido MD - 03/22/2025 EXAM DESCRIPTION: CT ABDOMEN PELVIS W CONTRAST REASON FOR STUDY: Abdominal pain, acute, nonlocalized Nausea and vomiting TECHNIQUE: CT scan of the abdomen and pelvis performed with intravenousand without oral contrast using helical scanning technique with dynamic intravenous contrast injection. Reconstructed coronal and sagittal MPRimages reviewed. All images stored on PACS. Automated exposure control was usedas a dose optimization technique for this examination. CONTRAST TYPE/DOSE: 75mL of IOVERSOL 350 MG IODINE/ML INTRAVENOUSSYRINGE injected via intravenous COMPARISON: None FINDINGS: LOWER CHEST: There is bibasilar subsegmental atelectasis. There are afew opacities in the medial basilar portion of the right lower lobe whichcould represent atelectasis scarring, however pneumonia can not be excluded. LIVER: Normal size. No identified cystic or solid masses. GALLBLADDER: No stones identified. No wall thickening or inflammatory changes. BILE DUCTS: No intrahepatic or extrahepatic ductal dilatation. SPLEEN: Normal size. No focal lesions. PANCREAS: No identified cystic or solid masses. No significant calcifications. No adjacent inflammation or peripancreatic fluidcollections. Pancreatic duct not dilated. ADRENALS: Normal. KIDNEYS/URINARY TRACT: In the interpolar region of the left kidney thereis an indeterminate 10 mm low-attenuation lesion. There are multiple hyperdensities in the kidneys bilaterally measuring up to 4 mm which could represent nonobstructing calculi versus early excretion of contrast.There is no hydronephrosis or hydroureter. Urinary bladder is unremarkable. GI: There is a tiny hiatal hernia. No dilated bowel loops. No obviouswall thickening. Normal appendix. No significant diverticular disease. PERITONEUM: No ascites or free air. RETROPERITONEUM: No mass or adenopathy. REPRODUCTIVE: No significant abnormality. VASCULATURE: No abdominal aortic aneurysm. MUSCULOSKELETAL: There is no suspicious osseous lesion. OTHER: No other abnormality. IMPRESSION: No acute findings in the abdomen or pelvis. Indeterminate 10 mm low-attenuation lesion in the interpolar region of the left kidney which could represent a small cyst with artifactually elevated density. Recommend follow-up renal ultrasound. Multiple hyperdensities in the kidneys bilaterally measuring up to 4 mmwhich could represent nonobstructing calculi versus early excretion ofcontrast. There are a few opacities in the medial basilar portion of the right lower lobe which could represent atelectasis scarring, however pneumonia can notbe excluded. THIS IS AN ELECTRONICALLY VERIFIED FINAL REPORT 03/22/2025 7:52 AM - Electronically signed by Kb Garrido M.D. AM: AM Report ID: [id number] Reading Location: [id number] us Akbar Bhagat MD IMG CT PROCEDURES F inal Result * XR Chest 1 Vw Portable (03/22/2025 6:28 AM CDT) Anatomical Region Laterality Modality Body, Chest N/A Computed Radiogr aphy 03/22/2025 6:32 AM CDT Narrative 03/22/2025 6:34 AM CDT EXAM DESCRIPTION: XR CHEST 1 VIEW REASON FOR STUDY: r/o infxn presents with abdominal pain, nausea, and vomiting. Onset overnight. Pain primarily epigastric. TECHNIQUE: AP portable upright radiographic view(s) of the chest. COMPARISON: 0.8 2021 FINDINGS: LUNGS: There is minimal opacity in the left base along the left heart border, which could reflect mild scarring/atelectasis or minimal developing airspace disease. No effusion or pneumothorax. HEART/MEDIASTINUM: Cardiac silhouette and mediastinal contours are within normal limits. Atherosclerotic calcification of the thoracic aorta. LINES/TUBES: None. BONES: No acute osseous abnormality. IMPRESSION: Minimal opacity in the left base along the left heart border. This could reflect scarring/atelectasis. A component of developing airspace disease is not excluded. Correlate clinically follow-up recommended. THIS IS AN ELECTRONICALLY VERIFIED FINAL REPORT 03/22/2025 6:34 AM - Electronically signed by Carol Christopher M.D. TW: JADEN Report ID: [id number] Reading Location: [id number] Procedure Note Carol Christopher MD - 03/22/2025 EXAM DESCRIPTION: XR CHEST 1 VIEW REASON FOR STUDY: r/o infxn presents with abdominal pain, nausea, and vomiting. Onset overnight. Pain primarily epigastric. TECHNIQUE: AP portable upright radiographic view(s) of the chest. COMPARISON: 0.8 2021 FINDINGS: LUNGS: There is minimal opacity in the left base along the left heartborder, which could reflect mild scarring/atelectasis or minimal developingairspace disease. No effusion or pneumothorax. HEART/MEDIASTINUM: Cardiac silhouette and mediastinal contours are within normal limits. Atherosclerotic calcification of the thoracic aorta. LINES/TUBES: None. BONES: No acute osseous abnormality. IMPRESSION: Minimal opacity in the left base along the left heart border. This could reflect scarring/atelectasis. A component of developing airspace diseaseis not excluded. Correlate clinically follow-up recommended. THIS IS AN ELECTRONICALLY VERIFIED FINAL REPORT 03/22/2025 6:34 AM - Electronically signed by Carol Christopher M.D. TW: JADEN Report ID: [id number] Reading Location: [id number] us Frank Trujillo MD IMG XR PROCEDURES Final Resul t * Troponin T high-sensitivity (03/22/2025 5:59 AM CDT) Trop T hs <6 <=22 ng/L Comment: Interpretive Data For further hscTnT resources including the diagnostic algorithm and an aid in interpretation, copy and paste this link: [email or web address].testcatalog.org/show/hsTrop Current Interpretive Data last revised 2020. Blood 03/22/2025 5:59 AM CDT 03/22/2025 6:04 AM CDT us Frank Trujillo MD LAB BLOOD ORDERABLES Final Re sult [facility] ([place]) 1 [facility] Department of Laboratories [place], [place] [id number] * ABO/Rh (03/22/2025 5:59 AM CDT) ABO/Rh O Positive Blood 03/22/2025 5:59 AM CDT 03/22/2025 6:03 AM CDT Narrative [facility] ([place]) - 03/22/2025 8:23 AM CDT Has the patient had Daratumumab or Isatuximab in the past 6 months?->Unknown Frank Trujillo MD LAB BLOOD BANK TEST ORDERABLE S Final Result Performing Organization Address [facility] Co de Phone Number [place] ([place]) 1 [facility] [employer] [place] [place] [address] * aPTT (03/22/2025 5:59 AM CDT) aPTT 38 28 - 38 sec [facility]RAVAN [facility] ([place]) Comment: Interpretive Data Heparin therapeutic range: 66.0 - 100.0 seconds. Range based on correlation with therapeutic heparin activity range of 0.3 - 0.7 Units/mL. Current interpretive data was last revised on 2023. Blood 03/22/2025 5:59 AM CDT 03/22/2025 6:03 AM CDT Frank Trujillo MD LAB BLOOD ORDERABLES Final Re sult Performing Organization Address [facility] de Phone Number [facility] ([place]) 1 [facility] [employer] [place] [place] [address] * Protime-INR (03/22/2025 5:59 AM CDT) PT 10.9 9.7 - 13.0 sec [facility] ([place]) INR 1.01 0.90 - 1.20 [facility] ([place] Comment: Interpretive data Oral anticoagulant therapeutic ranges: Venous thromboembolism prophylaxis or treatment: 2.0-3.0 CARDIOLOGY Standard range: 2.0-3.0 High-intensity range: 2.5-3.5 Refer to indication-specific guidelines for appropriate target ranges for prosthetic heart valve replacement. Current interpretive data was last revised on 2019. Blood 03/22/2025 5:59 AM CDT 03/22/2025 6:03 AM CDT Frank Trujillo MD LAB BLOOD ORDERABLES Final Re sult Performing Organization Address [facility] Co de Phone Number GUERA MosherD[place]) 1 [place] [address] * Antibody screen (03/22/2025 5:59 AM CDT) Sherice, indirect, Gel Interpretation Negative ABSC Blood 03/22/2025 5:59 AM CDT 03/22/2025 6:03 AM CDT Narrative [facility]ER[facility]herD[place]) - 03/22/2025 8:24 AM CDT Has the patient had Daratumumab or Isatuximab in the past 6 months?->Unknown us Frank Trujillo MD LAB BLOOD BANK TEST ORDERABLE S Final Result [facility]ERA MosherDUTTON) [address] [place] [address] * Lipase (03/22/2025 5:59 AM CDT) Pathologist [facility] Lipase 13 10 - 99 Units/L Blood 03/22/2025 5:59 AM CDT 03/22/2025 6:16 AM CDT us Akbar Bhagat MD LAB BLOOD ORDERABLE S Final Result [facility]ERA MosherD[place]) [address] [place] [address] * ECG 12 lead (03/22/2025 5:42 AM CDT) 03/22/2025 5:42 AM CDT Narrative [facility] - 03/22/2025 7:14 AM CDT Vent Rate: 71 bpm RR Interval: 842 msec AL Interval: 124 msec QRS Duration: 101 msec QT Interval: 414 msec QTC Interval: 436 msec P-R-T Ucon: 79 - 42 - 262 degrees IMPRESSION: SINUS RHYTHM Leftward axis Old anteroseptal ND LVH with strain by precordial voltage criteria Inferior T-wave changes, possibly from LVH with strain or ischemia No prior EKG for comparison Electronically Signed By: Dr Ely Babin us Frank Trujillo MD ECG ORDERABLES Final Result [facility] * CT Head WO Contrast (03/22/2025 4:45 AM CDT) Anatomical Region Laterality Modality Head and Neck N/A Computed Tomogra phy 03/22/2025 5:17 AM CDT Narrative 03/22/2025 5:24 AM CDT EXAM DESCRIPTION: CT HEAD WO CONTRAST REASON FOR STUDY: r/o bleed Patient presents with nausea and vomiting today. TECHNIQUE: Axial images acquired through the brain without intravenous contrast. Images stored on PACS. Automated exposure control was used as a dose optimization technique for this examination. COMPARISON: None FINDINGS: BRAIN: There is no mass effect or midline shift. No hydrocephalus. There is subtle hypoattenuation involving the head of the right caudate nucleus, age indeterminate. There is also some subtle hypoattenuation within the right basal ganglia. There is no acute intracranial hemorrhage. Atherosclerotic vascular calcifications are present. There is mild hypoattenuation in the periventricular and subcortical white matter. This is somewhat asymmetric in the right frontal lobe adjacent to the anterior horn of the right lateral ventricle. EXTRA-AXIAL SPACES: No fluid collections. No masses. CALVARIUM: There is no depressed calvarial fracture. SINUSES/MASTOIDS: The frontal sinuses are not significantly pneumatized. There is mild mucosal thickening in the ethmoid air cells. The mastoids are well aerated. ORBITS: No significant abnormality. OTHER: No other significant abnormality. IMPRESSION: 1. No acute intracranial hemorrhage. 2. Hypo attenuating areas within the head of the right caudate nucleus and the right basal ganglia. There is also some asymmetry of hypoattenuation in periventricular white matter of the right frontal lobe adjacent to the anterior horn of the right lateral ventricle. These findings are age indeterminate and could represent sequela of acute/subacute infarction. MRI recommended for further evaluation. THIS IS AN ELECTRONICALLY VERIFIED FINAL REPORT 03/22/2025 5:24 AM - Electronically signed by Carol Christopher M.D. TW: JADEN Report ID: [id number] Reading Location: [id number] Procedure Note Carol Christopher MD - 03/22/2025 EXAM DESCRIPTION: CT HEAD WO CONTRAST REASON FOR STUDY: r/o bleed Patient presents with nausea and vomiting today. TECHNIQUE: Axial images acquired through the brain without intravenous contrast. Images stored on PACS. Automated exposure control was used asa dose optimization technique for this examination. COMPARISON: None FINDINGS: BRAIN: There is no mass effect or midline shift. No hydrocephalus.There is subtle hypoattenuation involving the head of the right caudate nucleus,age indeterminate. There is also some subtle hypoattenuation within the right basal ganglia. There is no acute intracranial hemorrhage.Atherosclerotic vascular calcifications are present. There is mild hypoattenuation in the periventricular and subcortical white matter. This is somewhat asymmetricin the right frontal lobe adjacent to the anterior horn of the right lateral ventricle. EXTRA-AXIAL SPACES: No fluid collections. No masses. CALVARIUM: There is no depressed calvarial fracture. SINUSES/MASTOIDS: The frontal sinuses are not significantly pneumatized. There is mild mucosal thickening in the ethmoid air cells. The mastoidsare well aerated. ORBITS: No significant abnormality. OTHER: No other significant abnormality. IMPRESSION: 1. No acute intracranial hemorrhage. 2. Hypo attenuating areas within the head of the right caudate nucleusand the right basal ganglia. There is also some asymmetry of hypoattenuationin periventricular white matter of the right frontal lobe adjacent to the anterior horn of the right lateral ventricle. These findings are age indeterminate and could represent sequela of acute/subacute infarction.MRI recommended for further evaluation. THIS IS AN ELECTRONICALLY VERIFIED FINAL REPORT 03/22/2025 5:24 AM - Electronically signed by Carol Christopher M.D. TW: JADEN Report ID: [id number] Reading Location: [id number] us Frank Trujillo MD IMG CT PROCEDURES Final Resul t * eGFR (03/22/2025 2:24 AM CDT) eGFR 81 >=60 mL/min/1. 73 m2 Comment: Interpretive Data Reference Interval Normal >/= 90 mL/min/1.73m2 Mildly decreased* 60 - 89 mL/min/1.73m2 Mildly to moderately decreased 45 - 59 mL/min/1.73m2 Moderately to severely decreased 30 - 44 mL/min/1.73m2 Severely decreased 15 - 29 mL/min/1.73m2 Kidney Failure < 15 mL/min/1.73m2 *Relative to young adult level Estimated glomerular filtration rate is determined by the 2020 CKD-EPI equation recommended by the [employer] (A Unifying Approach to GFR Estimation: Recommendations of the NKF-ASK Task Force on Reassessing the Inclusion of Race in Diagnosing Kidney Disease, JASN 2020). The CKD-EPI equation should not be used for patients with unstable renal function and has not been validated in children and those over 70. Current interpretive data was last reviewed 2021. Blood 03/22/2025 2:24 AM CDT 03/22/2025 2:27 AM CDT us Akbar Bhagat MD LAB BLOOD ORDERABLE S Final Result [facility] Department of Laboratories [place], [place] [id number] * Differential, auto (03/22/2025 2:24 AM CDT) Neutrophil abs 4.46 1.50 - 6.50 K/cumm Imm gran abs 0.01 0.00 - 0.10 K/cumm [facility] Lymphocyte abs 1.33 0.80 - 3.30 K/cumm [facility] Monocyte abs 0.44 0.20 - 0.80 K/cumm [facility] Eosinophil abs 0.00 0.00 - 0.50 K/cumm [facility] Basophil abs 0.04 0.00 - 0.10 K/cumm [facility] Neutrophil pct 71.0 % [facility] Comment: Interpretive Data Percent cell count reference ranges are not reported, since discordance with absolute values may lead to misinterpretation of CBC data. Current Interpretive Data was last revised on 2018. Imm gran pct 0.2 % [facility] Comment: Interpretive Data Percent cell count reference ranges are not reported, since discordance with absolute values may lead to misinterpretation of CBC data. Current Interpretive Data was last revised on 2018. Lymphocyte pct 21.2 % [facility] Comment: Interpretive Data Percent cell count reference ranges are not reported, since discordance with absolute values may lead to misinterpretation of CBC data. Current Interpretive Data was last revised on 2018. Monocyte pct 7.0 % [facility] Comment: Interpretive Data Percent cell count reference ranges are not reported, since discordance with absolute values may lead to misinterpretation of CBC data. Current Interpretive Data was last revised on 2018. Eosinophil pct 0.0 % [facility] Comment: Interpretive Data Percent cell count reference ranges are not reported, since discordance with absolute values may lead to misinterpretation of CBC data. Current Interpretive Data was last revised on 2018. Basophil pct 0.6 % [facility] Comment: Interpretive Data Percent cell count reference ranges are not reported, since discordance with absolute values may lead to misinterpretation of CBC data. Current Interpretive Data was last revised on 2018. Blood 03/22/2025 2:24 AM CDT 03/22/2025 2:27 AM CDT us Akbar Bhagat MD LAB BLOOD ORDERABLE S Final Result [facility] Department [place] [address] * CBC with auto differential (03/22/2025 2:24 AM CDT) WBC 6.28 3.80 - 9.90 K/cumm Hgb 15.4 13.0 - 17.5 g/dL [facility] Hct 44.4 38.9 - 50.3 % [facility] Plt 280 150 - 400 K/cumm [facility] MPV 9.9 9.1 - 12.3 fL [facility] RBC 4.71 4.30 - 5.80 M/cumm [facility] MCV 94.3 81.3 - 96.4 fL [facility] MCH 32.7 27.1 - 33.3 pg [facility] MCHC 34.7 32.3 - 35.7 g/dL [facility] RDW CV 12.9 11.1 - 14.9 % [facility] RDW SD 44.5 35.7 - 48.1 fL [facility] NRBC abs 0.00 0.00 - 0.01 K/cumm [facility] Blood Venous blood specimen / Unknown 03/22/2025 2:24 AM CDT 03/22/2025 2:27 AM CDT us Akbar Bhaagt MD LAB BLOOD ORDERABLE S Final Result [facility] Department [place] [address] * (ABNORMAL) Comprehensive metabolic panel (03/22/2025 2:24 AM CDT) Sodium 144 135 - 145 mmol/L Potassium, pl 4.3 3.3 - 4.9 mmol/L [facility] Chloride 102 97 - 110 mmol/L [facility]) CO2 26 22 - 32 mmol/L [facility] Anion gap 17(H) 2 - 15 mmol/L [facility] BUN 12 6 - 25 mg/dL [facility] Creatinine 1.06 0.80 - 1.30 mg/dL [facility] Glucose 125 70 - 199 mg/dL [facility] Comment: Interpretive Data Fasting glucose >/= 126 mg/dl is diagnostic for diabetes. Fasting is defined as no caloric intake for at least 8 hours. Fasting glucose between 100 mg/dl to 125 mg/dl is diagnostic of prediabetes. In a patient with classic symptoms of hyperglycemia or hyperglycemic crisis, a random glucose >/= 200 mg/dl is diagnostic for diabetes. In the absence of unequivocal hyperglycemia, results should be confirmed by repeat testing. The classification and Diagnosis of Diabetes Diabetes Care 202; 46: S19-S40. Current interpretive data was last revised 2022. Calcium 9.8 8.5 - 10.3 mg/dL [facility] Bilirubin, total 0.4 0.1 - 1.2 mg/dL [facility] Protein, pl 8.1 6.5 - 8.5 g/dL [facility] Albumin 4.5 3.5 - 5.0 g/dL [facility] Alk phos 99 40 - 130 Units/L [facility] ALT 22 7 - 55 Units/L [facility] AST 26 10 - 50 Units/L [facility] Comment: Hemolysis present. Results may be affected. Slightly Hemolyzed Specimen Blood Venous blood specimen / Unknown 03/22/2025 2:24 AM CDT 03/22/2025 2:27 AM CDT us Akbar Bhagat MD LAB BLOOD ORDERABLE S Final Result [facility] Department [place] [address] from Last 3 Months Insurance [facility] Advance Directives For more information, please contact: [phone] * Full Code (Latest Code Status on File) Date Activated Date Inactivated Comments 04/27/2025 1:00 AM 04/29/2025 3:47 PM * Full Code Date Activated Date Inactivated Comments 04/18/2025 11:00 PM 04/23/2025 7:32 PM * Full Code Date Activated Date Inactivated Comments 03/22/2025 8:36 AM 03/29/2025 3:37 PM Care Teams 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
--- OUTSIDE RECORDS SUMMARY | 2025-05-09 14:06 | XMS_ITS | Referral Summary ---
Author Organization [facility] Address 1 [place] [address] Care Team Providers Care Visiting Professor Name Role Phone No, Physician Primary Care Provider Encounters Date Type Department Care Team Description 05/09/2025 [facility] Post Discharge Follow up phone call [facility] 1 [place] [address] Ines Reed 05/01/2025 Results Follow-Up [facility] [employer] El[employer] Attacher at [facility] [address] [facility] [address] [place] [address] [facility] Mobile Cardiac Telemetry Event Monitor 04/26/2025 1:10 PM CDT - 04/29/2025 11:41 AM CDT Hospital Encounter [facility] 1 [place] [address] Torie Batista MD Kheirkhahan, Nazanin, MD Hypertensive urgency (Primary Dx); Alcohol withdrawal syndrome without complication (HCC); Cocaine abuse (HCC) Discharge Disposition: Discharge to home or self care 04/27/2025 Documentation [facility] Warm [facility] Off [facility] 1 [place], [place] [phone] Blanca Kay 04/23/2025 [facility] Enrollment [facility] 1 [place], [place] [phone] Sharmila Vargas 04/18/2025 2:58 PM CDT - 04/23/2025 3:27 PM CDT Hospital Encounter [facility] Medical Care 1 [place] [address] Mirella Rodríguez MD Kheirkhahan, Nazanin, MD Sargsyan, Narine, MD Epigastric pain (Primary Dx); Nausea and vomiting in adult; Alcohol use disorder; Substance use disorder; Uncontrolled hypertension Discharge Disposition: Left Against Medical Advice 04/21/2025 Documentation [facility] 1 [place], [place] [phone] Blanca Kay 04/20/2025 Documentation [facility] 1 [place], [place] [phone] Sharmila Vargas 04/09/2025 Telephone [facility] Attacher at [facility] [address] [facility] [address] [place] [phone] Daniela Linares MA 04/02/2025 Telephone [facility] Medical Group Cardiology [address] [facility] [facility] [address] [place] [address] Daniela Linares MA 03/29/2025 11:48 AM CDT - 03/29/2025 11:59 PM CDT Hospital Encounter [facility] Cardiology 1 [place] [address] PAF (paroxysmal atrial fibrillation) (HCC) Discharge Disposition: Discharge to home or self care 03/22/2025 5:15 AM CDT - 03/29/2025 11:36 AM CDT Hospital Encounter [facility] Acute Medicine 1 [place] [address] Akbar Bhagat MD Richards, John Albert Jr., Jia Manley DO Kheirkhahan, Nazanin, MD PAF (paroxysmal atrial fibrillation) (HCC) (Primary Dx); Abdominal pain; Cerebrovascular accident (CVA), unspecified mechanism (HCC); Alcohol use disorder Discharge Disposition: Discharge to home or self care 03/26/2025 Documentation [facility] 1 [place], [place] [phone] Butch Leggett 03/24/2025 Documentation [facility] 1 [place], [place] [phone] Butch Leggett from Last 3 Months Allergies Active Allergy Reactions Criticality Noted Date [...] 11/18/2024 Nausea and vomiting in adult 11/18/2024 Social History Tobacco Use Types Packs/Day Years Used Date Smoking Tobacco: Every Day Cigarettes 1.5 43 Smokeless Tobacco: Never Tobacco Cessation:Ready to Q uit: Not Asked; Counseling Given: Not Answered Alcohol Use Standard Drinks/Week Comments Yes 0 (1 standard drink = 0.6 oz pur e alcohol) daily [facility] Utilities Answer Date Recorded In the past [...] often do you attend chur ch or taoism services? 1 to 4 times per year 04/27/2025 Do you belong to any clubs o r organizations such as druze groups, unions, fraternal or athletic groups, or [...] any time in the past 12 m [facility], were you homeless or living in a skilled nursing (including now)? No 04/27/2025 Personal Safety Answer Date Recorded Have you ever been in or are you currently in a harmful physical or emotional relationship or is someone making you feel afraid or unsafe? 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 73 [...] Final Resu lt [facility] ([place]) [address] [facility] [place] [address] * Differential, auto (04/29/2025 7:17 AM CDT) [...] Neutrophil pct 44.8 % [facility] ([place]) Comment: Interpretive Data Percent cell count reference ranges are not reported, since discordance with absolute values may lead to misinterpretation of CBC data. Current Interpretive Data was last revised on 2018. Imm gran pct 0.4 % [facility] ([place]) Comment: Interpretive Data Percent cell count reference [...] ORDERABLES Final Resu lt Performing Organization Address City/[facility]/ZIP Co de Phone Number [facility] ([place]) [address] [facility] [place] [place] [address] * (ABNORMAL) CBC with auto differential (04/29/2025 [...] ORDERABLES Final Resu lt Performing Organization Address City/[facility]/ZIP Co de Phone Number [facility] ([place]) [address] Department [place] [address] * Phosphorus (04/29/2025 7:17 AM CDT) Phosphorus, pl 3.1 2.3 - 4.5 mg/dL [facility] ([place]) Blood 04/29/2025 7:17 AM CDT 04/29/2025 7:23 AM CDT us Simon Pham MD LAB BLOOD ORDERABLES Final Resu lt [facility] ([place]) [address] [facility] Department [place] [address] * (ABNORMAL) Comprehensive metabolic panel (04/29/2025 7:17 AM CDT) Sodium 141 135 - 145 mmol/L [facility] ([place]) Potassium, pl 4.5 3.3 - 4.9 mmol/L [facility] ([place]) Chloride 107 97 - 110 mmol/L [facility] ([place]) CO2 28 22 - 32 mmol/L [facility] ([place]) Anion gap 6 2 - 15 mmol/L [facility] ([place]) BUN 7 6 - 25 mg/dL [facility] ([place]) Creatinine 1.07 0.80 - 1.30 [...] Final Resu lt [facility] ([place]) [address] [facility] Department [place] [address] * eGFR (04/28/2025 4:59 AM CDT) eGFR [...] BLOOD ORDERABLES Final Resu lt [facility] ([place]) [address] [facility] Department [place] [address] * (ABNORMAL) Differential, auto (04/28/2025 4:59 AM [...] Final Resu lt [facility] ([place]) [address] [facility] Department of Laboratories [place] [id number] * (ABNORMAL) CBC with auto differential (04/28/2025 [...] RDW SD 43.8 35.7 - 48.1 fL [facility] ([place]) NRBC abs 0.00 0.00 - 0.01 K/cumm [facility] ([place]) Blood 04/28/2025 4:59 AM CDT 04/28/2025 6:11 AM CDT us Simon Pham MD LAB BLOOD ORDERABLES Final Resu lt [facility] ([place]) 1 [facility] [address] [place] [address] * Phosphorus (04/28/2025 4:59 AM CDT) Pathologist [facility] Emergency Department Phosphorus, pl 3.0 2.3 - 4.5 mg/dL [facility] ([place]) Blood 04/28/2025 4:59 AM CDT 04/28/2025 6:11 AM CDT Simon Pham MD LAB BLOOD ORDERABLES Final Resu lt [facility] ([place]) 1 [facility] [place] [address] [place] [address] * Magnesium (04/28/2025 4:59 AM CDT) [facility] Magnesium 2.0 1.4 - 2.5 mg/dL [facility] (ASHA) Blood 04/28/2025 4:59 AM CDT 04/28/2025 6:11 AM CDT Simon Pham MD LAB BLOOD ORDERABLES Final Resu lt [facility] ([place]) 1 [facility] [place] [address] [place] [address] * (ABNORMAL) Comprehensive metabolic panel (04/28/2025 4:59 AM CDT) Pathologist [facility] Sodium 140 135 - 145 mmol/L [facility] ([place]) Potassium, pl 3.5 3.3 - 4.9 mmol/L [facility] ([place]) Chloride 108 97 - 110 mmol/L [facility] ([place]) CO2 21(L) 22 - 32 mmol/L [facility] ([place]) Anion gap 11 2 - 15 mmol/L [facility] ([place]) BUN 7 6 - 25 mg/dL [facility] ([place]) Creatinine 0.96 0.80 - 1.30 [...] Final Resu lt [facility] ([place]) [address] [facility] Department [place] [address] * eGFR (04/27/2025 5:50 AM CDT) eGFR [...] BLOOD ORDERABLES Final Resu lt [facility] ([place]) [address] [facility] Department [place] [address] * (ABNORMAL) Differential, auto (04/27/2025 5:50 AM CDT) Neutrophil abs 1.88 1.50 - 6.50 K/cumm Imm gran abs 0.02 0.00 - 0.10 K/cumm [facility] ([place]) Lymphocyte abs 1.65 0.80 - 3.30 K/cumm [...] LAB BLOOD ORDERABLES Final Resu lt [facility] ([place]) [address] [facility] Department [place] [address] * (ABNORMAL) CBC with auto differential (04/27/2025 [...] (ASHA) MCV 96.4 81.3 - 96.4 fL [facility] MCH 32.1 27.1 - 33.3 pg [facility] ([place]) MCHC 33.3 32.3 - 35.7 g/dL [facility] ([place]) RDW CV 12.6 11.1 - 14.9 % [facility] RDW SD 44.7 35.7 - 48.1 fL [facility] NRBC abs 0.00 0.00 - 0.01 K/cumm [facility] Blood 04/27/2025 5:50 AM CDT 04/27/2025 6:13 AM CDT us Simon Phma MD LAB BLOOD ORDERABLES Final Resu lt Performing Organization Address City/[facility]/ZIP Co de Phone Number [facility] [address] [facility] [place] [address] * Magnesium (04/27/2025 5:50 AM CDT) Magnesium 1.8 1.4 - 2.5 mg/dL [facility] ([place]) Blood 04/27/2025 5:50 AM CDT 04/27/2025 6:13 AM CDT us Simon Pham MD LAB BLOOD ORDERABLES Final Resu lt [facility] [address] [facility] [place] [address] * (ABNORMAL) Comprehensive metabolic panel (04/27/2025 5:50 AM CDT) Sodium 140 135 - 145 mmol/L [facility] Potassium, pl 4.0 3.3 - 4.9 mmol/L [facility] Chloride 108 97 - 110 mmol/L [facility] ([place]) CO2 23 22 - 32 mmol/L [facility] ([place]) Anion gap 9 2 - [...] Final Resu lt [facility] ([place]) [address] [facility] Department [place] [address] * Troponin T high-sensitivity 6-hour (04/26/2025 7:34 PM CDT) Trop T hs 15 <=22 ng/L [facility] ([place]) Comment: Interpretive Data For further hscTnT resources including the diagnostic algorithm and an aid in interpretation, copy and paste this link: https://nrl.[employer]cat[employer].org/show/hsTrop Current Interpretive Data last revised 2020. Trop T hs delta 1 ng/L [facility] ([place]) Trop T hs interp Insignificant [facility] ([place]) Blood 04/26/2025 7:34 PM CDT 04/26/2025 7:39 PM CDT Torie Batista MD LAB BLOOD ORDERABLES Ellen l Result Performing Organization Address [facility] Co de Phone Number [facility] ([place]) [address] [facility] [place] [address] * Troponin T high-sensitivity 4-hour (04/26/2025 5:19 PM CDT) Trop T hs 15 <=22 ng/L [facility] ([place]) Comment: Interpretive Data For further hscTnT resources including the diagnostic algorithm and an aid in interpretation, copy and paste this link: https://nrl.[employer].org/show/hsTrop Current Interpretive Data last revised 2020. Trop T hs delta 1 ng/L [facility] ([place]) Trop T hs interp Insignificant [facility] ([place]) Blood 04/26/2025 5:19 PM CDT 04/26/2025 5:51 PM CDT Torie Batista MD LAB BLOOD ORDERABLES Ellen l Result Performing Organization Address [facility] Co de Phone Number [facility] ([place]) [address] [facility] [place] [address] * Ethanol (04/26/2025 5:19 PM CDT) Ethanol <10 <=10 mg/dL [facility] ([place]) Comment: Interpretive Data Legal limit of intoxication > or = 80 mg/dL Levels > or = 400 mg/dL are potentially TOXIC. Current interpretive data was last revised on 2018. Blood 04/26/2025 5:19 PM CDT 04/26/2025 5:21 PM CDT Torie Batista MD LAB BLOOD ORDERABLES Ellen l Result Performing Organization Address [facility] Co de Phone Number [facility] ([place]) [address] [facility] Department [place] [address] * Troponin T high-sensitivity 2-hour (04/26/2025 4:47 PM CDT) Trop T hs 13 <=22 ng/L [facility] ([place]) Comment: Interpretive Data For further hscTnT resources including the diagnostic algorithm and an aid in interpretation, copy and paste this link: https://nrl.testcatalog.org/show/hsTrop Current Interpretive Data last revised 2020. Trop T hs delta See Comment ng/L CE RNISHA [facility] ([place]) Comment: Inappropriate collection time to report a delta. Testing performed by: [place], [address] Trop T hs pct delta See Comment % [facility] ([place]) Comment: Inappropriate collection time to report a delta. Testing performed by: [place], [address] Trop T hs interp See Comment C JENNIFER [facility] ([place]) Comment: Inappropriate collection time to report a delta. Testing performed by: [place], [address] Blood 04/26/2025 4:47 PM CDT 04/26/2025 4:49 PM CDT Torie Batista MD LAB BLOOD ORDERABLES Ellen l Result Performing Organization Address City/[facility]/ZIP Co de Phone Number [facility] ([place]) [address] [facility] [place] [address] * Sepsis Lactate w/ Reflex (04/26/2025 4:47 PM CDT) Sepsis Lactate 1.4 0.7 - 2.0 mmol/L Blood 04/26/2025 4:47 PM CDT 04/26/2025 4:49 PM CDT us Torie Batista MD LAB BLOOD ORDERABLES Ellen l Result [facility] M[place]) [address] [facility] [place] [address] * CT Head WO Contrast (04/26/2025 3:42 [...] Scott Arce M.D. LC: DIANN Report ID: [id number] [place] Location: [id number] Procedure Note Viridiana Arce MD - 04/26/2025 [...] Scott Arce M.D. LC: DIANN Report ID: [id number] Reading Location: [place] [address] Torie Batista MD IMG CT PROCEDURES Final [...] Jewels Becerra D.O. PS: PS Report ID: [id number] [place] Location: [id number] Procedure Note Jewels Becerra, DO - 04/26/2025 [...] Jewels Becerra D.O. PS: PS Report ID: [id number] [place] Location: [id number] Torie Batista MD IMG XR PROCEDURES Final R esult * Troponin T high-sensitivity series (baseline, 2hr, 4hr, 6hr) (04/26/2025 1:41 PM CDT) Trop T hs 14 <=22 ng/L [facility] ([place]) Comment: Interpretive Data For further hscTnT resources including the diagnostic algorithm and an aid in interpretation, copy and paste this link: https://nrl.testcatalog.org/show/hsTrop Current Interpretive Data last revised 2020. Blood 04/26/2025 1:41 PM CDT 04/26/2025 1:43 PM CDT Torie Batista MD LAB BLOOD ORDERABLES Ellen l Result Performing Organization Address City/[facility]/ZIP Co de Phone Number [facility] ([place]) 1 [facility] [address] [place] [address] * (ABNORMAL) Sepsis Lactate w/ Reflex (04/26/2025 1:41 PM CDT) Sepsis Lactate 2.5(H) 0.7 - 2.0 mmol/L Blood 04/26/2025 1:41 PM CDT 04/26/2025 1:43 PM CDT Torie Batista MD LAB BLOOD ORDERABLES Ellen l Result Performing Organization Address [facility] Co de Phone Number [facility] ([place]) 1 [facility] [address] [place] [address] * Urinalysis reflex to microscopic and culture Urine (04/26/2025 1:00 PM CDT) Color, ur Straw Yellow Clarity, ur Clear Clear [facility] ([place]) Specific gravity, ur 1.009 1.003 - 1.030 [facility] ([place]) pH, urine 5.5 [facility] ([place]) Comment: Interpretive Data U rine pH is affected by diet, medications, systemic acid-base disturbances, and renal tubular function. pH may affect urinary stone formation. For example, urine pH below 6.0 may help reduce the tendency for calcium phosphate stones and pH greater than 6.0 may reduce the tendency for uric acid stone formation. Source: [facility] [address] Current Interpretive Data was last revised on [...] culture not met. [facility] ([place]) Urine 04/26/2025 1:00 PM CDT 04/26/2025 1:06 PM CDT Torie Batista MD LAB MICROBIOLOGY - GENERA L ORDERABLES Final Result [facility] ([place]) [address] [facility] Department [place] [address] * eGFR (04/26/2025 12:14 PM CDT) eGFR [...] LAB BLOOD ORDERABLES Ellen lane Result [facility] ([place]) [address] [facility] Department [place] [address] * Differential, auto (04/26/2025 12:14 PM CDT) Neutrophil abs 2.16 1.50 - 6.50 K/cumm Imm gran abs 0.01 0.00 - 0.10 K/cumm [facility] ([place]) Lymphocyte abs 1.46 0.80 - 3.30 K/cumm [facility] ([place]) Monocyte abs 0.57 0.20 - 0.80 K/cumm [facility] ([place]) Eosinophil abs 0.38 0.00 - 0.50 K/cumm [facility] ([place]) Basophil abs 0.05 0.00 - 0.10 K/cumm [facility] ([place]) Neutrophil pct 46.7 % [facility] ([place]) Comment: Interpretive Data Percent cell count reference ranges are not reported, since discordance with absolute values may lead to misinterpretation of CBC data. Current Interpretive Data was last revised on 2018. Imm gran pct 0.2 % [facility] ([place]) Comment: Interpretive Data Percent cell count reference ranges are not reported, since discordance with absolute values may lead to misinterpretation of CBC data. Current Interpretive Data was last revised on 2018. Lymphocyte pct 31.5 % [facility] ([place]) Comment: Interpretive Data Percent cell count reference ranges are not reported, since discordance with absolute values may lead to misinterpretation of CBC data. Current Interpretive Data was last revised on 2018. Monocyte pct 12.3 % [facility] ([place]) Comment: Interpretive Data Percent cell count reference [...] Ellen lane Result [facility] ([place]) [address] [facility] Department [place] [address] * (ABNORMAL) CBC with auto differential (04/26/2025 [...] - 33.3 pg [facility] ([place]) MCHC 33.7 32.3 - 35.7 g/dL [facility] ([place]) RDW CV 12.5 11.1 - 14.9 % [facility] ([place]) RDW SD 43.5 35.7 - 48.1 fL [facility] ([place]) NRBC abs 0.00 0.00 - 0.01 K/cumm [facility] ([place]) Blood 04/26/2025 12:1 4 PM CDT 04/26/2025 12:27 PM CDT Torie Batista MD LAB BLOOD ORDERABLES Ellen l Result [facility] 1 [facility] [address] [place] [address] * Protime-INR (04/26/2025 12:14 PM CDT) PT 11.3 9.7 - 13.0 sec [facility] ([place]) INR 1.05 0.90 - 1.20 [facility] ([place]) Comment: Interpretive data Oral anticoagulant therapeutic ranges: Venous thromboembolism prophylaxis or treatment: 2.0-3.0 CARDIOLOGY Standard range: 2.0-3.0 High-intensity range: 2.5-3.5 Refer to indication-specific guidelines for appropriate target ranges for prosthetic heart valve replacement. Current interpretive data was last revised on 2019. Blood 04/26/2025 12:1 4 PM CDT 04/26/2025 1:17 PM CDT Torie Batista MD LAB BLOOD ORDERABLES Ellen l Result Performing Organization Address City/[facility]/ZIP Co de Phone Number [facility] ([place]) 1 [facility] [address] [place] [address] * Lipase (04/26/2025 12:14 PM CDT) [facility] Lipase 91 10 - 99 Units/L [facility] ([place]) Blood 04/26/2025 12:1 4 PM CDT 04/26/2025 1:18 PM CDT Torie Batista MD LAB BLOOD ORDERABLES Ellen l Result [facility] ([place]) 1 [facility] [address] [place] [address] * Comprehensive metabolic panel (04/26/2025 12:14 PM CDT) Pathologist [facility] Sodium 141 135 - 145 mmol/L [facility] ([place]) Potassium, pl 3.7 3.3 - 4.9 mmol/L [...] Ellen lane Result [facility] ([place]) [address] [facility] Department [place] [address] * ECG 12 lead (04/26/2025 12:08 PM CDT) 04/26/2025 12:0 8 PM CDT Narrative [facility] - 04/26/2025 1:32 PM CDT Vent Rate: 79 bpm RR Interval: 759 msec OK Interval: 125 msec QRS Duration: 102 msec QT Interval: 362 msec QTC Interval: 396 msec P-R-T [place]: 69 - 16 - 36 degrees IMPRESSION: SINUS RHYTHM WITH OCCASIONAL SUPRAVENTRICULAR PREMATURE COMPLEXES ANTEROSEPTAL MYOCARDIAL INFARCTION , OF INDETERMINATE AGE [40+ ms Q WAVE IN V1- V4] ABNORMAL ECG Prior EKG, heart rate has increased T-wave abnormality is new PACs are new Electronically Signed By: Nicholas Mott MD us Torie Batista MD ECG ORDERABLES Final Res ult [facility] * (ABNORMAL) CBC without differential (04/22/2025 11:11 AM CDT) WBC 5.78 3.80 - 9.90 K/cumm Hgb 12.9(L) 13.0 - 17.5 g/dL [facility] ([place]) Hct 38.7(L) 38.9 - 50.3 % [facility] ([place]) Plt 267 150 - 400 K/cumm [facility] ([place]) MPV 9.6 9.1 - 12.3 fL [facility] ([place]) RBC 4.01(L) 4.30 - 5.80 M/cumm [facility] ([place]) MCV 96.5(H) 81.3 - 96.4 fL [facility] ([place]) MCH 32.2 27.1 - 33.3 pg [facility] ([place]) MCHC 33.3 32.3 - 35.7 g/dL [facility] ([place]) RDW CV 12.2 11.1 - 14.9 % [facility] ([place]) RDW SD 43.4 35.7 - 48.1 fL [facility] ([place]) NRBC abs 0.00 0.00 - 0.01 K/cumm [facility] ([place]) Blood 04/22/2025 11:1 1 AM CDT 04/22/2025 11:19 AM CDT us Lore Guadarrama MD LAB BLOOD ORDERABLES Final Re sult [facility] ([place]) [address] [facility] [employer] [address] [place] [address] * eGFR (04/21/2025 9:00 AM CDT) eGFR [...] BLOOD ORDERABLES Fi nal Result [facility] ([place]) 1 [facility] Department [place] [address] [place] [address] * (ABNORMAL) Comprehensive metabolic panel (04/21/2025 9:00 AM CDT) Sodium 139 135 - 145 mmol/L Potassium, pl 4.2 3.3 - 4.9 mmol/L [facility] ([place]HA) Chloride 102 97 - 110 mmol/L [...] - 55 Units/L [facility] ([place]) AST 18 10 - 50 Units/L [facility] ([place]) Comment: Hemolysis present. Results may be affected. Slightly Hemolyzed Specimen Blood 04/21/2025 9:00 AM CDT 04/21/2025 9:22 AM CDT Narrative [facility] ([place]) - 04/21/2025 9:48 AM CDT patient has a sign on door to draw blood [id number]. RN asked phleb to draw blood at 0700, and not to wake patient at this time. us Mirella Rodríguez MD LAB BLOOD ORDERABLES Fi nal Result [facility]A [facility]) 1 [facility] [place] [address] * (ABNORMAL) Hemoglobin and hematocrit (04/20/2025 5:49 AM CDT) Hgb 12.9(L) 13.0 - 17.5 g/dL Hct 38.1(L) 38.9 - 50.3 % [facility] MosherASHA) Blood 04/20/2025 5:49 AM CDT 04/20/2025 5:51 AM CDT us Mirella Rodríguez MD LAB BLOOD ORDERABLES [facility] Result [facility]ERA [facility]ILLAS[facility]) 1 [facility] [place] [address] * eGFR (04/20/2025 12:15 AM CDT) Pathologist [facility] Department eGFR >90 >=60 mL/min/1. 73 m2 Comment: [...] 5 AM CDT 04/20/2025 12:57 AM CDT us Mirella Rodríguez MD LAB BLOOD ORDERABLES Fi nal Result Performing Organization Address City/[facility]/ZIP Co de Phone Number [facility] ([place]) 1 [facility] [address] [place] [address] * (ABNORMAL) Hemoglobin and hematocrit (04/20/2025 12:15 AM CDT) Hgb 12.6(L) 13.0 - 17.5 g/dL Hct 37.7(L) 38.9 - 50.3 % [facility] ([place]) Blood 04/20/2025 12:1 5 AM CDT 04/20/2025 12:57 AM CDT Mirella Rodríguez MD LAB BLOOD ORDERABLES Fi nal Result Performing Organization Address City/[facility]/ZIP Co de Phone Number [facility] ([place]) 1 [facility] [address] [address] * Magnesium (04/20/2025 12:15 AM CDT) Pathologist [facility] Department Magnesium 2.1 1.4 - 2.5 mg/dL Blood 04/20/2025 12:1 5 AM CDT 04/20/2025 12:57 AM CDT Mirella Rodríguez MD LAB BLOOD ORDERABLES Fi nal Result Performing Organization Address City/[facility]/ZIP Co de Phone Number GUERA [place] ([place]) 1 [facility] [address] [place] [address] * (ABNORMAL) Comprehensive metabolic panel (04/20/2025 12:15 AM CDT) Sodium 139 135 - 145 mmol/L Potassium, pl 3.6 3.3 - 4.9 mmol/L [facility] (ASHA) Chloride 101 97 - 110 mmol/L [facility] ([place]HA) CO2 22 22 - 32 mmol/L [facility] ([place]HA) Anion gap 16(H) 2 - 15 mmol/L [facility] ([place]HA) BUN 8 6 - 25 mg/dL [facility] ([place]HA) Creatinine 0.91 0.80 - 1.30 mg/dL [...] 5 AM CDT 04/20/2025 12:57 AM CDT us Mirella Rodríguez MD LAB BLOOD ORDERABLES Fi nal Result [facility] ([place]) 1 [facility] [place] [address] * Hemoglobin and hematocrit (04/19/2025 5:38 PM CDT) Hgb 13.8 13.0 - 17.5 g/dL Hct 41.4 38.9 - 50.3 % [facility] ([place]) Blood 04/19/2025 5:38 PM CDT 04/19/2025 6:00 PM CDT Mirella Rodríguez MD LAB BLOOD ORDERABLES Fi nal Result GUERA MosherMCKINNEY) 1 [facility] [address] [place] [address] * Hemoglobin and hematocrit (04/19/2025 11:35 AM CDT) Hgb 13.1 13.0 - 17.5 g/dL Hct 39.9 38.9 - 50.3 % [facility] ([place]) Blood 04/19/2025 11:3 5 AM CDT 04/19/2025 12:01 PM CDT Mirella Rodríguez MD LAB BLOOD ORDERABLES Fi nal Result Performing Organization Address City/[facility] Co de Phone Number GUERA MosherMCKINNEY) 1 [facility] [address] [place] [address] * eGFR (04/19/2025 6:43 AM CDT) eGFR >90 >=60 mL/min/1. 73 [...] BLOOD ORDERABLES Fi nal Result [place]A [place] ([place]) 1 [facility] [place] [address] * (ABNORMAL) Differential, auto (04/19/2025 6:43 AM CDT) Neutrophil abs 5.81 1.50 - 6.50 K/cumm Imm gran abs 0.02 0.00 - 0.10 K/cumm [facility] ([place]) Lymphocyte abs 0.45(L) 0.80 - 3.30 K/cumm [facility] ([place]) Monocyte abs 0.22 0.20 - 0.80 K/cumm [facility] ([place]) Eosinophil abs 0.00 0.00 - 0.50 K/cumm [facility] ([place]) Basophil abs 0.01 0.00 - 0.10 K/cumm [facility] ([place]) Neutrophil pct 89.2 % [facility] ([place]) Comment: Interpretive Data Percent cell count reference [...] revised on 2018. Basophil pct 0.2 % [facility] ([place]) Comment: Interpretive Data Percent cell count reference ranges are not reported, since discordance with absolute values may lead to misinterpretation of CBC data. Current Interpretive Data was last revised on 2018. Blood 04/19/2025 6:43 AM CDT 04/19/2025 9:18 AM CDT us Herman WHEATLEY LAB BLOOD ORDERABLES Final R esult [facility] ([place]) 1 [facility] Department [place] [address] * (ABNORMAL) CBC with auto differential (04/19/2025 6:43 AM CDT) WBC 6.51 3.80 - 9.90 K/cumm Hgb 12.7(L) 13.0 - 17.5 g/dL [facility] ([place]) Hct 38.1(L) 38.9 - 50.3 % [facility] ([place]) Plt 299 150 - 400 K/cumm [facility] ([place]) MPV 9.9 9.1 - 12.3 fL [facility] ([place]) RBC 3.97(L) 4.30 - 5.80 M/cumm [facility] ([place]) MCV 96.0 81.3 - 96.4 fL [facility] ([place]) MCH 32.0 27.1 - 33.3 pg [facility] ([place]) MCHC 33.3 32.3 - 35.7 g/dL [facility] ([place]) RDW CV 12.8 11.1 - 14.9 % [facility] ([place]) RDW SD 45.2 35.7 - 48.1 fL [facility] ([place]) NRBC abs 0.00 0.00 - 0.01 K/cumm [facility] ([place]) Blood 04/19/2025 6:43 AM CDT 04/19/2025 9:18 AM CDT us Herman WHEATLEY LAB BLOOD ORDERABLES Final R esult [facility] ([place]) 1 [facility] Department [place] [address] [place] [address] * Magnesium (04/19/2025 6:43 AM CDT) Magnesium 1.8 1.4 - 2.5 mg/dL Blood 04/19/2025 6:43 AM CDT 04/19/2025 9:18 AM CDT Mirella Rodríguez MD LAB BLOOD ORDERABLES Fi nal Result Performing Organization Address [facility]/ZIP Co de Phone Number [place]A [place] ([place]) 1 [facility] [place] [address] [place] [address] * (ABNORMAL) Comprehensive metabolic panel (04/19/2025 6:43 AM CDT) Sodium 139 135 - 145 mmol/L Potassium, pl 3.9 3.3 - 4.9 mmol/L [facility] ([place]HA) Chloride 102 97 - 110 mmol/L [facility] ([place]) CO2 24 22 - 32 mmol/L [facility] ([place]) Anion gap 13 2 - 15 mmol/L [facility] ([place]) BUN 5(L) 6 - 25 mg/dL [facility] ([place]) Creatinine 0.86 0.80 - 1.30 mg/dL [facility] Glucose 120 70 - 199 mg/dL [facility] ([place]HA) Comment: Interpretive Data Fasting glucose >/= [...] classification and Diagnosis of Diabetes Diabetes Care 2022; 46: S19-S40. Current interpretive data was last [...] MD LAB BLOOD ORDERABLES Fi nal Result [facility] ([place]) 1 [facility] Department [place] [address] * (ABNORMAL) Urinalysis reflex to microscopic and culture Urine (04/18/2025 8:51 PM CDT) Color, ur Straw Yellow Clarity, ur Clear Clear [facility] ([place]) Specific gravity, ur 1.036(H) 1.003 - 1.030 [facility] ([place]) pH, urine 7.0 [facility] Comment: Interpretive Data U rine pH is affected by diet, medications, systemic acid-base disturbances, and renal tubular function. pH may affect urinary stone formation. For example, urine pH below 6.0 may help reduce the tendency for calcium phosphate stones and pH greater than 6.0 may reduce the tendency for uric acid stone formation. Source: [facility] [address] Current Interpretive Data was last revised on 2017 Protein, ur ql Negative Negative [facility] ([place]) Glucose, ur ql Negative Negative [facility] ([place]) Ketones, ur Negative Negative [facility] ([place]) Bilirubin, ur Negative Negative [facility] ([place]) Blood, ur Negative Negative [facility] ([place]) Urobilinogen, ur <2.0 <2.0 mg/dL [facility] ([place]) Nitrite, ur Negative Negative CERNER A ([place]) Leukocyte esterase, ur Negative Negative [facility] ([place]) UA reflex comment Reflex conditions for microscopic UA and culture not met. [facility] ([place]) Urine 04/18/2025 8:51 PM CDT 04/18/2025 8:55 PM CDT Herman WHEATLEY LAB MICROBIOLOGY - GENERAL O RDERABLES Final Result GUERA [facility] ([place]CKINNEY) 1 [facility] Department [place] [address] * (ABNORMAL) Drugs of Abuse Screen, Urine without Confirmation (04/18/2025 8:51 PM CDT) Pathologist [facility] Amphetamine, ur Not Detected CutOff 500ng/mL Comment: [...] Phencyclidine, ur Not Detected CutOff 25 ng/mL [facility] ([place]) Comment: Interpretive Data - Phencyclidine: Samples [...] 04/18/2025 8:55 PM CDT Narrative [facility]A [facility] ([place]HA) - 04/18/2025 9:24 PM CDT Drug of Abuse screening is performed by immunoassay for medical purposes only. This is not to be used for Pain Management purposes. us Herman WHEATLEY LAB URINE ORDERABLES Final R esult [facility] ([place]) 1 [facility] Department [place] [address] * CT Abdomen Pelvis W Contrast (04/18/2025 [...] Adam Wong M.D. KT: ЮЛИЯ Report ID: [id number] Reading Location: [id number] Procedure Note Adam Wong MD - 04/18/2025 [...] Adam Wong M.D. KT: KT Report ID: [id number] Reading Location: [place] [address] PROCEDURES Final Resu lt * Troponin T high-sensitivity 6-hour (04/18/2025 7:03 PM CDT) Pathologist [facility] Trop T hs 9 <=22 ng/L Comment: Interpretive Data For further hscTnT resources including the diagnostic algorithm and an aid in interpretation, copy and paste this link: https://nrl.testcatalog.org/show/hsTrop Current Interpretive Data last revised 2020. Trop T hs delta -1 ng/L [facility] ([place]) Trop T hs interp Insignificant [facility] ([place]) Blood 04/18/2025 7:03 PM CDT 04/18/2025 7:05 PM CDT Marvin Laws MD LAB BLOOD ORDERABLES Final R esult [facility] ([place]) 1 [facility] Department [place] [address] * Ethanol (04/18/2025 7:03 PM CDT) Ethanol <10 <=10 mg/dL Comment: Interpretive Data Legal limit of intoxication > or = 80 mg/dL Levels > or = 400 mg/dL are potentially TOXIC. Current interpretive data was last revised on 2018. Blood 04/18/2025 7:03 PM CDT 04/18/2025 7:05 PM CDT Herman WHEATLEY LAB BLOOD ORDERABLES Final R esult Performing Organization Address [facility] Co de Phone Number GUERA [place] ([place]CK[place]) 1 [facility] [address] [place] [address] * Troponin T high-sensitivity 4-hour (04/18/2025 4:11 PM CDT) Trop T hs 12 <=22 ng/L Comment: Interpretive Data For further hscTnT resources including the diagnostic algorithm and an aid in interpretation, copy and paste this link: https://nrl.testcatalog.org/show/hsTrop Current Interpretive Data last revised 2020. Trop T hs delta 2 ng/L [facility] ([place]) Trop T hs interp Insignificant [facility] ([place]) Blood 04/18/2025 4:11 PM CDT 04/18/2025 4:14 PM CDT Marvin Laws MD LAB BLOOD ORDERABLES Final R esult Performing Organization Address [facility] Co de Phone Number [place]A [place] ([place]) 1 [facility] [address] [place] [address] * XR Chest 1 Vw Portable (If [...] Jewels Becerra D.O. PS: PS Report ID: [id number] Reading Location: [id number] Procedure Note Jewels Becerra, DO - 04/18/2025 EXAM DESCRIPTION: XR CHEST 1 [...] Jewels Becerra D.O. PS: PS Report ID: [id number] Reading Location: [id number] Mirella Rodríguez MD IMG XR PROCEDURES Final [...] BLOOD ORDERABLES Fi nal Result [facility]A [place] ([place]) 1 [facility] [address] [place] [address] * eGFR (04/18/2025 12:17 PM CDT) eGFR [...] BLOOD ORDERABLES Fi nal Result GUERA [place] ([place]CK[place]) 1 [facility] [address] [place] [address] * Differential, auto (04/18/2025 12:17 PM CDT) [...] BLOOD ORDERABLES Fi nal Result [facility]A [facility] ([place]HA) 1 [facility] Department [place] [address] [place] [address] * (ABNORMAL) CBC with auto differential (04/18/2025 [...] 12:17 PM CDT 04/18/2025 12:20 PM CDT us Mirella Rodríguez MD LAB BLOOD ORDERABLES Fi nal Result [facility] [place] ([place]HA) 1 [facility] [employer] [place] [address] [place] [address] * Lipase (04/18/2025 12:17 PM CDT) Lipase 43 10 - 99 Units/L Blood 04/18/2025 12:1 7 PM CDT 04/18/2025 3:40 PM CDT us Herman WHEATLEY LAB BLOOD ORDERABLES Final R esult [facility] ([place]) 1 [facility] Department [place] [address] * Comprehensive metabolic panel (04/18/2025 12:17 PM CDT) Sodium 139 135 - 145 mmol/L Potassium, pl 4.2 3.3 - 4.9 mmol/L [facility] ([place]) Chloride 104 97 - 110 mmol/L [facility] ([place]) CO2 22 22 - 32 mmol/L [facility] ([place]) Anion gap 13 2 - 15 mmol/L [facility] ([place]) BUN 9 6 - 25 mg/dL [facility] ([place]) Creatinine 1.02 0.80 - 1.30 mg/dL [facility] ([place]) Glucose 130 70 - 199 mg/dL [facility] ([place]) [...] ORDERABLES Fi nal Result Performing Organization Address City/[facility] Co de Phone Number GUERA HILL (MCKINNEY) [address] [place] [address] [place] [address] * ECG 12 lead (04/18/2025 12:11 PM CDT) 04/18/2025 12:1 1 PM CDT Narrative [facility] - 04/19/2025 12:29 PM CDT Vent Rate: 52 bpm RR Interval: 1149 msec OK Interval: 120 msec QRS Duration: 97 msec QT Interval: 391 msec QTC Interval: 370 msec P-R-T [place]: 63 - 34 - 59 degrees IMPRESSION: SINUS BRADYCARDIA POSSIBLE RIGHT VENTRICULAR CONDUCTION DELAY [RSR (QR) IN V1/V2] ANTEROSEPTAL MYOCARDIAL INFARCTION , OF INDETERMINATE AGE [40+ ms Q WAVE IN V1- V4] ABNORMAL ECG Compared to prior EKG, heart rate has decreased Anterolateral T-wave inversions are no longer present Electronically Signed By: Nicholas Mott MD Mirella Rodríguez MD ECG ORDERABLES Final R esult Performing Organization Address City/[facility] Co de Phone Number [facility] * MCT Mobile Cardiac Telemetry Event Monitor (03/29/2025 11:56 AM CDT) Anatomical Region Laterality Modality Electrocardiogra phy 04/27/2025 11:5 9 PM CDT Narrative 04/30/2025 10:32 AM CDT [address] [address] EVENT MONITOR Patient Name: AMADOU NIEVES : [...] Procedure Note Ely Babin MD - 04/30/[address] [place] [address] EVENT MONITOR Patient Name: AMADOU NIEVES : [...] Ellen lane Result [facility] ([place]HA) 1 [facility] [place] [address] * (ABNORMAL) CBC without differential (03/29/2025 4:03 AM CDT) WBC 4.77 3.80 - 9.90 K/cumm Hgb 13.0 13.0 - 17.5 g/dL [facility] ([place]) Hct 39.1 38.9 - 50.3 % [facility] ([place]) Plt 260 150 - 400 K/cumm [facility] ([place]) MPV 10.3 9.1 - 12.3 fL [facility] ([place]) RBC 4.09(L) 4.30 - 5.80 M/cumm [facility] ([place]) MCV 95.6 81.3 - 96.4 fL [facility] ([place]) MCH 31.8 27.1 - 33.3 pg [facility] ([place]) MCHC 33.2 32.3 - 35.7 g/dL [facility] ([place]) RDW CV 11.9 11.1 - 14.9 % [facility] ([place]) RDW SD 41.7 35.7 - 48.1 fL [facility] ([place]) NRBC abs 0.00 0.00 - 0.01 K/cumm [facility] ([place]) Blood 03/29/2025 4:03 AM CDT 03/29/2025 5:11 AM CDT us Juliana Peterson MD LAB BLOOD ORDERABLES Ellen l Result [facility]A [facility] (ASHA) 1 [facility] Department [place] [address] [place] [address] * (ABNORMAL) Basic metabolic panel (03/29/2025 4:03 AM CDT) Sodium 137 135 - 145 mmol/L Potassium, pl 3.7 3.3 - 4.9 mmol/L [facility] ([place]) Chloride 100 97 - 110 mmol/L [facility] ([place]) CO2 25 22 - 32 mmol/L [facility] ([place]) Anion gap 12 2 - 15 mmol/L [facility] ([place]) BUN 13 6 - 25 mg/dL [facility] ([place]) Creatinine 0.91 0.80 - 1.30 mg/dL [facility] ([place]) Glucose 127 70 - 199 mg/dL [facility] ([place]) [...] 2022. Calcium 8.3(L) 8.5 - 10.3 mg/dL [facility] ([place]HA) Blood 03/29/2025 4:03 AM CDT 03/29/2025 5:11 AM CDT Juliana Peterson MD LAB BLOOD ORDERABLES Ellen l Result [facility]ERA [facility] (ASHA) 1 [facility] Department [place] [address] * MRI Abdomen Kidney W WO Contrast [...] Adam Pitts M.D. KR: MADELINE Report ID: [id number] Reading Location: [id number] Procedure Note Adam Pitts MD - 03/28/2025 [...] COMPARISON: CT abdomen and pelvis 03/22/2025; renal pskelcdmfl12/17/2025 FINDINGS: KIDNEYS: No suspicious renal lesion identified, [...] Electronically signed by Adam Pitts M.D. KR: KR Report ID: [id number] Reading Location: [place] [address] Juliana Peterson MD IM MRI PROCEDURES Final Result * eGFR (03/28/2025 [...] Ellen lane Result [facility]A [facility] ([place]) 1 [facility] Department [place] [address] * (ABNORMAL) CBC without differential (03/28/2025 6:42 AM CDT) WBC 5.33 3.80 - 9.90 K/cumm Hgb 13.6 13.0 - 17.5 g/dL [facility] ([place]) Hct 41.3 38.9 - 50.3 % [facility] ([place]) Plt 248 150 - 400 K/cumm [facility] ([place]) MPV 9.7 9.1 - 12.3 fL [facility] ([place]) RBC 4.21(L) 4.30 - 5.80 M/cumm [facility] ([place]) MCV 98.1(H) 81.3 - 96.4 fL [facility] ([place]) MCH 32.3 27.1 - 33.3 pg [facility] ([place]) MCHC 32.9 32.3 - 35.7 g/dL [facility] ([place]) RDW CV 12.0 11.1 - 14.9 % [facility] ([place]) RDW SD 43.3 35.7 - 48.1 fL [facility] ([place]) NRBC abs 0.00 0.00 - 0.01 K/cumm [facility] ([place]) Blood 03/28/2025 6:42 AM CDT 03/28/2025 7:15 AM CDT us Juliana Peterson MD LAB BLOOD ORDERABLES Ellen l Result GU[facility]A [facility] (ASHA) 1 [facility] Department [place] [address] * Basic metabolic panel (03/28/2025 6:42 AM CDT) Sodium 139 135 - 145 mmol/L Potassium, pl 4.2 3.3 - 4.9 mmol/L [facility] ([place]) Chloride 102 97 - 110 mmol/L [facility] ([place]) CO2 27 22 - 32 mmol/L [facility] ([place]) Anion gap 10 2 - 15 mmol/L [facility] ([place]) BUN 15 6 - 25 mg/dL [facility] ([place]) Creatinine 0.99 0.80 - 1.30 mg/dL [facility] ([place]) Glucose 95 70 - 199 mg/dL [facility] ([place]) [...] - 10.3 mg/dL [facility] ([place]) Blood 03/28/2025 6:42 AM CDT 03/28/2025 7:15 AM CDT us Juliana Peterson MD LAB BLOOD ORDERABLES Ellen l Result [facility]A [facility] (ASHA) 1 [facility] Department [place] [address] [place] [address] * US Kidney Complete (03/27/2025 3:41 PM [...] Ely Lieberman M.D. RB: AMANDA Report ID: [id number] Reading Location: [id number] Procedure Note Ely Lieberman MD - 03/27/2025 [...] Ely Lieberman M.D. RB: AMANDA Report ID: [id number] Reading Location: [place] [address] us Juliana Peterson MD IMG US PROCEDURES Final R esult * eGFR [...] MD LAB BLOOD ORDERABLES Ellen lane Result [facility] ([place]) 1 [facility] Department [place] [address] * (ABNORMAL) CBC without differential (03/27/2025 10:52 AM CDT) WBC 5.86 3.80 - 9.90 K/cumm Hgb 14.1 13.0 - 17.5 g/dL [facility] ([place]) Hct 42.0 38.9 - 50.3 % [facility] ([place]) Plt 242 150 - 400 K/cumm [facility] ([place]) MPV 9.3 9.1 - 12.3 fL [facility] ([place]) RBC 4.31 4.30 - 5.80 M/cumm [facility] ([place]) MCV 97.4(H) 81.3 - 96.4 fL [facility] ([place]) MCH 32.7 27.1 - 33.3 pg [facility] ([place]) MCHC 33.6 32.3 - 35.7 g/dL [facility] ([place]) RDW CV 12.2 11.1 - 14.9 % [facility] ([place]) RDW SD 44.1 35.7 - 48.1 fL [facility] ([place]) NRBC abs 0.00 0.00 - 0.01 K/cumm [facility] ([place]) Blood 03/27/2025 10:5 2 AM CDT 03/27/2025 10:58 AM CDT us Juliana Peterson MD LAB BLOOD ORDERABLES Ellen l Result GU[facility]A [facility] ([place]) 1 [facility] [place] [address] * Basic metabolic panel (03/27/2025 10:52 AM CDT) Sodium 137 135 - 145 mmol/L Potassium, pl 3.8 3.3 - 4.9 mmol/L [facility] ([place]HA) Chloride 99 97 - 110 mmol/L [facility] ([place]) CO2 25 22 - 32 mmol/L [facility] ([place]) Anion gap 12 2 - 15 mmol/L [facility] ([place]) BUN 18 6 - 25 mg/dL [facility] (ASHA) Creatinine 1.00 0.80 - 1.30 mg/dL [facility] ([place]) Glucose 115 70 - 199 mg/dL [facility] (ASHA) Comment: Interpretive Data Fasting glucose >/= [...] 2022. Calcium 8.5 8.5 - 10.3 mg/dL [facility] ([place]) Blood 03/27/2025 10:5 2 AM CDT 03/27/2025 10:58 AM CDT Juliana Peterson MD LAB BLOOD ORDERABLES Ellen l Result [facility] (ASHA) 1 [facility] Department [place] [address] * Urinalysis reflex to microscopic (03/27/2025 6:05 [...] tendency for uric acid stone formation. Source: [facility] [employer] Current Interpretive Data was last revised on 2017 Protein, ur ql Trace Negative [facility] ([place]) Glucose, ur ql Negative Negative [facility] ([place]) Ketones, ur Negative Negative [facility] ([place]) Bilirubin, ur Negative Negative [facility] ([place]) Blood, ur Negative Negative [facility] ([place]) Urobilinogen, ur <2.0 <2.0 mg/dL [facility] ([place]) Nitrite, ur Negative Negative [facility] A ([place]) Leukocyte esterase, ur Negative Negative [facility] ([place]) UA reflex comment Reflex conditions for microscopic UA not met. [facility] ([place]) Urine 03/27/2025 6:05 AM CDT 03/27/2025 6:10 AM CDT Juliana Peterson MD LAB URINE ORDERABLES Ellen l Result [facility] ([place]HA) 1 [facility] Department [place] [address] * CT Abdomen Pelvis WO Contrast (03/26/2025 [...] Peter Monterroso M.D. MJ: JARVIS Report ID: [id number] Reading Location: [place] [address] Procedure Note Peter Monterroso MD - 03/26/2025 [...] KUB earlier today and prior CT abdomen ihtizs1103/22/2025. FINDINGS: The sensitivity for detection of visceral [...] signed by Peter CONLEY: JARVIS Report ID: [id number] Reading Location: [place] [address] us Juliana Peterson MD IMG CT PROCEDURES [...] signed by Peter CONLEY: JARVIS Report ID: [id number] Reading Location: [id number] Procedure Note Peter Monterroso MD - 03/26/2025 [...] 3:48 PM - Electronically signed by Peter Monterroso M.D. MJ: JARVIS Report ID: [id number] Reading Location: [id number] us Juliana Peterson MD IMG XR PROCEDURES Final R esult * ECG 12 lead (03/26/2025 11:02 AM CDT) 03/26/2025 11:0 2 AM CDT [facility] - 03/26/2025 12:30 PM CDT Vent Rate: 87 bpm RR Interval: 685 msec OK Interval: 116 msec QRS Duration: 98 msec QT Interval: 338 msec QTC Interval: 383 msec P-R-T [place]: 85 - -22 - 60 degrees IMPRESSION: SINUS RHYTHM WITH SHORT OK INTERVAL WITH OCCASIONAL SUPRAVENTRICULAR PREMATURE COMPLEXES POSSIBLE LEFT ATRIAL ENLARGEMENT [-0.1mV P-WAVE IN V1/V2] SEPTAL MYOCARDIAL INFARCTION , OF INDETERMINATE AGE [40+ ms Q WAVE IN V1/V2] MODERATE T-WAVE ABNORMALITY, CONSIDER LATERAL ISCHEMIA [-0.1+ mV T-WAVE IN I/aVL/V5/V6] ABNORMAL ECG Compared to prior EKG, PACs are new Electronically Signed By: Nicholas Mott MD us Juliana Peterson MD ECG ORDERABLES Final Res ult Performing Organization Address City/[facility]/ZIP Co de Phone Number [facility] * eGFR (03/26/2025 6:40 AM CDT) eGFR [...] 6:40 AM CDT 03/26/2025 6:56 AM CDT Juliana Peterson MD LAB BLOOD ORDERABLES Ellen l Result Performing Organization Address [facility] Co de Phone Number GUERA [address] Department [place] [address] * Magnesium (03/26/2025 6:40 AM CDT) Magnesium 2.2 1.4 - 2.5 mg/dL Blood 03/26/2025 6:40 AM CDT 03/26/2025 11:22 AM CDT Juliana Peterson MD LAB BLOOD ORDERABLES Ellen l Result Performing Organization Address City/[facility] Co de Phone Number [place]A [place] (ASHA) 1 [facility] Department [place] [address] * Basic metabolic panel (03/26/2025 6:40 AM CDT) [facility] Sodium 135 135 - 145 mmol/L Potassium, pl 4.0 3.3 - 4.9 mmol/L [facility] (ASHA) Chloride 98 97 - 110 mmol/L [facility] (ASHA) CO2 23 22 - 32 mmol/L [facility] (ASHA) Anion gap 15 2 - 15 mmol/L [facility] (ASHA) BUN 17 6 - 25 mg/dL [facility] ([place]HA) Creatinine 0.92 0.80 - 1.30 mg/dL [facility] (ASHA) Glucose 118 70 - 199 mg/dL [facility] (ASHA) Comment: Interpretive Data Fasting glucose >/= [...] 2022. Calcium 9.2 8.5 - 10.3 mg/dL [facility] ([place]) Blood 03/26/2025 6:40 AM CDT 03/26/2025 6:56 AM CDT us Juliana Peterson MD LAB BLOOD ORDERABLES Ellen lane Result [facility]) 1 [facility] Department [place] [address] * eGFR (03/24/2025 5:56 AM CDT) [facility] eGFR >90 >=60 mL/min/1. 73 m2 Comment: [...] DO LAB BLOOD ORDERABLES Fin al Result [facility] ([place]) 1 [facility] Department [place] [address] * Differential, auto (03/24/2025 5:56 AM CDT) [...] BLOOD ORDERABLES Fin al Result [facility] ([place]) 1 [facility] Department [place] [address] * CBC with auto differential (03/24/2025 5:56 AM CDT) WBC 7.70 3.80 - 9.90 K/cumm Hgb 15.8 13.0 - 17.5 g/dL [facility] ([place]) Hct 46.2 38.9 - 50.3 % [facility] ([place]) Plt 271 150 - 400 K/cumm [facility] ([place]) MPV 9.9 9.1 - 12.3 fL [facility] ([place]) RBC 4.92 4.30 - 5.80 M/cumm [facility] ([place]) MCV 93.9 81.3 - 96.4 fL [facility] ([place]) MCH 32.1 27.1 - 33.3 pg [facility] ([place]) MCHC 34.2 32.3 - 35.7 g/dL [facility] ([place]) RDW CV 12.4 11.1 - 14.9 % [facility] ([place]) RDW SD 42.8 35.7 - 48.1 fL [facility] ([place]) NRBC abs 0.00 0.00 - 0.01 K[facility]cumm [facility] Blood 03/24/2025 5:56 AM CDT 03/24/2025 6:25 AM CDT Jia Rodríguez [employer] DO LAB BLOOD ORDERABLES Fin al Result Performing Organization Address City/[facility]/ZIP Co de Phone Number [facility] ([place]) 1 [facility] [place] [employer] [place] [address] * Phosphorus (03/24/2025 5:56 AM CDT) Phosphorus, pl 2.8 2.3 - 4.5 mg/dL Blood 03/24/2025 5:56 AM CDT 03/24/2025 6:25 AM CDT Floqq DO LAB BLOOD ORDERABLES Fin al Result [facility] ([place]) 1 [facility] [place] [address] * Magnesium (03/24/2025 5:56 AM CDT) Magnesium 2.0 1.4 - 2.5 mg/dL Blood 03/24/2025 5:56 AM CDT 03/24/2025 6:25 AM CDT Jia Rodríguez [employer] DO LAB BLOOD ORDERABLES Fin al Result GUERA [facility] (ASHA) 1 [facility] Department [place] [address] * (ABNORMAL) Comprehensive metabolic panel (03/24/2025 5:56 AM CDT) Sodium 137 135 - 145 mmol/L Potassium, pl 3.5 3.3 - 4.9 mmol/L [facility] ([place]) Chloride 99 97 - 110 mmol/L [facility] ([place]) CO2 22 22 - 32 mmol/L [facility] ([place]) Anion gap 16(H) 2 - 15 mmol/L [facility] ([place]) BUN 8 6 - 25 mg/dL [facility] ([place]) Creatinine 0.87 0.80 - 1.30 mg/dL [facility] ([place]) Glucose 139 70 - 199 mg/dL [facility] ([place]) [...] ORDERABLES Fin al Result Performing Organization Address City/[facility]/ZIP Co de Phone Number [facility] ([place]) 1 [facility] Department [place] [employer] [place] [address] * eGFR (03/23/2025 3:34 AM CDT) eGFR [...] BLOOD ORDERABLES Final Resu lt [facility] ([place]) 1 [facility] [place] [address] * Differential, auto (03/23/2025 3:34 AM CDT) Neutrophil abs 4.35 1.50 - 6.50 K/cumm Imm gran abs 0.02 0.00 - 0.10 K/cumm [facility] ([place]) Lymphocyte abs 2.33 0.80 - 3.30 K/cumm [facility] ([place]) Monocyte abs 0.79 0.20 - 0.80 K/cumm [facility] ([place]) Eosinophil abs 0.05 0.00 - 0.50 K/cumm [facility] ([place]) Basophil abs 0.05 0.00 - 0.10 K/cumm [facility] ([place]) Neutrophil pct 57.2 % [facility] ([place]) Comment: Interpretive [...] 2018. Monocyte pct 10.4 % [facility] ([place]) Comment: Interpretive Data Percent cell count reference ranges are not reported, since discordance with absolute values may lead to misinterpretation of CBC data. Current Interpretive Data was last revised on 2018. Eosinophil pct 0.7 % [facility] ([place]) Comment: Interpretive [...] Final Resu lt [facility] ([place]) 1 [facility] [place] [address] * (ABNORMAL) CBC with auto differential (03/23/2025 3:34 AM CDT) [facility] WBC 7.59 3.80 - 9.90 K/cumm Hgb 14.2 13.0 - 17.5 g/dL [facility] (ASHA) Hct 42.8 38.9 - 50.3 % [facility] ([place]) Plt 275 150 - 400 K/cumm [facility] ([place]) MPV 10.3 9.1 - 12.[address] [facility] ([place]) RBC 4.41 4.30 - 5.80 M/cumm [facility] ([place]) MCV 97.1(H) 81.3 - 96.[address] [facility] ([place]) MCH 32.2 27.1 - 33.[address] [facility] ([place]) MCHC 33.2 32.3 - 35.7 g/dL [facility] ([place]) RDW CV 12.7 11.1 - 14.9 % [facility] ([place]) RDW SD 45.9 35.7 - 48.[address] [facility] ([place]) NRBC abs 0.00 0.00 - 0.01 K/cumm [facility] ([place]) Blood 03/23/2025 3:34 AM CDT 03/23/2025 5:17 AM CDT us Simon Pham MD LAB BLOOD ORDERABLES Final Resu lt [facility] 1 [facility] Department [place] [address] * (ABNORMAL) Hemoglobin A1c (03/23/2025 3:34 AM CDT) [facility] Hgb A1C 5.7(H) 4.0 - 5.6 % Estimated Average Glucose 117 mg/dL [facility] ([place]HA) Comment: The ADA recommends reporting an estimated Average Glucose (eAG) with all Hemoglobin A1c results using the equation derived from a study of 507 normal and diabetic adults. Minority populations were underrepresented and children were not included. (Diabetes Care 31:3822-7596, 2008). The eAG is not equivalent to a fasting glucose. Blood 03/23/2025 3:34 AM CDT 03/23/2025 5:17 AM CDT Simon Pham MD LAB BLOOD ORDERABLES Final Resu lt [facility] ([place]) 1 [facility] Department [place] [address] * Lipid panel (03/23/2025 3:34 AM CDT) [...] on 2018. HDL 58 >=40 mg/dL GUERA Puentes (ASHA) Comment: Interpretive Data Ages < or [...] 2018. LDL, calculated 95 <=129 mg/dL [facility] ([place]) Comment: Interpretive Data [...] NCEP Expert Panel. Circulation 2004;110:227 3. Carlos M et al. LUTHER Cardiol. 2020 February 08;5(5):540-548. doi: 10.1001/jamacardio.2020.0013 Current Interpretive Data was last revised on 2024. Non-HDL Cholesterol 105 mg/dL [facility] ([place]) Comment: Interpretive Data [...] last revised on 2018. Chol/HDL ratio 3 [facility] ([place]) Blood 03/23/2025 3:34 AM CDT 03/23/2025 5:17 AM CDT us Simon Pham MD LAB BLOOD ORDERABLES Final Resu lt [facility] ([place]) 1 [facility] Department [place] [address] * Comprehensive metabolic panel (03/23/2025 3:34 AM CDT) Sodium 138 135 - 145 mmol/L Potassium, pl 3.8 3.3 - 4.9 mmol/L [facility] ([place]) Chloride 100 97 - 110 mmol/L [facility] ([place]) CO2 24 22 - 32 mmol/L [facility] ([place]) Anion gap 14 2 - 15 mmol/L [facility] ([place]) BUN 10 6 - 25 mg/dL [facility] ([place]) Creatinine 1.08 0.80 - 1.30 mg/dL [facility] ([place]) Glucose 73 70 - 199 mg/dL [facility] ([place]) [...] Final Resu lt [facility] ([place]) 1 [facility] Department [place] [address] * (ABNORMAL) Urinalysis reflex to microscopic and [...] tendency for uric acid stone formation. Source: [facility] Current Interpretive Data was last revised on 2017 Protein, ur ql Trace Negative [facility] ([place]) Glucose, ur ql Trace(A) Negative [facility] ([place]) Ketones, ur 1+(A) Negative [facility] (ASHA) Bilirubin, ur [...] MICROBIOLOGY - GENERAL ORDERABLES Final Result [facility] ([place]) 1 [facility] Department [place] [address] * (ABNORMAL) Drugs of Abuse Screen, Urine without Confirmation (03/22/2025 6:16 PM CDT) Pathologist [facility] Amphetamine, ur Not Detected CutOff 500ng/mL Comment: Interpretive Data - Amphetamines: Samples containing greater than 500 ng/mL d-methamphetamine or other cross-reacting amphetamine compounds are reported as positive. Amphetamine immunoassays are subject to significant false positive rates due to cross-reactivity of non-amphetamine drugs. Confirmatory testing required for definitive results. Current Interpretive Data was last reviewed 2023. Barbiturates, ur Not Detected CutOff 200ng/mL [facility] ([place]) Comment: Interpretive Data - Barbiturates: Samples containing greater than 200 ng/mL secobarbital or other cross-reacting barbiturate compounds are reported as positive. False positive and false negative results are possible. Confirmatory testing required for definitive results. Current Interpretive Data was last reviewed 2023. Benzodiazepines, ur Screen Positive, presumptive (A) CutOff 100ng/mL [facility] ([place]) Comment: Interpretive Data - Benzodiazepines: [...] Phencyclidine, ur Not Detected CutOff 25 ng/mL [facility] ([place]) Comment: Interpretive Data - Phencyclidine: Samples containing greater than 25 ng/mL phencyclidine or other cross-reacting compounds are reported as positive. False positive and false negative results are possible. Confirmatory testing required for definitive results. Current Interpretive Data was last reviewed 2023. Urine Creatinine 162 mg/dL [facility] N[facility] (ASHA) Comment: Interpretive Data Urine Creatinine: < [...] LAB URINE ORDERABLES Final Re sult GUERA VILLASENOR) 1 [facility] [place] [address] * US Carotids Duplex Bilateral (03/22/2025 5:31 [...] Adam Wong M.D. KT: ЮЛИЯ Report ID: [id number] Reading Location: [place] [address] Procedure Note Adam Wong MD - 03/22/2025 [...] Adam Wong M.D. KT: ЮЛИЯ Report ID: [id number] Reading Location: [place] [address] us Ramirez Lew NP IMG US PROCEDURES [...] appears within normal limits for patient age. Mvwh-rx-orzklpaz T2 FLAIR hyperintensity in the periventricular and [...] hyperintensity is nonspecific but most likely represents binr-xi-ewxqmcij chronic small vessel ischemic disease. Chronic lacunar infarct of the right medial thalamus. THIS IS AN ELECTRONICALLY VERIFIED FINAL REPORT 03/22/2025 2:29 PM - Electronically signed by Torres Sarabia M.D. MM: MM Report ID: [id number] Reading Location: [place] [address] Procedure Note Torres Sarabia MD - 03/22/2025 EXAM DESCRIPTION: MRI BRAIN WO CONTRAST REASON FOR STUDY: Stroke, follow up, Possible stroke Pt came into the ED this morning for nausea and vomiting. Pt is fatigued, having weakness and difficulty directions. TECHNIQUE: Multiplanar imaging includes non-contrasted T1, T2, FLAIR, and diffusion with ADC map sequences. Additional sequence(s) sensitive Sabre. Images stored on PACS. COMPARISON: Same day head CT FINDINGS: No acute infarction. No evidence of acute or chronic hemorrhageidentified. No mass effect, mass or midline shift. The ventricles are normal in size. Brain volume appears within normallimits for patient age. Asvm-nw-hzlptcky T2 FLAIR hyperintensity in the periventricular and [...] FLAIR hyperintensity is nonspecific but mostlikely represents bimr-rc-gpqepfaz chronic small vessel ischemic disease.Chronic lacunar infarct of the right medial thalamus. THIS IS AN ELECTRONICALLY VERIFIED FINAL REPORT 03/22/2025 2:29 PM - Electronically signed by Torres Sarabia M.D. MM: MM Report ID: [id number] Reading Location: [id number] us Akbar Bhagat MD IM MRI PROCEDURES Final Result * TRANSTHORACIC ECHO (TTE) COMPLETE W DOPPLER/CF WO CONTRAST W BUBBLE (03/22/2025 10:53 AM CDT) EF Mod BP 60 % CONS SCIMAGE Anatomical Region Laterality Modality Ultrasound 03/22/2025 10:3 2 AM CDT Narrative 03/22/2025 1:40 [place] [address] Echocardiogram Report Patient Name: AMADOU NIEVES : 1965 Study Date: 03/22/2025 10:32:49 AM Gender: M Tech: REFUGIO Location: [id number] Ref Provider: AKBAR BHAGAT Height(Cm): BSA: Weight(Kg): [...] Procedure Note Nathaly Reynolds MD - 03/22/[address] [address] Echocardiogram Report Patient Name: AMADOU NIEVES : 1965 Study Date: 03/22/2025 10:32:49 AM Gender: M Tech: REFUGIO Location: [id number] [place] [address] Provider: AKBAR BHAGAT Height(Cm): BSA: Weight(Kg): Quality: [...] Nathaly Reynolds MD 03/22/2025 1:39:47 PM CDT us Akbar Bhagat MD CV ECHO PROCEDURES Final Result * ABO / Rh Confirmation Testing (03/22/2025 10:10 AM CDT) ABO/Rh Confirmation O Positive [facility] Blood 03/22/2025 10:1 0 AM CDT 03/22/2025 10:14 AM CDT us Frank Trujillo MD LAB BLOOD ORDERABLES Final Re sult GUERA [facility] ([place]) 1 [facility] Department of Laboratories [place], [place] [address] [facility] * Ethanol (03/22/2025 10:10 AM CDT) Ethanol <10 <=10 mg/dL Comment: Interpretive Data Legal limit of intoxication > or = 80 mg/dL Levels > or = 400 mg/dL are potentially TOXIC. Current interpretive data was last revised on 2018. Blood 03/22/2025 10:1 0 AM CDT 03/22/2025 10:14 AM CDT us Akbar Bhagat MD LAB BLOOD ORDERABLE S Final Result [facility]A [facility] ([place]) 1 [facility] [place] [address] * CT Abdomen Pelvis W Contrast (03/22/2025 [...] Kb Garrido M.D. AM: AM Report ID: [id number] Reading Location: [id number] Procedure Note Kb Garrido MD - 03/22/2025 [...] Kb Garrido M.D. AM: AM Report ID: [id number] Reading Location: [place] [address] Akbar Bhagat MD IMG CT PROCEDURES F [...] Electronically signed by Carol Christopher M.D. TW: TW Report ID: [id number] Reading Location: [id number] Procedure Note Carol Christopher MD - 03/22/2025 [...] Electronically signed by Carol Christopher M.D. TW: TW Report ID: [id number] Reading Location: [place] [address] Frank Trujillo MD IMG XR PROCEDURES Final Resul t * Troponin T high-sensitivity (03/22/2025 5:59 AM CDT) Trop T hs <6 <=22 ng/L Comment: Interpretive Data For further hscTnT resources including the diagnostic algorithm and an aid in interpretation, copy and paste this link: https://nrl.testcatalog.org/show/hsTrop Current Interpretive Data last revised 2020. Blood 03/22/2025 5:59 AM CDT 03/22/2025 6:04 AM CDT Frank Trujillo MD LAB BLOOD ORDERABLES Final Re sult Performing Organization Address [facility]/ZIP Co de Phone Number [facility] ([place]) [address] [place] [address] [place] [address] * ABO/Rh (03/22/2025 5:59 AM CDT) ABO/Rh O Positive Blood 03/22/2025 5:59 AM CDT 03/22/2025 6:03 AM CDT Narrative [facility] ([place] - 03/22/2025 8:23 AM CDT Has the patient had Daratumumab or Isatuximab in the past 6 months?->Unknown Frank Trujillo MD LAB BLOOD BANK TEST ORDERABLE S Final Result [facility] ([place]) 1 [facility] [employer] [place] [address] * aPTT (03/22/2025 5:59 AM CDT) aPTT 38 28 - 38 sec GUERA [facility] ([place]) Comment: Interpretive Data Heparin therapeutic range: 66.0 - 100.0 seconds. Range based on correlation with therapeutic heparin activity range of 0.3 - 0.7 Units/mL. Current interpretive data was last revised on 2023. Blood 03/22/2025 5:59 AM CDT 03/22/2025 6:03 AM CDT Frank Trujillo MD LAB BLOOD ORDERABLES Final Re sult [facility] ([place]) 1 [facility] [employer] [place] [address] * Protime-INR (03/22/2025 5:59 AM CDT) PT 10.9 9.7 - 13.0 sec GU[facility]A [facility] ([place]) INR 1.01 0.90 - 1.20 GUERA [facility] ([place]) Comment: Interpretive data Oral anticoagulant therapeutic ranges: Venous thromboembolism prophylaxis or treatment: 2.0-3.0 CARDIOLOGY Standard range: 2.0-3.0 High-intensity range: 2.5-3.5 Refer to indication-specific guidelines for appropriate target ranges for prosthetic heart valve replacement. Current interpretive data was last revised on 2019. Blood 03/22/2025 5:59 AM CDT 03/22/2025 6:03 AM CDT Frank Trujillo MD LAB BLOOD ORDERABLES Final Re sult Performing Organization Address [facility] Co de Phone Number GUERA [facility] ([place]) 1 [facility] [employer] [address] * Antibody screen (03/22/2025 5:59 AM CDT) Sherice, indirect, Gel Interpretation Negative ABSC Blood 03/22/2025 5:59 AM CDT 03/22/2025 6:03 AM CDT Narrative [facility]ERA [facility] ([place]) - 03/22/2025 8:24 AM CDT Has the patient had Daratumumab or Isatuximab in the past 6 months?->Unknown Frank Trujillo MD LAB BLOOD BANK TEST ORDERABLE S Final Result [facility] ([place]) 1 [facility] [employer] [address] * Lipase (03/22/2025 5:59 AM CDT) Lipase 13 10 - 99 Units/L Blood 03/22/2025 5:59 AM CDT 03/22/2025 6:16 AM CDT us Akbar Bhagat MD LAB BLOOD ORDERABLE S Final Result Performing Organization Address [facility] Phone Number [facility] ([place]) 1 [facility] [employer] [address] * ECG 12 lead (03/22/2025 5:42 AM CDT) 03/22/2025 5:42 AM CDT Narrative [facility] 03/22/2025 7:14 AM CDT Vent Rate: 71 bpm RR Interval: 842 msec OK Interval: 124 msec QRS Duration: 101 msec QT Interval: 414 msec QTC Interval: 436 msec P-R-T [place]: 79 - 42 - 262 degrees IMPRESSION: SINUS RHYTHM Leftward axis Old anteroseptal UT LVH with strain by precordial voltage criteria Inferior T-wave changes, possibly from LVH with strain or ischemia No prior EKG for comparison Electronically Signed By: Dr Ely Babin us Frank Trujillo MD ECG ORDERABLES Final Result Performing Organization Address [facility] de Phone Number [employer] [facility] * CT Head WO Contrast (03/22/2025 4:45 [...] Electronically signed by Carol Christopher M.D. TW: TW Report ID: [id number] Reading Location: [id number] Procedure Note Carol Christopher MD - 03/22/2025 [...] Carol Christopher M.D. TW: JADEN Report ID: [id number] Reading Location: [place] [address] Frank Trujillo MD IMG CT PROCEDURES Final [...] LAB BLOOD ORDERABLE S Final Result GUERA [facility] ([place]) 1 [facility] Department [place] [address] * Differential, auto (03/22/2025 2:24 AM CDT) Neutrophil abs 4.46 1.50 - 6.50 K/cumm Imm gran abs 0.01 0.00 - 0.10 K/cumm [facility] ([place]) Lymphocyte abs 1.33 0.80 - 3.30 K/cumm [facility] ([place]) Monocyte abs 0.44 0.20 - 0.80 K/cumm [facility] ([place]) Eosinophil abs 0.00 0.00 - 0.50 K/cumm [facility] ([place]) Basophil abs 0.04 0.00 - 0.10 K/cumm [facility] ([place]) Neutrophil pct 71.0 % [facility] ([place]) Comment: Interpretive Data Percent cell count reference ranges are not reported, since discordance with absolute values may lead to misinterpretation of CBC data. Current Interpretive Data was last revised on 2018. Imm gran pct 0.2 % [facility] ([place]) Comment: Interpretive Data Percent cell count reference ranges are not reported, since discordance with absolute values may lead to misinterpretation of CBC data. Current Interpretive Data was last revised on 2018. Lymphocyte pct 21.2 % [facility] ([place]) Comment: Interpretive Data Percent cell count reference ranges are not reported, since discordance with absolute values may lead to misinterpretation of CBC data. Current Interpretive Data was last revised on 2018. Monocyte pct 7.0 % [facility] ([place]) Comment: Interpretive Data Percent cell count reference [...] MD LAB BLOOD ORDERABLE S Final Result [facility] ([place]) 1 [facility] [place] [address] * CBC with auto differential (03/22/2025 2:24 AM CDT) WBC 6.28 3.80 - 9.90 K/cumm Hgb 15.4 13.0 - 17.5 g/dL [facility] ([place]) Hct 44.4 38.9 - 50.3 % [facility] ([place]) Plt 280 150 - 400 K/cumm [facility] ([place]) MPV 9.9 9.1 - 12.3 fL [facility] ([place]) RBC 4.71 4.30 - 5.80 M/cumm [facility] ([place]) MCV 94.3 81.3 - 96.4 fL [facility] ([place]) MCH 32.7 27.1 - 33.3 pg [facility] ([place]) MCHC 34.7 32.3 - 35.7 g/dL [facility] ([place]) RDW CV 12.9 11.1 - 14.9 % [facility] ([place]) RDW SD 44.5 35.7 - 48.1 fL [facility] ([place]) NRBC abs 0.00 0.00 - 0.01 K/cumm [facility] ([place]) Blood Venous blood specimen / Unknown 03/22/2025 2:24 AM CDT 03/22/2025 2:27 AM CDT us Akbar Bhagat MD LAB BLOOD ORDERABLE S Final Result [facility] ([place]) 1 [facility] [place] [address] * (ABNORMAL) Comprehensive metabolic panel (03/22/2025 2:24 AM CDT) Sodium 144 135 - 145 mmol/L Potassium, pl 4.3 3.3 - 4.9 mmol/L [facility] ([place]) Chloride 102 97 - 110 mmol/L [facility] ([place]) CO2 26 22 - 32 mmol/L [facility] ([place]) Anion gap 17(H) 2 - 15 mmol/L [facility] ([place]) BUN 12 6 - 25 mg/dL [facility] ([place]) Creatinine 1.06 0.80 - 1.30 [...] LAB BLOOD ORDERABLE S Final Result [facility] ([place]) 1 [facility] Department [place] [address] from Last 3 Months Insurance [facility] Advance Directives For more information, please contact: [phone] * Full Code (Latest Code Status on File) Date Activated Date Inactivated Comments 04/27/2025 1:00 AM 04/29/2025 3:47 PM * Full Code Date Activated Date Inactivated Comments 04/18/2025 11:00 PM 04/23/2025 7:32 PM * Full Code Date Activated Date Inactivated Comments 03/22/2025 8:36 AM 03/29/2025 3:37 PM Care Teams Visiting Professor Relationship Specialty Start Date End Date No, Physician PCP - General 03/11/25
[2025-05-09 14:07] VITALS: BP 156/98; PULSE 55; RESP 15; O2SAT 99
--- OUTSIDE RECORDS SUMMARY | 2025-05-09 14:07 | XMS_ITS ---
Author Organization [facility] Address [address] [place] [address] Care Team Providers Care Mailhouse Operator Name Role Phone Adam Motta Primary Care Provider Elva Mackay Unavailable [phone] Allergies No Known Allergies REASON FOR VISIT Medication Management Medications Medication SIG (Take, Route, Frequency, Duration) Notes Start Date End Date Status dilTIAZem HCl ER 240 MG 1 tablet Orally Once a day Active Lisinopril 40 MG 1 tablet Orally Once a day Active Folic Acid 1 MG 1 tablet Orally Once a day; Duration: 14 days 05/08/2025 Active Thiamine HCl 100 MG 1 tablet Orally Once a day; Duration: 14 05/08/2025 Active cloNIDine HCl 0.1 MG 1 tablet Orally onc e; Duration: 1 05/08/2025 Active Melatonin 5 MG 1 tablet at bedtime as needed Orally Once a day; Duration: 30 days 05/07/2025 Active Nicotine 7 MG/24HR 1 patch to skin Transdermal Once a day, removing at bedtime; Duration: 14 05/07/2025 Active hydrOXYzine Pamoate 25 MG 1-2 capsules O rally every 4 hours as needed for anxiety, agitation, or inability to sleep. Do not give within 4 hours of diphenhydramine.; Duration: 30 days 05/07/2025 Active Atorvastatin Calcium 80 MG 1 tablet Orally at night Active Multi Vitamin - 1 tablet Orally Once a day; Duration: 30 05/07/2025 Active Nicotine Polacrilex 4 MG 1 lozenge as ne eded for nicotine cravings Mouth/Throat Up to once per hour (maximum of 15 lozenges per day); Duration: 7 days 05/07/2025 Active Social History Tobacco Use: Social History Observation Description Date Details (start date - stop date) Current Smoker NA - NA Tobacco Control (Standard) Question Answer Notes Tobacco use: Current smoker How often do you smoke cigarettes? Every day Problems Problem Type SNOMED Code ICD Code Onset Dates Problem Status W/U Status Risk Notes Problem Elevated blood pressure (I10) Active confirmed Vital Signs Weight 126.8 lbs 05/08/2025 Height 68 in 05/08/2025 BMI 19.28 kg/m2 05/08/2025 Blood pressure systolic 142 mm Hg 05/08/20 25 Blood pressure diastolic 110 sitting mm Hg 05/08 Heart Rate 60 /min 05/08/2025 Oximetry 99 % 05/08/2025 Temperature 97.8 degrees Fahrenheit 05/08/20 25 Respiratory Rate 20 /min 05/08/2025 142/100 BP was taken before leaving the unit this morning by RMA. RMA will retake vitals on HC side and record as normal [id number]/110 sitting, 152/100 laying, 162/110 standing (vitals retaken at 9:57 am this visit) provider aware Encounters Encounter Location Date Provider Diagnosis [facility] [place] [address] 05/08/2025 Elva Mackay Alcohol use disorder F10.99 and Elevated blood pressure I10 Assessments Encounter Date Diagnosis (ICD Code) Assessment Notes Treatment Notes Treatment Clinical Notes Section Notes 05/08/2025 Alcohol use disorder (ICD-10 - F10.99) 05/08/2025 Elevated blood pressure (ICD-10 - I10) Continue f/u with PCP for treatment of HTN. Discussed importance of taking medication as prescribed and adverse effects of uncontrolled HTN. B/P on discharge . Plan Of Treatment Medication Medication Name Sig Start Date Stop Date Notes Folic Acid 1 MG 1 tablet Orally Once a day; Duration: 14 days 05/08/2025 Thiamine HCl 100 MG 1 tablet Orally Once a day; Duration: 14 days 05/08/2025 cloNIDine HCl 0.1 MG 1 tablet Orally onc e; Duration: 1 days 05/08/2025 Treatment Notes Assessment Notes Elevated blood pressure Continue f/u wit h PCP for treatment of HTN. Discussed importance of taking medication as prescribed and adverse effects of uncontrolled HTN. B/P on discharge . Next Appt Details Follow Up: prn, Reason: Provider Name:Loyda Bustamantelary va, 05/15/2025 11:00:00 AM, 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 Subjective: * Chief Complaints: * M edication Management * HPI: D epression Screening: PHQ-9 L ittle interest or pleasure in doing things?Not at all F eeling down, depressed, or hopeless N ot at all T rouble falling or staying asleep, or sleeping too much S everal days F eeling tired or having little energy S everal days P oor appetite or overeating N ot at all F eeling bad about yourself or that you are a failure, or have let yourself or your family down N ot at all T rouble concentrating on things, such as reading the newspaper or watching television N ot at all M oving or speaking so slowly that other people could have noticed; or the opposite, being so fidgety or restless that you have been moving around a lot more than usual N ot at all T houghts that you would be better off or of hurting yourself in some way N ot at all T otal Score 2 I nterpretation M inimal Depression Intervention D epression Screening Findings P ositive F ollow-Up for Depression P atient is admitted to a [facility] unit where their mental health is monitored - unit nursing staff have access to this encounter note S creening: [place] Suicide Severity Rating Scale (LF) D o you want to initiate with S creener form 1 . Wish to be : Have you wished you were or wished you could go to sleep and not wake up? N o 2 . Suicidal Thoughts: Have you actually had any thoughts of killing yourself? N o 6 . Suicide Behavior Question: Have you ever done anything,started to do anything, or prepared to end your life? N o I nterpretation: L ow Risk A mbulatory Withdrawal Intake: Intake Screening for Ambulatory Withdrawal Services F or female patients, are you currently ? M mary client - not applicable S ubstance of Choice C ocaine D ate of last cocaine use 0 05/06/2025 H ow often do you (or how of often did you) use cocaine? D aily W as alcohol selected in the previous question? Y es A ny alcohol use in the last 30 days? If yes, complete PAWSS (1pt for each yes) Y es I ntoxicated or drunk in the last 30 days??Yes (1 pt) E oumar undergone alcohol use rehab treatment or treatment for alcoholism? N o (0 pt) E oumar experienced previous episodes of alcohol withdrawal (regardless of severity)? Y es (1 pt) E oumar experienced blackouts? N o (0 pt) E oumar experienced alcohol withdrawal seizures??No (0 pt) E oumar experienced delirium tremens or DTs??No (0 pt) H ave you combined alcohol with downers like benzodiazepines or barbiturates in the last 90 days? N o (0 pt) H ave you combined alcohol with any other substance of abuse during the last 90 days? N o (0 pt) I f onsite for screening: Was patient's blood alcohol level on presentation greater than or equal to 200? N o (0 pt) I f onsite, is there evidence of increased autonomic activity (HR over 120, tremor, sweating, agitation, nausea)? Y es (1 pt) T otal PAWSS score: 3 F or substances other than alcohol, have you ever experienced seizures while going through withdrawal/detox? N o W hat MAR medication(s) are you seeking? C omfort medications for withdrawal period. H ave you used comfort medications in the past to help reduce unpleasant symptoms during the withdrawal or detox process? U nsure P atient education provided (_select all that apply): A ll patients: Be sure to hydrate prior to and during detox. We encourage you to sip water, drinking eight 8oz glasses of water per day, if possible, and consume ice chips or freezer pops to assist with hydration., All patients: If possible, bring a loved one (roommate, friend, family member) to the appointment for Narcan and other medication education. Some medications may make you drowsy requiring someone else to transport you., All patients: Be aware that if medications are administered on site, the length of the appointment could change. Patients should relay information to transportation., All patients: if your medication of choice is not appropriate or not appropriate at this time, your provider will discuss alternative options with you, including the possibility of starting the medication from home., Pt interested in Naltrexone or Vivitrol: appointment time is approximately 2-3 hours. You must be free of opiates for 7-10 days., Pt interested in buprenorphine: Approximate appointment length is 2 hours. You must be in moderate withdrawal to start medication on site., Pt interested in Sublocade: You must be stable on a buprenorphine containing oral product for 7 days before receiving Sublocade., Pt interested in Brixadi: You must initiate treatment with oral buprenorphine products before receiving the injection. This may add additional time to your appointment if you are not already taking a buprenorphine-containing product. . P reventative Health and Wellness follow-up: Action Plans for Clinical Quality Measures: C olorectal Cancer Screening: N ot addressed during this visit. See notes for details. H IV Screening: N ot addressed during this visit. See notes for details. T obacco Screening and Cessation: N ot addressed during this visit. See notes for details. . C SSRS Interpretation and Follow Up Plan: CSSRS Interpretation and Follow Up Plan C SSRS Screen documented using SF Y es R isk Disposition from L ow - No Follow Up Plan Required F ollow Up Plan N o Follow Up Plan required at this time. T imeframdelma of Screening Jaylyn CABRERA Initial Assessment: Mr. Wiley presents for evaluation for AWM. Currently admitted to the MRU. Drug of choice: alcohol - reports drinking a 6 pack of beer daily with last drink 2-3 days ago. Reports currently not experiencing any withdrawal symptoms, reports no history of seizures in the past. Does report cravings for alcohol but not interested in MAR services at this time. States he is concerned about his b/p being elevated and feeling lightheaded. Has history of HTN, however, prior to admission to the MRU was not taking medication regularly. Substance use history S ubstance Use History, drugs of choice: A lcohol Addiction Treatment History P rior Medications for REILLY treatment N one. First time seeking treatment. T herapy/counseling and Recovery support (peers/groups) N o history of therapy/counseling or engagement with recovery support peer/groups. Therapy/counseling and recovery support discussed and encouraged. Referrals placed. History of Infectious Diseases H istory of viral hepatitis N o H istory of HIV N o H istory of TB N o H istory of other infectious diseases N o History of IV drug use and related infections H istory of injection drug use? N o Acute Trauma A cute Trauma N o Psychiatric History H istory of psychiatric diagnoses? N o Primary Care H as a primary care provider? N o I nterested in primary care services at this time? Y es. staff veterinarian will coordinate appointment. Assessment and history specific to females F emale/Female at ? N o Hepatitis A and B vaccination status V accination status Hep A D enies vaccination to Hep A. Vaccination encouraged and resources offered. V accination status, Hep B D enies vaccination for Hep B. Encourage vaccination and offered resources. Housing Stability and Employment I s housing stable/safe? Y es C urrently employed? U nemployed. Support System: H as a support system: Y es (specify): Narcan Access H as Narcan and has been trained on its use??Not applicable. Prescription Drug Monitoring Program P rescription Drug Monitoring Program reviewed? Y es. No concerns identified. * ROS: B asic ROS: Denies W eight loss or gain. D enies C hange in appetite. I nsomnia D enies. A dmits A nxiety. D enies D epressed Mood. D enies S uicidal Thoughts. C ardiovascular: Denies E kiera. D enies C hest pain. A dmits?Dizziness. A dmits H igh blood pressure. D enies S hortness of breath. D enies?Weakness. * Medical History: * Surgical History: D enleny Past Surgical History * Hospitalization/Major Diagno stic Procedure: A [facility] due to severe nausea and vomiting 04/2025 * Family History: F ather: . M other: . 2 sister(s) - healthy. . * Social History: P rimary Social History: L iving Arrangement L iving Arrangement: D ependent Living I s this a supportive environment? Y es Alcohol Use A lcohol Use Frequency: W eekly or Daily T ype of alcohol consumed [place] iqu[place], Beer Illicit Substance Usage I llicit Substance Usage: Y es S ubstance Used: C rack F requency Crack is used: d aily I nterested in quitting: Y es Single Question Alcohol Screening H ow may times in the past year have you had (4 for women, or 5 for men) or more drinks in a day? 1 00 T obacco Use: T obacco Control (Standard) T obacco use: C urrent smoker H ow often do you smoke cigarettes? E very day * Medications: T akingNicotine Polacrilex 4 MG Lozenge 1 lozenge as needed for nicotine cravings Mouth/Throat Up to once per hour (maximum of 15 lozenges per day) Multi Vitamin - Tablet 1 tablet Orally Once a day Melatonin 5 MG Tablet 1 tablet at bedtime as needed Orally Once a day Nicotine 7 MG/24HR Patch 24 Hour 1 patch to skin Transdermal Once a day, removing at bedtime hydrOXYzine Pamoate 25 MG Capsule 1-2 capsules Orally every 4 hours as needed for anxiety, agitation, or inability to sleep. Do not give within 4 hours of diphenhydramine. Atorvastatin Calcium 80 MG Tablet 1 tablet Orally at night dilTIAZem HCl ER 240 MG Tablet Extended Release 24 Hour 1 tablet Orally Once a day Lisinopril 40 MG Tablet 1 tablet Orally Once a day Medication List reviewed and reconciled with the patientTaking Nicotine Polacrilex 4 MG Lozenge 1 lozenge as needed for nicotine cravings Mouth/Throat Up to once per hour (maximum of 15 lozenges per day) Taking Multi Vitamin - Tablet 1 tablet Orally Once a day Taking Melatonin 5 MG Tablet 1 tablet at bedtime as needed Orally Once a day Taking Nicotine 7 MG/24HR Patch 24 Hour 1 patch to skin Transdermal Once a day, removing at bedtime Taking hydrOXYzine Pamoate 25 MG Capsule 1-2 capsules Orally every 4 hours as needed for anxiety, agitation, or inability to sleep. Do not give within 4 hours of diphenhydramine. Taking Atorvastatin Calcium 80 MG Tablet 1 tablet Orally at night Taking dilTIAZem HCl ER 240 MG Tablet Extended Release 24 Hour 1 tablet Orally Once a day Taking Lisinopril 40 MG Tablet 1 tablet Orally Once a day Medication List reviewed and reconciled with the patient * Allergies: N .K.D.A.no[Allergies Verified] Objective: * Vitals: I nitials: HM, Wt:126.8, Ht: 68, BMI:19.28, BP:142/110 sitting, 2nd BP read:152/100 laying down, HR:60, Oxygen sat %:99, Temp:97.8, RR:20, Pain scale:0. 142/100 BP was taken before leaving the unit this morning by RMA. RMA will retake vitals on HC side and record as normal above 142/110 sitting, 152/100 laying, 162/110 standing (vitals retaken at 9:57 am this visit) provider aware. * Examination: C IWA-AR: Time of Assessment: 0 950. NAUSEA AND VOMITING: Do you feel sick to your stomach? Have you vomited? Observation. 0 No nausea and no vomiting. TREMOR - Arms extended and fingers spread apart. Observation.?0 no tremor. PAROXYSMAL SWEATS - Observation. 0 no sweat visible. ANXIETY - Do you feel nervous? Observation. 1 mildly anxious. TACTILE DISTURBANCES - Have you any itching, pins and needles sensations, any burning, any numbness, or do you feel bugs crawling on or under your skin? Observation 0 none. AUDITORY DISTURBANCES - Are you more aware of sounds around you? Are they harsh? Do they frighten you? Are you hearing anything that is disturbing you? Are you hearing things you know are not there? Observation. 0 not present. VISUAL DISTURBANCES - Does the light appear to be too bright? Is its color different? Does it hurt your eyes? Are you seeing anything that is disturbing you? Are you seeing things you know are not there? Observation. 0 not present. HEADACHE, FULLNESS IN HEAD - Does your head feel different? Does it feel like there is a band around your head? Do not rate for dizziness or lightheadedness. Otherwise, rate severity. 0 not present. AGITATION - Observation 0 normal activity. ORIENTATION AND CLOUDING OF SENSORIUM - What day is this? Where are you? Who am I? 0 oriented and can do serial additions. 1 1:04 am clonidine 0.1 mg self administered with supervision client instructed on medication Clonidine can cause low blood pressure and should not be taken if your blood pressure is less than 100/60. Symptoms of low blood pressure include blurred or fading vision, dizzy or lightheaded feelings, fainting, fatigue, and difficulty concentrating. If you are experiencing symptoms of low blood pressure, do not take clonidine. If your blood pressure falls too low, you may experience shock, which could become life threatening. Symptoms of shock include confusion, cold and clammy skin, pale skin color, rapid and shallow breathing, and weak and rapid pulse. I f these symptoms occur, call 911. 11:30 am repeat c/p 174/100 CHITRA Mackay informed continue to monitor and repeat b/p 12:05 pm b/p 146/90 returned client to MRU. A [facility] Physical Assessment: Intoxication and Withdrawal signs I ntoxication signs N o signs of intoxication are present during examination. W ithdrawal Signs N o withdrawal signs are present during examination. . G eneral Examination: GENERAL APPEARANCE: i n no acute distress. PSYCH: s peech clear, good eye contact, full range of affect/positive mood, thought process logical, goal directed. Assessment: * Assessment: 1. E levated blood pressure - I10 2 . A lcohol use disorder - F10.99 (Primary) Plan: * Treatment: 2. E levated blood pressure Start cloNIDine HCl Tablet, 0.1 MG, 1 tablet, Orally, once, 1 days, 1, Refills 0. Notes: Continue f/u with PCP for treatment of HTN. Discussed importance of taking medication as prescribed and adverse effects of uncontrolled HTN. B/P on discharge /. * Recommended Wellness and Pre vention Guidelines: * S selvin A oracio L ast Done N ext Due A ction Taken N ONCOMPLIANT A lcohol use screening - 0 05/08/2025 - - N ONCOMPLIANT C holesterol screen (genl pop) - 0 05/08/2025 - - N ONCOMPLIANT C olorectal cancer screening - 0 05/08/2025 - - N ONCOMPLIANT D epression followup 0 05/07/2025 0 05/08/2025 - - * Procedure Codes: C HS16 Ambulatory Withdrawal - Intake screening * Preventive Medicine: Counseling: S MOKING: Patient counselled on the dangers of tobacco use and urged to quit. . * Follow Up: p rn * * Sign off status: Completed true * Provider: Marsha Mackay, MSN, CLIENT RESOLUTION SPECIALIST, ASSURANCE AUDITOR-C Date: 05/08/2025 Generated for Severiano dowling/Jimmie/eTransmitting on: 05/09/2025 02:06 PM CDT History and Physical Notes * HPI (History of Present Illness) Category Sub-Category Detail Notes Category Not es Depression Screening PHQ-9 Little inte rest or pleasure in doing things: Not at all Feeling down, depressed, or hopeless: No t at all Trouble falling or staying asleep, or sl eeping too much: Several days Feeling tired or having little energy: S everal days Poor appetite or overeating: Not at all Feeling bad about yourself o r that you are a failure, or have let yourself or your family down: Not at all Trouble concentrating on thi ngs, such as reading the newspaper or watching television: Not at all Moving or speaking so slowly that other people could have noticed; or the opposite, being so fidgety or restless that you have been moving around a lot more than usual: Not at all Thoughts that you would be b sandy off or of hurting yourself in some way: Not at all Total Score: 2 Interpretation: Minimal Depression Intervention Depression Screening Findings: P ositive Follow-Up for Depression: Byron gibson is admitted to a [facility] unit where their mental health is monitored - unit nursing staff have access to this encounter note Screening [place] Suicide Sev erity Rating Scale (LF) Do you want to initiate with: Screener form 1. Wish to be : Have you wished you were or wished you could go to sleep and not wake up?: No 2. Suicidal Thoughts: Have you actually had any thoughts of killing yourself?: No 6. Suicide Behavior Question: Have you ever done anything,started to do anything, or prepared to end your life?: No Interpretation:: Low Risk MAR Initial Assessment History of Infect ious Diseases History of viral hepatitis: No History of HIV: No History of TB: No History of other infectious diseases: No Acute Trauma Acute Trauma: No History of IV drug use and r elated infections History of injection drug use?: No Psychiatric History History of psychiatric diagn oses?: No Substance use history Substance Use Hist ory, drugs of choice:: Alcohol Addiction Treatment History Prior Medica tions for REILLY treatment: None. First time seeking treatment. Therapy/counseling and Recov torsten support (peers/groups): No history of therapy/counseling or engagement with recovery support peer/groups. Therapy/counseling and recovery support discussed and encouraged. Referrals placed. Primary Care Has a primary care provider?: No Interested in primary care services at this time?: Yes. staff veterinarian will coordinate appointment. Assessment and history speci fic to females Female/Female at ?: No Hepatitis A and B vaccination status Vac cination status Hep A: Denies vaccination to Hep A. Vaccination encouraged and resources offered. Vaccination status, Hep B: D enies vaccination for Hep B. Encourage vaccination and offered resources. Housing Stability and Employment Is housing stab le/safe?: Yes Currently employed?: Unemployed. Support System: Has a support system:: Yes (spec elisa): Narcan Access Has Narcan and has b een trained on its use?: Not applicable. Prescription Drug Monitoring Program Pre scription Drug Monitoring Program reviewed?: Yes. No concerns identified. Preventative Health and Wellness follow-up Action Plans for Clinical Quality Measures: Colorectal Cancer Screening:: Not addressed during this visit. See notes for details. . HIV Screening:: Not addressed during thi s visit. See notes for details. Tobacco Screening and Cessat ion:: Not addressed during this visit. See notes for details. CSSRS Interpretation and Follow Up Plan CSSRS Interpretation and Follow Up Plan CSSRS Screen documented using SF: Yes Risk Disposition from SF: Low - No Follo w Up Plan Required Follow Up Plan: No Follow Up Plan requir ed at this time. Timeframe of Screening: Today Ambulatory Withdrawal Intake Intake Screening for Ambulatory Withdrawal Services For female patients, are you currently ?: Male client - not applicable . Substance of Choice: Cocaine Date of last cocaine use: 05/06/2025 How often do you (or how of often did you) use cocaine?: Daily Was alcohol selected in the previous que stion?: Yes Any alcohol use in the last 30 days? If yes, complete PAWSS (1pt for each yes): Yes Intoxicated or drunk in the last 30 days?: Yes (1 pt) Ever undergone alcohol use rehab treatment or treatment for alcoholism?: No (0 pt) Ever experienced previous episodes of alcohol withdrawal (regardless of severity)?: Yes (1 pt) Ever experienced blackouts?: No (0 pt) Ever experienced alcohol withdrawal seizures?: No (0 pt) Ever experienced delirium tremens or DTs?: No (0 pt) Have you combined alcohol with downers like benzodiazepines or barbiturates in the last 90 days?: No (0 pt) Have you combined alcohol with any other substance of abuse during the last 90 days?: No (0 pt) If onsite for screening: Was patient's blood alcohol level on presentation greater than or equal to 200?: No (0 pt) If onsite, is there evidence of increased autonomic activity (HR over 120, tremor, sweating, agitation, nausea)?: Yes (1 pt) Total PAWSS score:: 3 For substances other than al cohol, have you ever experienced seizures while going through withdrawal/detox?: No What MAR medication(s) are y ou seeking?: Comfort medications for withdrawal period. Have you used comfort medica tions in the past to help reduce unpleasant symptoms during the withdrawal or detox process?: Unsure Patient education provided ( _select all that apply):: All patients: Be sure to hydrate prior to and during detox. We encourage you to sip water, drinking eight 8oz glasses of water per day, if possible, and consume ice chips or freezer pops to assist with hydration., All patients: If possible, bring a loved one (roommate, friend, family member) to the appointment for Narcan and other medication education. Some medications may make you drowsy requiring someone else to transport you., All patients: Be aware that if medications are administered on site, the length of the appointment could change. Patients should relay information to transportation., All patients: if your medication of choice is not appropriate or not appropriate at this time, your provider will discuss alternative options with you, including the possibility of starting the medication from home., Pt interested in Naltrexone or Vivitrol: appointment time is approximately 2-3 hours. You must be free of opiates for 7-10 days., Pt interested in buprenorphine: Approximate appointment length is 2 hours. You must be in moderate withdrawal to start medication on site., Pt interested in Sublocade: You must be stable on a buprenorphine containing oral product for 7 days before receiving Sublocade., Pt interested in Brixadi: You must initiate treatment with oral buprenorphine products before receiving the injection. This may add additional time to your appointment if you are not already taking a buprenorphine-containing product. Examination Category Sub-Category Detail Notes Category Not es General Examination GENERAL APPEARANCE: in no acute di stress PSYCH: speech clear, good e ye contact, full range of affect/positive mood, thought process logical, goal directed ASAM Physical Assessment Intoxication an d Withdrawal signs Intoxication signs: No signs of intoxication are present during examination. . Withdrawal Signs: No withdrawal signs ar e present during examination. CIWA-AR NAUSEA AND VOMITING: Do you feel sick to your stomach? Have you vomited? Observation. 0 No nausea and no vomiting 11:04 am clonidine 0.1 mg self administered with supervision client instructed on medication Clonidine can cause low blood pressure and should not be taken if your blood pressure is less than 100/60. Symptoms of low blood pressure include blurred or fading vision, dizzy or lightheaded feelings, fainting, fatigue, and difficulty concentrating. If you are experiencing symptoms of low blood pressure, do not take clonidine. If your blood pressure falls too low, you may experience shock, which could become life threatening. Symptoms of shock include confusion, cold and clammy skin, pale skin color, rapid and shallow breathing, and weak and rapid pulse. If these symptoms occur, call 911. 11:30 am repeat c/p 174/100 [employer]ER SWORD[employer] Codie informed continue to monitor and repeat b/p 12:05 pm b/p 146/90 returned client to [facility] TREM[facility] - Arms extended and f ingers spread apart. Observation. 0 no tremor PAROXYSMAL SWEATS - Observation. 0 no sw eat visible ANXIETY - Do you feel nervous? Observa tion. 1 mildly anxious TACTILE DISTURBANCES - Have you any itching, pins and needles sensations, any burning, any numbness, or do you feel bugs crawling on or under your skin? Observation 0 none AUDITORY DISTURBANCES - Are you more aware of sounds around you? Are they harsh? Do they frighten you? Are you hearing anything that is disturbing you? Are you hearing things you know are not there? Observation. 0 not present VISUAL DISTURBANCES - Does the light appear to be too bright? Is its color different? Does it hurt your eyes? Are you seeing anything that is disturbing you? Are you seeing things you know are not there? Observation. 0 not present HEADACHE, FULLNESS IN HEAD - Does your head feel different? Does it feel like there is a band around your head? Do not rate for dizziness or lightheadedness. Otherwise, rate severity. 0 not present AGITATION - Observation 0 normal activit y ORIENTATION AND CLOUDING OF SENSORIUM - What day is this? Where are you? Who am I? 0 oriented and can do serial additions Time of Assessment: 6594
--- OUTSIDE RECORDS SUMMARY | 2025-05-09 14:07 | XMS_ITS | Clinical Summary ---
Author Organization [facility] Address [address] [place] [address] Phone Care Team Providers Care Office Messenger Name Role Phone Provider, None Primary Care Provider Unavailabl e Allergies Active Allergy Reactions Criticality Noted Date Comments Shrimp (Diagnostic) Hives Medium 11/10/2017 Medications HYDROcodone-aldo taminophen (NORCO) 10-325 MG Tablet Take 1 Tab by mouth every 6 hours as needed for Moderate or more severe pain. 120 Tab 09/20/2018 Active losartan (COZAAR) 50 MG Tablet Take 1 Tab by mouth daily. 90 Tab 3 10/20/2018 Active promethazine-co deine (PHENERGAN WITH CODEINE) 6.25-10 MG/5ML Syrup Take 5 mL by mouth every 4 hours as needed for Cough. 120 mL 01/18/2019 Active losartan (Cozaar) 50 MG Tablet Take 1 Tablet by mouth daily. 30 Tablet 06/14/2022 Active Active Problems No known active problems Encounters Date Type Department Care Team Description 05/01/2025 3:56 AM CDT - 05/01/2025 4:57 AM CDT [facility] Emergency [address] [place] [address] Steven Sanchez MD Abscess of left shoulder Discharge Disposition: Discharged to home or Selfcare 05/01/2025 Travel from Last 3 Months Immunizations Immunization Administration Dates Next Due Influenza Vaccine, Quadrivalent, PF 08/17/2018 TDAP Vaccine 06/14/2022 Social History Tobacco Use Types Packs/Day Years Used Date Smoking Tobacco: Every Day Cigarettes Smokeless Tobacco: Never Tobacco Cessation:Ready to Q uit: Yes; Counseling Given: Yes Alcohol Use Standard Drinks/Week Comments Yes 8 (1 standard drink = 0.6 oz pur e alcohol) daily PHQ-2 Answer Date Recorded PHQ-2 Score 0 2019 Sex and Gender Information Value Date Recorded Sex Assigned at Not on file Legal Sex Male 7:49 PM CDT Gender Identity Not on file Sexual Orientation Not on file Last Filed Vital Signs Vital Sign Reading Time Taken Comments Blood Pressure 123/72 05/01/2025 4:51 AM CDT Pulse 87 05/01/2025 4:51 AM CDT Temperature 36.5 C (97.7 F) 05/01/2025 4:12 AM CDT Respiratory Rate 18 05/01/2025 4:51 AM CDT Oxygen Saturation 98% 05/01/2025 4:51 AM CDT Inhaled Oxygen Concentration - - Weight 68 kg (150 lb) 05/01/2025 4:12 AM CDT Height 167.6 cm (5' 6) 05/01/2025 4:12 AM CDT Body Mass Index 24.21 05/01/2025 4:12 AM CDT Plan of Treatment Health Maintenance Due Date Last Done Comments Hepatitis C Virus (HCV) Screening 1966 Hepatitis B Immunization (1 of 3 - 19+ 3-dose series) 1985 Pneumococcal Immunization (5 0+ years) (1 of 2 - PCV) 1985 Cologuard 2011 Colonoscopy 2011 Colorectal Cancer Screening 2011 Immunochemical Fecal Occult Blood 2011 Zoster Immunization (1 of 2) 2016 PSA Discussion 2021 SARS-COV-2 Immunization ( - season) 2024 Influenza Immunization (#1) 2025 11/0 04/2018, 11/16/2017 Td Immunization Every 10 Yea rs (Adults With 1 Tdap) 06/14/2032 06/14/2022, 11/16/2017 Respiratory Syncytial Virus (RSV) Immunization (Adult) (1 - 1-dose 75+ series) 2041 DTaP/Tdap/Td Immunization Discontinued 2021, 11/16/2017 Human Papillomavirus (HPV) Immunization Aged Out No longer eligible based on patient's age to complete this topic Meningococcal Immunization (ACWY) Aged Out No longer eligible based on patient's age to complete this topic Rotavirus Immunization Aged Out No lo nger eligible based on patient's age to complete this topic Procedures Procedure Name Priority Date/Time Associated Diagnosis Comments INCISION AND DRAINAGE Routine 05/01/2025 4:45 AM CDT from Last 3 Months Results * Incision and Drainage (05/01/2025 4:45 AM CDT) Narrative Steven Sanchez MD - 05/01/2025 4:45 AM CDT Steven Sanchez MD 05/01/2025 4:50 AM Incision and Drainage Performed by: Steven Sanchez MD Authorized by: Steven Sanchez MD Consent: Consent obtained: Verbal Consent given by: Patient [place] protocol: Patient identity confirmed: Verbally with patient Location: Type: Abscess Location: Trunk Trunk location: Back Pre-procedure details: Skin preparation: Povidone-iodine Sedation: Sedation type: None Anesthesia: Anesthesia method: Local infiltration Local anesthetic: Bupivacaine 0.25% WITH epi Procedure type: Complexity: Simple Procedure details: Ultrasound guidance: no Needle aspiration: no Incision types: Stab incision Incision depth: Submucosal Wound management: Probed and deloculated Drainage: Purulent Drainage amount: Scant Wound treatment: Wound left open Packing materials: None Post-procedure details: Procedure completion: Tolerated well, no immediate complications Comments: I numbed the area up with a TB syringe and a very small amount of Marcaine with epi. Then using an 11 blade a small incision was made and a very small amount of purulent yellow pus was drained. The wound cavity was then thoroughly deloculated and there was no additional drainage. No foreign body. Patient tolerated the procedure well. A simple Band-Aid was placed over the open incision. Steven Sanchez MD PROCEDURE/MINOR SURGICAL O RDERABLES Final Result from Last 3 Months Insurance [employer]ID [employer]ICAID [employer] Care Teams Office Messenger Relationship Specialty Start Date End Date Provider, None [place] PCP - General 11/12/21
[2025-05-09 14:16] VITALS: BP 155/92; PULSE 57; RESP 18
[2025-05-09 14:33] VITALS: BP 146/90; PULSE 56; RESP 14; O2SAT 100
--- NOTE | 2025-05-09 14:52 | ED_ITS ---
HPI - General Adult General Chief complaint: Recheck/Abnormal Lab/Rx Stated complaint: htn Time Seen by Provider: 05/09/25 13:16 Source: patient Mode of arrival: ambulatory Limitations: no limitations History of Present Illness HPI narrative: 59-year-old with a history of hypertension, hyperlipidemia was sent from [facility] for elevated blood pressure. Patient presently denies having any headache or blurred vision, chest pain or shortness of breath. Onset (ago): day(s) (1) Severity: mild Relieving factors: none Exacerbating factors: none Related Data Home Medications ?Medication ?Instructions ?Recorded ?Confirmed ?Last Taken ?Type atorvastatin 80 mg tablet 80 mg PO HS 05/09/25 05/09/25 Unknown History diltiazem HCl 240 mg 240 mg PO DAILY 05/09/25 05/09/25 05/09/25 History capsule,extended release 24 hr, controlled (DILT-XR) folic acid 1 mg tablet 1 mg PO DAILY 05/09/25 05/09/25 05/09/25 History lisinopril 40 mg tablet 40 mg PO DAILY 05/09/25 05/09/25 05/09/25 History Allergies Allergy/AdvReac Type Severity Reaction Status Date / Time shrimp AdvReac Intermediate Hives Verified 05/09/25 13:24 Review of Systems 2 Review of Systems: All systems reviewed & are unremarkable except as noted in HPI and below Constitutional: Constitutional: Reports no additional constitutional complaints Eyes: Eyes: Reports no additional eye complaints ENT: Reports system reviewed and no additional complaints, except as documented Cardiovascular: Cardiovascular: Reports no additional cardiovascular complaints Respiratory: Respiratory: Reports no additional respiratory complaints Gastrointestinal: Gastrointestinal: Reports no additional gastrointestinal complaints Genitourinary: Genitourinary: Reports no additional male genitourinary complaints Exam 2 Narrative: GENERAL: Well-appearing, well-nourished, and in no acute distress. HEAD: Normocephalic, atraumatic. EYES: PERRLA and EOMI. ENT: Nares clear, no rhinorrhea or epistaxis. Mucous membranes moist. NECK: Supple. CHEST: Clear to auscultation. No respiratory distress. HEART: Regular rate and rhythm. No murmur heard. Normal peripheral pulses. ABDOMEN: Soft, nontender, nondistended, normal active bowel sounds. EXTREMITIES: Normal range of motion. No edema. SKIN: Warm, dry, no rash. NEURO: No focal deficits. Alert and oriented x3. PSYCH: Normal mood and affect. Course Course Emergency Course: Patient comfortably resting in no discomfort. Informed him about his lab work. His blood pressure is 129/79. Advised him to continue his home medications . Vital Signs Vital signs: Vital Signs Temperature 36.7 C 05/09/25 13:16 Pulse Rate 58 L 05/09/25 13:16 Respiratory Rate 17 05/09/25 13:16 Blood Pressure 158/92 H 05/09/25 13:16 Pulse Oximetry 97 05/09/25 13:16 Oxygen Delivery Room Air 05/09/25 13:16 Temperature 36.7 C 05/09/25 13:16 Pulse Rate 56 L 05/09/25 14:33 Respiratory Rate 14 05/09/25 14:33 Blood Pressure 146/90 H 05/09/25 14:33 Pulse Oximetry 100 05/09/25 14:33 Oxygen Delivery Room Air 05/09/25 13:16 Medical Decision Making Vital Signs Vital Signs: Vital Signs Temperature 36.7 C 05/09/25 13:16 Pulse Rate 58 L 05/09/25 13:16 Respiratory Rate 17 05/09/25 13:16 Blood Pressure 158/92 H 05/09/25 13:16 Pulse Oximetry 97 05/09/25 13:16 Oxygen Delivery Room Air 05/09/25 13:16 Temperature 36.7 C 05/09/25 13:16 Pulse Rate 56 L 05/09/25 14:33 Respiratory Rate 14 05/09/25 14:33 Blood Pressure 146/90 H 05/09/25 14:33 Pulse Oximetry 100 05/09/25 14:33 Oxygen Delivery Room Air 05/09/25 13:16 Lab Data 05/09/25 13:47 05/09/25 13:47 Labs: Lab Results 05/09/25 Range/Units 13:47 WBC 5.0 (4.5-10.0) K/mm3 RBC 3.84 L (4.6-6.20) M/mm3 Hgb 12.2 L (14.0-18.0) g/dL Hct 37.0 L (42.0-52.0) % MCV 96.4 (80-100) fl MCH 31.8 (26-34) pg MCHC 33.0 (32-36) g/dl RDW 12.9 (11.5-14.5) % Plt Count 309 (150-375) k/mm3 MPV 9.3 (7.4-10.4) fl Immature Gran % (Auto) 0.4 (0-0.5) % Neut % (Auto) 42.1 L (45.5-73.1) % Lymph % (Auto) 35.9 (18.3-44.2) % Spalding % (Auto) 12.0 H (2.6-8.5) % Eos % (Auto) 8.4 H (0-4.4) % Baso % (Auto) 1.2 (0.2-1.2) % Lymph # (Auto) 1.80 (0.9-3.2) K/mm3 Spalding # (Auto) 0.6 (0.1-0.6) K/mm3 Eos # (Auto) 0.4 H (0-0.3) K/mm3 Baso # (Auto) 0.1 (0.0-0.1) K/mm3 Abs Immat Gran (auto) 0.02 (0.00-0.031) K/mm3 Absolute Neuts (auto) 2.1 (1.3-6.7) K/mm3 Absolute Nucleated RBC 0.000 (0.0-0.012) K/mm3 Nucleated RBC % 0.0 (0.0-0.2) % Sodium 136 L (137-145) mmol/L Potassium 3.9 (3.4-5.0) mmol/L Chloride 103 (98-107) mmol/L Carbon Dioxide 27 (22-30) mmol/L Anion Gap 6 (4-12) mmol/L BUN 7 L (9-20) mg/dL Creatinine 0.94 (0.7-1.3) mg/dL Estim Creat Clear Calc 63 ml/min Estimated GFR > 60 (59 - ) Glucose 101 (65-110) mg/dL Calcium 9.0 (8.4-10.2) mg/dL Total Bilirubin 0.2 (0.2-1.3) mg/dL AST 28 (17-59) U/L ALT 20 (6-50) U/L Alkaline Phosphatase 78 (38-126) U/L Total Protein 6.8 (6.3-8.2) g/dL Albumin 3.9 (3.5-5.1) g/dL Discharge Plan Discharge Clinical Impression: Hypertension Qualifiers: Hypertension type: primary hypertension Qualified Code(s): I10 - Essential (primary) hypertension Patient Disposition: Home Condition: Stable Instructions: Hypertension (ED) Additional Instructions: Continue home medication, follow-up with the primary doctor Patient Language: Zambian Prescriptions: No Action atorvastatin 80 mg tablet 80 mg PO HS diltiazem HCl [DILT-XR] 240 mg capsule,ext.rel 24h degradable 240 mg PO DAILY folic acid 1 mg tablet 1 mg PO DAILY lisinopril 40 mg tablet 40 mg PO DAILY Follow-up/Referrals: Guillermo Peoples MD [Physician] - PHYSICIAN,APPLICATION DEFENSE MANAGER [Primary Care Provider] - Time of Disposition: 14:54
--- NOTE | 2025-05-09 15:02 | PC.NURSE ---
Sana called at [phone] for transportation back
[2025-05-09 15:06] VITALS: BP 150/94; PULSE 55; RESP 17; O2SAT 100
== END 2025-05-09 15:08 | disposition home or self-care (01) ==
PROVIDERS: Emergency Provider Family Medicine
DX: I10 Essential (primary) hypertension (principal); E78.5 Hyperlipidemia, unspecified
CPT/HCPCS: 36415; 80053; 85025; 99283